=== PATIENT | female | born 1975 | race African-American/Black ===

== ENCOUNTER 2017-09-22 21:35 | Emergency (ER) | payer OTHER ==
[~2017-09-22] VITALS: Ht 160 cm; Wt 101.2 kg
--- OUTSIDE RECORDS SUMMARY | 2017-09-22 21:37 | XMS REPORT ---
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 Allergies, Adverse Reactions, Alerts This patient has no known allergies or adverse reactions. Medications This patient has no known medications. Encounters Start Date/Time End Date/Time Encounter Type Admission Type Attending [facility] Care Department Encounter ID 2017-10-26 00:00:00 2017-10-26 00:00:00 Outpatient [facility] [id number] 2017-09-12 15:39:06 2017-09-12 15:39:06 Outpatient [facility] [id number] 2017-09-12 13:19:03 2017-09-12 13:19:03 Outpatient [facility] [id number] 2017-09-12 09:22:52 2017-09-12 09:22:52 Outpatient [facility] [id number] 2017-08-01 00:00:00 2017-08-01 00:00:00 Outpatient [facility] [id number] 2017-07-20 07:57:59 2017-07-20 07:57:59 Outpatient [facility] [id number] 2017-07-18 00:00:00 2017-07-18 00:00:00 Outpatient [facility] [id number] 2017-06-27 08:44:25 2017-06-27 08:44:25 Outpatient [facility] [id number] 2017-06-27 00:00:00 2017-06-27 00:00:00 Outpatient [facility] [id number] 2017-06-22 08:21:48 2017-06-22 08:21:48 Outpatient [facility] [id number] 2017-05-24 13:43:41 2017-05-24 13:43:41 Outpatient [facility] [id number] 2017-05-24 12:24:44 2017-05-24 12:24:44 Outpatient [facility] [id number] 2017-05-23 12:15:28 2017-05-23 12:15:28 Outpatient [facility] [id number] 2017-05-23 11:27:53 2017-05-23 11:27:53 Outpatient [facility] [id number] 2017-05-23 00:00:00 2017-05-23 00:00:00 Outpatient [facility] [id number] 2017-05-01 00:00:00 2017-05-01 00:00:00 Outpatient [facility] [id number] 2017-05-01 00:00:00 2017-05-01 00:00:00 Outpatient [facility] [id number] 2017-04-27 07:29:25 2017-04-27 07:29:25 Outpatient [facility] [id number] 2017-04-25 11:14:03 2017-04-25 11:14:03 Outpatient [facility] [id number] 2017-03-16 00:00:00 2017-03-16 00:00:00 Outpatient [facility] [id number] 2017-03-09 00:00:00 2017-03-09 00:00:00 Outpatient [facility] [id number] 2017-03-01 00:00:00 2017-03-01 00:00:00 Outpatient [facility] [id number] 2017-02-23 11:05:12 2017-02-23 11:05:12 Outpatient [facility] [id number] 2017-02-23 10:14:23 2017-02-23 10:14:23 Outpatient [facility] [id number] 2017-02-23 08:41:58 2017-02-23 08:41:58 Outpatient [facility] [id number] 2017-01-31 08:33:33 2017-01-31 08:33:33 Outpatient [facility] [id number] 2017-01-31 08:30:06 2017-01-31 08:30:06 Outpatient [facility] [id number] 2017-01-30 15:46:45 2017-01-30 15:46:45 Outpatient [facility] [id number] 2017-01-12 15:35:30 2017-01-12 15:35:30 Outpatient [facility] [id number] 2017-01-12 00:00:00 2017-01-12 00:00:00 Outpatient [facility] [id number] 2017-01-10 00:00:00 2017-01-10 00:00:00 Outpatient [facility] [id number] 2016-12-30 00:00:00 2016-12-30 00:00:00 Outpatient [facility] [id number] 2016-12-06 00:00:00 2016-12-06 00:00:00 Outpatient [facility] [id number] 2016-12-02 10:48:11 2016-12-02 10:48:11 Outpatient [facility] [id number] 2016-12-02 09:11:43 2016-12-02 09:11:43 Outpatient [facility] [id number] 2016-12-02 08:27:22 2016-12-02 08:27:22 Outpatient [facility] [id number] 2016-12-02 00:00:00 2016-12-02 00:00:00 Outpatient [facility] [id number] 2016-12-02 00:00:00 2016-12-02 00:00:00 Outpatient [facility] [id number] 2016-12-02 00:00:00 2016-12-02 00:00:00 Outpatient [facility] [id number] 2016-11-15 08:28:24 2016-11-15 08:28:24 Outpatient [facility] [id number] 2014-12-11 08:31:53 2014-12-11 08:31:53 Outpatient [facility] [id number]
[2017-09-22] MEDS ORDERED: ALBUTEROL SULFAT2 MG PO (21:59)
[2017-09-22] MEDS ORDERED: AMLODIPINE BESY10 MG PO (21:59)
[2017-09-22] MEDS ORDERED: MORPHINE SULFATE 2 MG/ML SYR IV STA (22:27)
[2017-09-22] MEDS ORDERED: ONDANSETRON HCL INJ 2 MG/ML VIAL IV STA (22:34)
[2017-09-22] MEDS ORDERED: SODIUM CHLORIDE 0.9% 1000ML 1,000 ML IV SCH (23:30)
[2017-09-23 00:45] VITALS: BP 128/84
== END 2017-09-23 00:50 | disposition home or self-care (01) ==
LOC: FSED 21:35
DX: M54.5 Low back pain (principal); K58.9 Irritable bowel syndrome, unspecified; F17.210 Nicotine dependence, cigarettes, uncomplicated
CPT/HCPCS: 74176; 81003; 99283; J2270; J2405

== ENCOUNTER 2018-05-22 21:38 | Emergency (ER) | payer MEDICARE ==
[~2018-05-22] VITALS: Ht 160 cm; Wt 63.5 kg
[~2018-05-22 21:38] MED LIST: ALBUTEROL SULFAT2 MG PO; AMLODIPINE BESY10 MG PO
--- OUTSIDE RECORDS SUMMARY | 2018-05-22 21:42 | XMS REPORT | Continuity of Care Document ---
Author Author [facility] Address Unknown Phone Unavailable Problems Problem Status Onset Date Classification Date Reported Comments Source LWBS Active 07/20/2012 [facility] BOIL RIGHT ARMPIT, STOMACH PAIN Active 07/16/2012 [facility] ABDOMINAL/BACK PAIN Active 06/24/2012 [facility] Diabetes mellitus type 2 Active Problem 07/23/2012 [facility] Hypertension Active Problem 07/23/2012 [facility] Ulcer<sup>1</sup> Active Problem 07/23/2012 1gastric ulcer [facility] Medications Medication Details Route Status Patient Instructions Ordering Provider Order Date Source [place] 5/325 oral tablet 1-2 tab, PO, Q4-6H, PRN, 15 tab, Pain, Substitution Allowed, Maintenance PO Active [facility] 07/17/2012 [facility] clindamycin 300 mg oral capsule 300 mg, 1 cap, PO, QID, 28 cap, Substitution Allowed PO Active [facility] 07/17/2012 [facility] acetaminophen-hydrocodone 325 mg-5 mg oral tablet 1 tab, Route: PO, Dosing Weight 99.091, kg, ONCE, STAT, Start date: 07/16/12 18:33:00, Stop date: 07/16/12 18:33:00 PO No Longer Active [facility] 07/17/2012 [facility] Cipro 500 mg oral tablet 500 mg, 1 tab, PO, Q12H, 10 tab, Substitution Allowed, TAB PO Active 06/25/2012 [facility] Protonix 20 mg oral enteric coated tablet 40 mg, 2 tab, PO, Daily, 60 tab, Substitution Allowed, ECTAB PO Active 06/25/2012 [facility] Cipro 500 mg oral tablet 500 mg, 1 tab, PO, Q12H, 6 tab, Substitution Allowed, TAB PO No Longer Active 06/25/2012 [facility] metFORmin 500 mg oral tablet 500 mg, 1 tab, PO, BID, 30 tab, Substitution Allowed PO Active 06/25/2012 [facility] diclofenac sodium 75 mg oral enteric coated tablet 75 mg, 1 tab, PO, BID, 60 tab, Substitution Allowed, ECTAB PO Active 06/25/2012 [facility] Flexeril 10 mg oral tablet 10 mg, 1 tab, PO, Daily, PRN, 30 tab, for spasm, Substitution Allowed, TAB PO Active 06/25/2012 [facility] Advil 200 mg oral tablet 400 mg, 2 tab, PO, Q4H, PRN, 120 tab, Pain, Substitution Allowed, TAB PO Active 06/25/2012 [facility] Maalox 30 mL, Route: PO, Drug Form: SUSP, Dosing Weight 100, kg, ONCE, Start date: 06/24/12 18:46:00, Stop date: 06/24/12 18:46:00 PO No Longer Active [place] 06/25/2012 [facility] Xylocaine Viscous 2% mucous membrane solution 30 mL, Route: PO, Drug Form: SOLN, Dosing Weight 100, kg, ONCE, Start date: 06/24/12 18:46:00, Stop date: 06/24/12 18:46:00 PO No Longer Active [place] 06/25/2012 [facility] Protonix 40 mg, 1 tab, Route: PO, Drug form: ECTAB, ONCE, Dosing Weight 100, kg, Priority: STAT, Start date: 06/24/12 18:44:00, Stop date: 06/24/12 18:44:00 PO No Longer Active [place] 06/25/2012 [facility] morphine Sulfate 4 mg, 1 mL, Route: IVP, Drug form: INJ, ONCE, Dosing Weight 100, kg, Priority: STAT, Start date: 06/24/12 17:16:00, Stop date: 06/24/12 17:16:00 IVP No Longer Active [place] 06/24/2012 [facility] Zofran 4 mg, 2 mL, Route: IVP, Drug form: INJ, ONCE, Dosing Weight 100, kg, Priority: STAT, Start date: 06/24/12 17:16:00, Stop date: 06/24/12 17:16:00 IVP No Longer Active [place] 06/24/2012 [facility] NS (Bolus) IV 1,000 mL, 1000 ml/hr, Route: IV, Drug Form: INJ, Dosing Weight 100, kg, ONCE, STAT, Start date: 06/24/12 17:16:00, Duration: 1 doses or times, Stop date: 06/24/12 17:16:00 IV No Longer Active [place] 06/24/2012 [facility] Allergies, Adverse Reactions, Alerts Substance Category Reaction Severity Reaction type Status Date Reported Comments Source Immunizations Immunization Date Given Site Status Last Updated Comments Source Results Order Name Results Value Reference Range Date Interpretation Comments Source CHEMISTRY Lactic Acid Lvl 0.8 mMol/L 0.5 - 2.2 06/25/2012 Normal [facility] CHEMISTRY Lipase Lvl 112 unit/L 73 - 393 06/25/2012 Normal [facility] CHEMISTRY eGFR 94 mL/min/1.73m2 06/25/2012 NA 1Result Comment: The eGFR is calculated using the CKD-EPI formula. In most young, healthy individuals the eGFR will be >90 mL/min/1.73m2. The eGFR declines with age. An eGFR of 60-89 may be normal in some populations, particularly the elderly, for whom the CKD-EPI formula has not been extensively validated. Use of the eGFR is not recommended in the following populations: Individuals with unstable creatinine concentrations, including patients and those with serious co-morbid conditions. Patients with extremes in muscle mass or diet. The data above are obtained from the National Kidney Disease Education Program (NKDEP) which additionally recommends that when the eGFR is used in patients with extremes of body mass index for purposes of drug dosing, the eGFR should be multiplied by the estimated BMI. [facility] CHEMISTRY B/C Ratio 9 6 - 25 06/25/2012 Normal [facility] CHEMISTRY AST 8 unit/L 0 - 37 06/25/2012 Normal [facility] CHEMISTRY AGAP 9.2 meq/L 10.0 - 20.0 06/25/2012 LOW [facility] CHEMISTRY Globulin 4.2 g/dL 2.0 - 4.0 06/25/2012 HI [facility] CHEMISTRY A/G Ratio 0.9 0.7 - 1.6 06/25/2012 Normal [facility] CHEMISTRY Potassium Lvl 4.2 meq/L 3.5 - 5.1 06/25/2012 Normal [facility] CHEMISTRY Chloride Lvl 106 meq/L 95 - 109 06/25/2012 Normal [facility] CHEMISTRY CO2 26 meq/L 24 - 32 06/25/2012 Normal [facility] CHEMISTRY BUN 8 mg/dL 7 - 22 06/25/2012 Normal [facility] CHEMISTRY Glucose Lvl 93 mg/dL 70 - 99 06/25/2012 Normal 2Interpretive Data: Adult reference range values reflect the clinical guidelines of the [place] [employer]. [facility] CHEMISTRY Alk Phos 64 unit/L 39 - 136 06/25/2012 Normal [facility] CHEMISTRY Total Protein 7.8 g/dL 6.4 - 8.4 06/25/2012 Normal [facility] CHEMISTRY Creatinine Lvl 0.9 mg/dL 0.5 - 1.4 06/25/2012 Normal [facility] CHEMISTRY Sodium Lvl 137 meq/L 135 - 145 06/25/2012 Normal [facility] CHEMISTRY Calcium Lvl 8.5 mg/dL 8.5 - 10.5 06/25/2012 Normal [facility] CHEMISTRY Bili Total 0.3 mg/dL 0.2 - 1.3 06/25/2012 Normal [facility] CHEMISTRY Albumin Lvl 3.6 g/dL 3.5 - 5.0 06/25/2012 Normal [facility] CHEMISTRY ALT 14 unit/L 0 - 65 06/25/2012 Normal [facility] HEMATOLOGY Basophils # 0.2 K/CMM 0.0 - 0.2 06/25/2012 Normal [facility] HEMATOLOGY Eosinophils # 0.4 K/CMM 0.0 - 0.5 06/25/2012 Normal [facility] HEMATOLOGY Monocytes # 0.7 K/CMM 0.0 - 0.8 06/25/2012 Normal [facility] HEMATOLOGY Lymphocytes # 4.1 K/CMM 1.0 - 5.5 06/25/2012 Normal [facility] HEMATOLOGY Segs-Bands # 3.6 K/CMM 1.5 - 8.1 06/25/2012 Normal [facility] HEMATOLOGY Lymphocytes 45.5 % 20.0 - 40.0 06/25/2012 [facility] HEMATOLOGY Eosinophils 4.1 % 0.0 - 4.0 06/25/2012 [facility] HEMATOLOGY Monocytes 7.9 % 2.0 - 12.0 06/25/2012 Normal [facility] HEMATOLOGY Basophils 2.5 % 0.0 - 1.0 06/25/2012 [facility] HEMATOLOGY Segs 40.0 % 45.0 - 75.0 06/25/2012 LOW [facility] HEMATOLOGY WBC 9.0 K/CMM 3.7 - 10.4 06/25/2012 Normal [facility] HEMATOLOGY RBC 4.27 M/CMM 4.20 - 5.40 06/25/2012 Normal [facility] HEMATOLOGY MCHC 32.8 g/dL 32.0 - 36.0 06/25/2012 Normal [facility] HEMATOLOGY MCH 30.7 pg 27.0 - 31.0 06/25/2012 Normal [facility] HEMATOLOGY MCV 93.5 fL 81.0 - 99.0 06/25/2012 Normal [facility] HEMATOLOGY Hct 39.9 % 36.0 - 48.0 06/25/2012 Normal [facility] HEMATOLOGY Hgb 13.1 g/dL 12.0 - 16.0 06/25/2012 Normal [facility] HEMATOLOGY Platelet 245 K/CMM 133 - 450 06/25/2012 Normal [facility] HEMATOLOGY RDW 13.9 % 11.5 - 14.5 06/25/2012 Normal [facility] HEMATOLOGY MPV 9.1 fL 7.4 - 10.4 06/25/2012 Normal [facility] CHEMISTRY U Preg Negative (06/24/2012 17:47:00) Negative 06/24/2012 Normal [facility] URINALYSIS UA RBC None Seen (06/24/2012 17:47:00) 0 - 2 06/24/2012 Normal [facility] URINALYSIS UA Bacteria Few /HPF (06/24/2012 17:47:00) None Seen 06/24/2012 Normal [facility] URINALYSIS Micro? Performed (06/24/2012 17:47:00) 06/24/2012 Normal [facility] URINALYSIS UA Sq Epi Occasional /LPF (06/24/2012 17:47:00) Few 06/24/2012 Normal [facility] URINALYSIS UA WBC 11-20 /HPF *ABN* (06/24/2012 17:47:00) None Seen 06/24/2012 ABN [facility] URINALYSIS UA Leuk Est Moderate *ABN* (06/24/2012 17:47:00) Negative 06/24/2012 ABN [facility] URINALYSIS UA Blood Negative (06/24/2012 17:47:00) Negative 06/24/2012 Normal [facility] URINALYSIS UA Nitrite Negative (06/24/2012 17:47:00) Negative 06/24/2012 Normal [facility] URINALYSIS UA Urobilinogen 0.2 EU/dL 0.1 - 1.0 06/24/2012 Normal [facility] URINALYSIS UA Turbidity Slight Cloudy (06/24/2012 17:47:00) Clear 06/24/2012 Normal [facility] URINALYSIS UA Glucose Negative (06/24/2012 17:47:00) Negative 06/24/2012 Normal [facility] URINALYSIS UA Ketones Negative *NA* (06/24/2012 17:47:00) Negative 06/24/2012 NA [facility] URINALYSIS UA pH 6.0 5.0 - 8.0 06/24/2012 Normal [facility] URINALYSIS UA Protein Negative (06/24/2012 17:47:00) Negative 06/24/2012 Normal [facility] URINALYSIS UA Spec Grav 1.015 <=1.030 06/24/2012 Normal [facility] URINALYSIS UA Color Yellow *NA* (06/24/2012 17:47:00) Yellow 06/24/2012 NA [facility] URINALYSIS UA Bili Negative *NA* (06/24/2012 17:47:00) Negative 06/24/2012 NA [facility] Vital Signs Vital Sign Value Date Comments Source Weight 99.091 07/21/2012 [facility] Height 162.56 cm 07/21/2012 [facility] Weight 99.091 07/16/2012 [facility] Height 162.56 cm 07/16/2012 [facility] Height 165.10 cm 06/24/2012 [facility] Weight 100.000 06/24/2012 [facility] Encounters Location Location Details Encounter Type Encounter Number Reason For Visit Attending Provider ADM Date DC Date Status Source [facility] Emergency [id number] COLIN WEINER 06/24/2012 06/24/2012 Active [facility] Emergency [id number] CARRILLO ALEMAN 07/16/2012 07/16/2012 Active [facility] [id number] DOMI FAYE 07/20/2012 07/21/2012 Active [facility] Procedures Procedure Code Date Perfomer Comments Source
--- OUTSIDE RECORDS SUMMARY | 2018-05-22 21:42 | XMS REPORT | CCD ---
Author Author Auto Generated Organization [facility] Address Unknown Phone Unavailable Care Team Providers Care Companion Name Role Phone Press, Jacky Steve CP Allergies, Adverse Reactions, Alerts Substance Reaction Status NKDA Active Problem List Condition Effective Dates Status Diabetes mellitus type 2 Active Hypertension Active Ulcer1 Active 1gastric ulcer Medications Medication Instructions Start Date End Date Status [place] 5/325 oral 1-2 tab, PO, Q4-6H, PRN, 15 tab, 07/16/2012 07/21/2012 Ordered tablet Pain, Substitution Allowed, Maintenance clindamycin 300 mg 300 mg, 1 cap, PO, QID, 28 cap, 07/16/2012 07/23/2012 Ordered oral capsule Substitution Allowed acetaminophen-hydroc 1 tab, Route: PO, Dosing Weight 07/16/2012 07/16/2012 Completed odone 325 mg-5 mg 99.091, kg, ONCE, STAT, Start date: oral tablet 07/16/12 18:33:00, Stop date: 07/16/12 18:33:00 Vital Signs Most recent to oldest [Reference Range]: 1 Height 162.56 cm (07/16/2012 17:02:00) Weight 99.091 kg (07/16/2012 17:02:00)
--- OUTSIDE RECORDS SUMMARY | 2018-05-22 21:42 | XMS REPORT | CCD ---
Author Author Auto Generated Organization [facility] Address Unknown Phone Unavailable Care Team Providers Care [employer] Director Name Role Phone Jim Nievesin Marcial CP Allergies, Adverse Reactions, Alerts Substance Reaction Status NKDA Active Problem List Condition Effective Dates Status Diabetes mellitus type 2 Active Hypertension Active Ulcer1 Active 1gastric ulcer Medications Medication Instructions Start Date End Date Status Cipro 500 mg oral 500 mg, 1 tab, PO, Q12H, 10 tab, 06/24/2012 06/29/2012 Ordered tablet Substitution Allowed, TAB Protonix 20 mg oral 40 mg, 2 tab, PO, Daily, 60 tab, 06/24/2012 Ordered enteric coated Substitution Allowed, ECTAB tablet Cipro 500 mg oral 500 mg, 1 tab, PO, Q12H, 6 tab, 06/24/2012 06/24/2012 Discontinued tablet Substitution Allowed, TAB metFORmin 500 mg 500 mg, 1 tab, PO, BID, 30 tab, 06/24/2012 Ordered oral tablet Substitution Allowed diclofenac sodium 75 75 mg, 1 tab, PO, BID, 60 tab, 06/24/2012 Ordered mg oral enteric Substitution Allowed, ECTAB coated tablet Flexeril 10 mg oral 10 mg, 1 tab, PO, Daily, PRN, 30 06/24/2012 Ordered tablet tab, for spasm, Substitution Allowed, TAB Advil 200 mg oral 400 mg, 2 tab, PO, Q4H, PRN, 120 06/24/2012 Ordered tablet tab, Pain, Substitution Allowed, TAB morphine Sulfate 4 mg, 1 mL, Route: IVP, Drug form: 06/24/2012 06/24/2012 Completed INJ, ONCE, Dosing Weight 100, kg, Priority: STAT, Start date: 06/24/12 17:16:00, Stop date: 06/24/12 17:16:00 Zofran 4 mg, 2 mL, Route: IVP, Drug form: 06/24/2012 06/24/2012 Completed INJ, ONCE, Dosing Weight 100, kg, Priority: STAT, Start date: 06/24/12 17:16:00, Stop date: 06/24/12 17:16:00 NS (Bolus) IV 1,000 mL, 1000 ml/hr, Route: IV, 06/24/2012 06/24/2012 Completed Drug Form: INJ, Dosing Weight 100, kg, ONCE, STAT, Start date: 06/24/12 17:16:00, Duration: 1 doses or times, Stop date: 06/24/12 17:16:00 Maalox 30 mL, Route: PO, Drug Form: SUSP, 06/24/2012 06/24/2012 Completed Dosing Weight 100, kg, ONCE, Start date: 06/24/12 18:46:00, Stop date: 06/24/12 18:46:00 Xylocaine Viscous 2% 30 mL, Route: PO, Drug Form: SOLN, 06/24/2012 06/24/2012 Completed mucous membrane Dosing Weight 100, kg, ONCE, Start solution date: 06/24/12 18:46:00, Stop date: 06/24/12 18:46:00 Protonix 40 mg, 1 tab, Route: PO, Drug form: 06/24/2012 06/24/2012 Completed ECTAB, ONCE, Dosing Weight 100, kg, Priority: STAT, Start date: 06/24/12 18:44:00, Stop date: 06/24/12 18:44:00 Vital Signs Most recent to oldest [Reference Range]: 1 Height 165.10 cm (06/24/2012 17:06:00) Weight 100.000 kg (06/24/2012 17:06:00) Results URINALYSIS Most recent to oldest [Reference Range]: 1 UA Turbidity [Clear] Slight Cloudy (06/24/2012 17:47:00) UA Color [Yellow] Yellow *NA* (06/24/2012 17:47:00) UA pH [5.0-8.0] 6.0 (06/24/2012 17:47:00) UA Spec Grav [<=1.030] 1.015 (06/24/2012 17:47:00) UA Glucose [Negative] Negative (06/24/2012 17:47:00) UA Blood [Negative] Negative (06/24/2012 17:47:00) UA Ketones [Negative] Negative *NA* (06/24/2012 17:47:00) UA Protein [Negative] Negative (06/24/2012 17:47:00) UA Urobilinogen [0.1-1.0 EU/dL] 0.2 EU/dL (06/24/2012 17:47:00) UA Bili [Negative] Negative *NA* (06/24/2012 17:47:00) UA Leuk Est [Negative] Moderate *ABN* (06/24/2012 17:47:00) UA Nitrite [Negative] Negative (06/24/2012 17:47:00) UA WBC [None Seen /HPF] 11-20 /HPF *ABN* (06/24/2012 17:47:00) UA RBC [0-2] None Seen (06/24/2012 17:47:00) UA Bacteria [None Seen /HPF] Few /HPF (06/24/2012 17:47:00) UA Sq Epi [Few /LPF] Occasional /LPF (06/24/2012 17:47:00) Micro? Performed (06/24/2012 17:47:00) CHEMISTRY Most recent to oldest [Reference Range]: 1 Sodium Lvl [135-145 mEq/L] 137 mEq/L (06/24/2012 18:10:00) Potassium Lvl [3.5-5.1 mEq/L] 4.2 mEq/L (06/24/2012 18:10:00) Chloride Lvl [95-109 mEq/L] 106 mEq/L (06/24/2012 18:10:00) CO2 [24-32 mEq/L] 26 mEq/L (06/24/2012 18:10:00) AGAP [10.0-20.0 mEq/L] 9.2 mEq/L *LOW* (06/24/2012 18:10:00) Creatinine Lvl [0.5-1.4 mg/dL] 0.9 mg/dL (06/24/2012 18:10:00) eGFR 94 mL/min/1.73m2 1 *NA* (06/24/2012 18:10:00) BUN [7-22 mg/dL] 8 mg/dL (06/24/2012 18:10:00) B/C Ratio [6-25] 9 (06/24/2012 18:10:00) Glucose Lvl [70-99 mg/dL] 93 mg/dL 2 (06/24/2012 18:10:00) Total Protein [6.4-8.4 g/dL] 7.8 g/dL (06/24/2012 18:10:00) Albumin Lvl [3.5-5.0 g/dL] 3.6 g/dL (06/24/2012 18:10:00) Globulin [2.0-4.0 g/dL] 4.2 g/dL *HI* (06/24/2012 18:10:00) A/G Ratio [0.7-1.6] 0.9 (06/24/2012 18:10:00) Calcium Lvl [8.5-10.5 mg/dL] 8.5 mg/dL (06/24/2012 18:10:00) ALT [0-65 unit/L] 14 unit/L (06/24/2012 18:10:00) AST [0-37 unit/L] 8 unit/L (06/24/2012 18:10:00) Alk Phos [39-136 unit/L] 64 unit/L (06/24/2012 18:10:00) Bili Total [0.2-1.3 mg/dL] 0.3 mg/dL (06/24/2012 18:10:00) Lipase Lvl [73-393 unit/L] 112 unit/L (06/24/2012 18:10:00) Lactic Acid Lvl [0.5-2.2 mMol/L] 0.8 mMol/L (06/24/2012 18:10:00) U Preg [Negative] Negative (06/24/2012 17:47:00) 1Result Comment: The eGFR is calculated using [...] from the National Kidney Disease Education Program ( NKDEP) which additionally recommends that when the eGFR is used in patients with extremes of body mass index for purposes of drug dosing, the eGFR should be mul tiplied by the estimated BMI. 2Interpretive Data: Adult reference range values reflect the clinical guidelines of the [place] [employer]. HEMATOLOGY Most recent to oldest [Reference Range]: 1 WBC [3.7-10.4 K/CMM] 9.0 K/CMM (06/24/2012 18:10:00) RBC [4.20-5.40 M/CMM] 4.27 M/CMM (06/24/2012 18:10:00) Hgb [12.0-16.0 g/dL] 13.1 g/dL (06/24/2012:10:00) Hct [36.0-48.0 %] 39.9 % (06/24/2012 18:10:00) MCV [81.0-99.0 fL] 93.5 fL (06/24/2012 18:10:00) MCH [27.0-31.0 pg] 30.7 pg (06/24/2012 18:10:00) MCHC [32.0-36.0 g/dL] 32.8 g/dL (06/24/2012:10:00) RDW [11.5-14.5 %] 13.9 % (06/24/2012 18:10:00) Platelet [133-450 K/CMM] 245 K/CMM (06/24/2012 18:10:00) MPV [7.4-10.4 fL] 9.1 fL (06/24/2012:10:00) Segs [45.0-75.0 %] 40.0 % *LOW* (06/24/2012:10:00) Lymphocytes [20.0-40.0 %] 45.5 % *HI* (06/24/2012:10) Monocytes [2.0-12.0 %] 7.9 % (06/24/2012 18:10:00) Eosinophils [0.0-4.0 %] 4.1 % *HI* (06/24/2012 18:10:00) Basophils [0.0-1.0 %] 2.5 % *HI* (06/24/2012 18:10:00) Segs-Bands # [1.5-8.1 K/CMM] 3.6 K/CMM (06/24/2012 18:10:00) Lymphocytes # [1.0-5.5 K/CMM] 4.1 K/CMM (06/24/2012 18:10:00) Monocytes # [0.0-0.8 K/CMM] 0.7 K/CMM (06/24/2012 18:10:00) Eosinophils # [0.0-0.5 K/CMM] 0.4 K/CMM (06/24/2012 18:10:00) Basophils # [0.0-0.2 K/CMM] 0.2 K/CMM (06/24/2012 18:10:00)
--- OUTSIDE RECORDS SUMMARY | 2018-05-22 21:42 | XMS REPORT | CCD ---
Author Author Auto Generated Organization [facility] Address Unknown Phone Unavailable Care Team Providers Care Category Development Manager Name Role Phone Jevon Magana CP Allergies, Adverse Reactions, Alerts Substance Reaction Status NKDA Active Problem List Condition Effective Dates Status Diabetes mellitus type 2 Active Hypertension Active Ulcer1 Active 1gastric ulcer Vital Signs Most recent to oldest [Reference Range]: 1 Height 162.56 cm (07/20/2012 23:58:00) Weight 99.091 kg (07/20/2012 23:58:00)
[2018-05-22] MEDS ORDERED: MORPHINE SULFATE 5 MG/ML VIAL IV STA (22:00)
[2018-05-22] MEDS ORDERED: ONDANSETRON HCL INJ 2 MG/ML VIAL IV STA (22:00)
[2018-05-22] MEDS ORDERED: SODIUM CHLORIDE 0.9% 1000 ML BAG IV ONE (22:15)
--- NOTE | 2018-05-22 23:40 | Diagnostic Imaging Report ---
EXAM: CT Abdomen and Pelvis WITH contrast INDICATION: Rectal and vaginal bleeding with abdominal pain. Left lower quadrant pain for 3 days. ^[id number] ^[id number] COMPARISON: None. TECHNIQUE: Abdomen and pelvis were scanned utilizing a multidetector helical scanner from the lung base to the pubic symphysis after administration of IV contrast. Coronal and sagittal reformations were obtained. Routine protocol was performed. Scan was performed when during portal venous phase. IV CONTRAST: 100 mL of Isovue-370 ORAL CONTRAST: Water COMPLICATIONS: None RADIATION DOSE: Total DLP: 532.9 mGy*cm Estimated effective dose: (DLP x 0.015 x size factor) mSv CTDIvol has been reviewed. It is below the limits set by the Radiation Protocol Committee (RPC). Dose modulation, iterative reconstruction, and/or weight based adjustment of the mA/kV was utilized to reduce the radiation dose to as low as reasonably achievable. FINDINGS: LINES and TUBES: None. LOWER THORAX: Small hiatal hernia containing some of the gastric sleeve sutures. HEPATOBILIARY: Fat attenuation along the falciform ligament likely representing focal fatty infiltration. Ill-defined subtle approximately 2.4 cm hypoattenuating area in the right hepatic lobe (series 2 image 32). No biliary ductal dilation. GALLBLADDER: No radio-opaque stones or sludge. No wall thickening. SPLEEN: No splenomegaly. PANCREAS: No focal masses or ductal dilatation. ADRENALS: No adrenal nodules KIDNEYS/URETERS: Kidneys enhance symmetrically. No hydronephrosis. No cystic or solid mass lesions. No stones. GI TRACT: Gastric sleeve. No abnormal distention, wall thickening, or evidence of bowel obstruction. Moderate amount of stool in the colon. Appendix is normal. PELVIC ORGANS/BLADDER: Hysterectomy. Bladder is collapsed, limiting evaluation. LYMPH NODES: No lymphadenopathy. VESSELS: Unremarkable. PERITONEUM / RETROPERITONEUM: No free air or fluid. BONES: Unremarkable. SOFT TISSUES: Small fat-containing inguinal hernias. Small fat-containing left lower quadrant Spigelian hernias (series 2 image 51 and 60). IMPRESSION: 1. No acute abnormalities in the abdomen or pelvis. 2. Indeterminate lesion in the right hepatic lobe. Recommend further evaluation with nonemergent MRI liver mass protocol. 3. Small hiatal hernia containing a portion of the gastric sleeve sutures. 4. Of note, provided history describes prior cholecystectomy although the gallbladder is present. Signed by: DR. Reji Gonzalez MD on 05/22/2018 11:37 PM
== END 2018-05-23 00:27 | disposition home or self-care (01) ==
LOC: FSED 21:38
DX: R10.32 Left lower quadrant pain (principal); K43.9 Ventral hernia without obstruction or gangrene; I10 Essential (primary) hypertension; M79.7 Fibromyalgia
CPT/HCPCS: 74177; 80048; 80076; 80307; 81003; 85025; 99284; J7030

== ENCOUNTER 2018-06-11 21:44 | Emergency (ER) | payer MEDICARE ==
[~2018-06-11] VITALS: Ht 160 cm; Wt 56.7 kg
== END 2018-06-11 22:30 | disposition home or self-care (01) ==
LOC: FSED 21:44
DX: H00.11 Chalazion right upper eyelid (principal); F17.210 Nicotine dependence, cigarettes, uncomplicated
CPT/HCPCS: 99283

== ENCOUNTER 2018-06-25 22:15 | Emergency (ER) | payer MEDICARE ==
[~2018-06-25] VITALS: Ht 160 cm; Wt 56.7 kg
--- OUTSIDE RECORDS SUMMARY | 2018-06-25 22:19 | XMS REPORT | Continuity of Care Document ---
Author Author Roly [facility] Interface Address Unknown Phone Unavailable Problems Problem Status Onset Date Classification Date Reported Comments Source LWBS Active 07/20/2012 [facility] BOIL RIGHT ARMPIT, STOMACH PAIN Active 07/16/2012 [facility] ABDOMINAL/BACK PAIN Active 06/24/2012 [facility] Diabetes mellitus type 2 Active Problem 07/23/2012 [facility] Hypertension Active Problem 07/23/2012 [facility] Ulcer<sup>1</sup> Active Problem 07/23/2012 1gastric ulcer [facility] Medications Medication Details Route Status Patient Instructions Ordering Provider Order Date Source Walker 5/325 oral tablet 1-2 tab, PO, Q4-6H, PRN, 15 tab, Pain, Substitution Allowed, Maintenance PO Active [facility] 07/17/2012 [facility] clindamycin 300 mg oral capsule 300 mg, 1 cap, PO, QID, 28 cap, Substitution Allowed PO Active [facility] 07/17/2012 [facility] acetaminophen-hydrocodone 325 mg-5 mg oral tablet 1 tab, Route: PO, Dosing Weight 99.091, kg, ONCE, STAT, Start date: 07/16/12 18:33:00, Stop date: 07/16/12 18:33:00 PO No Longer Active [facility] 07/17/2012 [facility] Cipro 500 mg oral tablet 500 mg, 1 tab, PO, Q12H, 10 tab, Substitution Allowed, TAB PO Active 06/25/2012 [facility] Protonix 20 mg oral enteric coated tablet 40 mg, 2 tab, PO, Daily, 60 tab, Substitution Allowed, ECTAB PO Active 06/25/2012 [facility] Cipro 500 mg oral tablet 500 mg, 1 tab, PO, Q12H, 6 tab, Substitution Allowed, TAB PO No Longer Active 06/25/2012 [facility] metFORmin 500 mg oral tablet 500 mg, 1 tab, PO, BID, 30 tab, Substitution Allowed PO Active 06/25/2012 [facility] diclofenac sodium 75 mg oral enteric coated tablet 75 mg, 1 tab, PO, BID, 60 tab, Substitution Allowed, ECTAB PO Active 06/25/2012 [facility] Flexeril 10 mg oral tablet 10 mg, 1 tab, PO, Daily, PRN, 30 tab, for spasm, Substitution Allowed, TAB PO Active 06/25/2012 [facility] Advil 200 mg oral tablet 400 mg, 2 tab, PO, Q4H, PRN, 120 tab, Pain, Substitution Allowed, TAB PO Active 06/25/2012 [facility] Maalox 30 mL, Route: PO, Drug Form: SUSP, Dosing Weight 100, kg, ONCE, Start date: 06/24/12 18:46:00, Stop date: 06/24/12 18:46:00 PO No Longer Active [place] 06/25/2012 [facility] Xylocaine Viscous 2% mucous membrane solution 30 mL, Route: PO, Drug Form: SOLN, Dosing Weight 100, kg, ONCE, Start date: 06/24/12 18:46:00, Stop date: 06/24/12 18:46:00 PO No Longer Active [place] 06/25/2012 [facility] Protonix 40 mg, 1 tab, Route: PO, Drug form: ECTAB, ONCE, Dosing Weight 100, kg, Priority: STAT, Start date: 06/24/12 18:44:00, Stop date: 06/24/12 18:44:00 PO No Longer Active [place] 06/25/2012 [facility] morphine Sulfate 4 mg, 1 mL, Route: IVP, Drug form: INJ, ONCE, Dosing Weight 100, kg, Priority: STAT, Start date: 06/24/12 17:16:00, Stop date: 06/24/12 17:16:00 IVP No Longer Active [place] 06/24/2012 [facility] Zofran 4 mg, 2 mL, Route: IVP, Drug form: INJ, ONCE, Dosing Weight 100, kg, Priority: STAT, Start date: 06/24/12 17:16:00, Stop date: 06/24/12 17:16:00 IVP No Longer Active [place] 06/24/2012 [facility] NS (Bolus) IV 1,000 mL, 1000 ml/hr, Route: IV, Drug Form: INJ, Dosing Weight 100, kg, ONCE, STAT, Start date: 06/24/12 17:16:00, Duration: 1 doses or times, Stop date: 06/24/12 17:16:00 IV No Longer Active [place] 06/24/2012 [facility] Albuterol Sulfate 2 Mg Tablet Twice A Day Active [facility] Amlodipine Besylate 10 Mg Tablet Twice A Day Active [facility] Albuterol Sulfate 2 Mg Tablet Twice A Day Active [facility] Amlodipine Besylate 10 Mg Tablet Twice A Day Active [facility] Allergies, Adverse Reactions, Alerts Substance Category Reaction Severity Reaction type Status Date Reported Comments Source Tramadol RASH Intermediate Allergy to Substance Active 05/22/2018 [facility] Immunizations Immunization Date Given Site Status Last Updated Comments Source Results Order Name Results Value Reference Range Date Interpretation Comments Source CHEMISTRY Lactic Acid Lvl 0.8 mMol/L 0.5 - 2.2 06/25/2012 Normal [facility] CHEMISTRY Lipase Lvl 112 unit/L 73 - 393 06/25/2012 Normal [facility] CHEMISTRY eGFR 94 mL/min/1.73m2 06/25/2012 NA 1Result [...] should be multiplied by the estimated BMI. [facility] CHEMISTRY B/C Ratio 9 6 - 25 06/25/2012 Normal [facility] CHEMISTRY AST 8 unit/L 0 - 37 06/25/2012 Normal [facility] CHEMISTRY AGAP 9.2 meq/L 10.0 - 20.0 06/25/2012 LOW [facility] CHEMISTRY Globulin 4.2 g/dL 2.0 - 4.0 06/25/2012 HI [facility] CHEMISTRY A/G Ratio 0.9 0.7 - 1.6 06/25/2012 Normal [facility] CHEMISTRY Potassium Lvl 4.2 meq/L 3.5 - 5.1 06/25/2012 Normal [facility] CHEMISTRY Chloride Lvl 106 meq/L 95 - 109 06/25/2012 Normal [facility] CHEMISTRY CO2 26 meq/L 24 - 32 06/25/2012 Normal [facility] CHEMISTRY BUN 8 mg/dL 7 - 22 06/25/2012 Normal [facility] CHEMISTRY Glucose Lvl 93 mg/dL 70 - 99 06/25/2012 Normal 2Interpretive Data: Adult reference range values reflect the clinical guidelines of the [place] [employer]. [facility] CHEMISTRY Alk Phos 64 unit/L 39 - 136 06/25/2012 Normal [facility] CHEMISTRY Total Protein 7.8 g/dL 6.4 - 8.4 06/25/2012 Normal [facility] CHEMISTRY Creatinine Lvl 0.9 mg/dL 0.5 - 1.4 06/25/2012 Normal [facility] CHEMISTRY Sodium Lvl 137 meq/L 135 - 145 06/25/2012 Normal [facility] CHEMISTRY Calcium Lvl 8.5 mg/dL 8.5 - 10.5 06/25/2012 Normal [facility] CHEMISTRY Bili Total 0.3 mg/dL 0.2 - 1.3 06/25/2012 Normal [facility] CHEMISTRY Albumin Lvl 3.6 g/dL 3.5 - 5.0 06/25/2012 Normal [facility] CHEMISTRY ALT 14 unit/L 0 - 65 06/25/2012 Normal [facility] HEMATOLOGY Basophils # 0.2 K/CMM 0.0 - 0.2 06/25/2012 Normal [facility] HEMATOLOGY Eosinophils # 0.4 K/CMM 0.0 - 0.5 06/25/2012 Normal [facility] HEMATOLOGY Monocytes # 0.7 K/CMM 0.0 - 0.8 06/25/2012 Normal [facility] HEMATOLOGY Lymphocytes # 4.1 K/CMM 1.0 - 5.5 06/25/2012 Normal [facility] HEMATOLOGY Segs-Bands # 3.6 K/CMM 1.5 - 8.1 06/25/2012 Normal [facility] HEMATOLOGY Lymphocytes 45.5 % 20.0 - 40.0 06/25/2012 [facility] HEMATOLOGY Eosinophils 4.1 % 0.0 - 4.0 06/25/2012 [facility] HEMATOLOGY Monocytes 7.9 % 2.0 - 12.0 06/25/2012 Normal [facility] HEMATOLOGY Basophils 2.5 % 0.0 - 1.0 06/25/2012 [facility] HEMATOLOGY Segs 40.0 % 45.0 - 75.0 06/25/2012 LOW [facility] HEMATOLOGY WBC 9.0 K/CMM 3.7 - 10.4 06/25/2012 Normal [facility] HEMATOLOGY RBC 4.27 M/CMM 4.20 - 5.40 06/25/2012 Normal [facility] HEMATOLOGY MCHC 32.8 g/dL 32.0 - 36.0 06/25/2012 Normal [facility] HEMATOLOGY MCH 30.7 pg 27.0 - 31.0 06/25/2012 Normal [facility] HEMATOLOGY MCV 93.5 fL 81.0 - 99.0 06/25/2012 Normal [facility] HEMATOLOGY Hct 39.9 % 36.0 - 48.0 06/25/2012 Normal [facility] HEMATOLOGY Hgb 13.1 g/dL 12.0 - 16.0 06/25/2012 Normal [facility] HEMATOLOGY Platelet 245 K/CMM 133 - 450 06/25/2012 Normal [facility] HEMATOLOGY RDW 13.9 % 11.5 - 14.5 06/25/2012 Normal [facility] HEMATOLOGY MPV 9.1 fL 7.4 - 10.4 06/25/2012 Normal [facility] CHEMISTRY U Preg Negative (06/24/2012 17:47:00) Negative 06/24/2012 Normal [facility] URINALYSIS UA RBC None Seen (06/24/2012 17:47:00) 0 - 2 06/24/2012 Normal [facility] URINALYSIS UA Bacteria Few /HPF (06/24/2012 17:47:00) None Seen 06/24/2012 Normal [facility] URINALYSIS Micro? Performed (06/24/2012 17:47:00) 06/24/2012 Normal [facility] URINALYSIS UA Sq Epi Occasional /LPF (06/24/2012 17:47:00) Few 06/24/2012 Normal [facility] URINALYSIS UA WBC 11-20 /HPF *ABN* (06/24/2012 17:47:00) None Seen 06/24/2012 ABN [facility] URINALYSIS UA Leuk Est Moderate *ABN* (06/24/2012 17:47:00) Negative 06/24/2012 ABN [facility] URINALYSIS UA Blood Negative (06/24/2012 17:47:00) Negative 06/24/2012 Normal [facility] URINALYSIS UA Nitrite Negative (06/24/2012 17:47:00) Negative 06/24/2012 Normal [facility] URINALYSIS UA Urobilinogen 0.2 EU/dL 0.1 - 1.0 06/24/2012 Normal [facility] URINALYSIS UA Turbidity Slight Cloudy (06/24/2012 17:47:00) Clear 06/24/2012 Normal [facility] URINALYSIS UA Glucose Negative (06/24/2012 17:47:00) Negative 06/24/2012 Normal [facility] URINALYSIS UA Ketones Negative *NA* (06/24/2012 17:47:00) Negative 06/24/2012 NA [facility] URINALYSIS UA pH 6.0 5.0 - 8.0 06/24/2012 Normal [facility] URINALYSIS UA Protein Negative (06/24/2012 17:47:00) Negative 06/24/2012 Normal [facility] URINALYSIS UA Spec Grav 1.015 <=1.030 06/24/2012 Normal [facility] URINALYSIS UA Color Yellow *NA* (06/24/2012 17:47:00) Yellow 06/24/2012 NA [facility] URINALYSIS UA Bili Negative *NA* (06/24/2012 17:47:00) Negative 06/24/2012 NA [facility] Vital Signs Vital Sign Value Date Comments Source Weight 99.091 07/21/2012 [facility] Height 162.56 cm 07/21/2012 [facility] Weight 99.091 07/16/2012 [facility] Height 162.56 cm 07/16/2012 [facility] Height 165.10 cm 06/24/2012 [facility] Weight 100.000 06/24/2012 [facility] Encounters Location Location Details Encounter Type Encounter Number Reason For Visit Attending Provider ADM Date DC Date Status Source [facility] Emergency [id number] COLIN WEINER 06/24/2012 06/24/[address] [facility] Emergency [id number] CARRILLO ASH 07/16/2012 07/16/[address] [facility] Emergency [id number] DOMI FAYE 07/20/2012 07/21/2012 Active [facility] Departed Emergency Room [id number] ABIODUN KHOURY MD 09/22/2017 09/23/2017 [facility] Departed Emergency Room [id number] GLORIA OKEEFE MD 05/22/2018 05/23/2018 [facility] Departed Emergency Room [id number] IRINEO NUNEZ MD 06/11/2018 06/11/2018 [facility] Procedures Procedure Code Date Perfomer Comments Source
[2018-06-25] MEDS ORDERED: SODIUM CHLORIDE 0.9% 1000ML 1,000 ML IV STA (23:26)
[2018-06-25] MEDS ORDERED: ONDANSETRON HCL INJ 2 MG/ML VIAL IV STA (23:26)
[2018-06-25] MEDS ORDERED: MORPHINE SULFATE INJ 4 MG/ML INJ IV STA (23:26)
[2018-06-25] MEDS ORDERED: CITRATE OF MAGNESIA 300ML BOTTLE PO ONE (23:30)
[2018-06-25] MEDS ORDERED: LIDOCAINE JELLY 2% 10ML URO-JET TOP ONE (23:30)
[2018-06-26 00:16] LABS: BASOPHILS # (AUTO) 0.1 (0.0-0.1); BASOPHILS % 1.5 % (0.0-1.0); EOSINOPHILS # (AUTO) 0.2 (0.0-0.4); EOSINOPHILS % 4.4 % (0.0-6.0); HEMATOCRIT 35.8 % (34.2-44.1); HEMOGLOBIN 12.1 g/dL (12.0-16.0); LYMPHOCYTES # (AUTO) 2.1 (1.0-3.2); LYMPHOCYTES % 45.6 % (18.0-39.1); MEAN CORPUSCULAR HEMOGLOBIN 31.6 pg (28-32); MEAN CORPUSCULAR HGB CONC 33.8 g/dL (31-35); MEAN CORPUSCULAR VOLUME 93.5 fL (81-99); MONOCYTES # (AUTO) 0.4 (0.2-0.8); MONOCYTES % 8.8 % (4.4-11.3); NEUTROPHILS # (AUTO) 1.8 (2.1-6.9); NEUTROPHILS % 39.5 % (38.7-80.0); PLATELET COUNT 375 x10e3/uL (140-360); RED BLOOD COUNT 3.83 x10e6/uL (3.6-5.1); RED CELL DISTRIBUTION WIDTH 16.5 % (11.7-14.4)
[2018-06-26 00:32] LABS: INR 0.89; PROTHROMBIN TIME 12.9 seconds (11.9-14.5)
[2018-06-26 00:33] LABS: PARTIAL THROMBOPLASTIN TIME 31.9 seconds (23.8-35.5)
[2018-06-26 00:44] LABS: CLARITY,URINE CLOUDY (CLEAR); COLOR,URINE YELLOW (YELLOW); LEUKOCYTE ESTERASE ,URINE NEGATIVE (NEGATIVE); NITRITE,URINE NEGATIVE (NEGATIVE); PROTEIN,URINE DIPSTICK TRACE (NEGATIVE)
[2018-06-26 00:45] LABS: BILIRUBIN,URINE 2+ (NEGATIVE); KETONES,URINE TRACE (NEGATIVE); URINE UROBILINOGEN 1 mg/dL (0.2 - 1)
[2018-06-26 00:58] LABS: BACTERIA,URINE MANY /HPF; EPITHELIAL CELLS,URINE MANY /LPF; MUCUS,URINE MANY (RARE); RBC,URINE 0-5 /HPF (0-5); WBC,URINE (MAN) 0-5 /HPF (0-5)
--- NOTE | 2018-06-26 01:14 | Diagnostic Imaging Report ---
EXAM: ABDOMEN-1VIEW (KUB) DATE: 06/25/2018 11:29 PM INDICATION: Abdominal pain. COMPARISON: CT 05/22/2018. FINDINGS: LINES/TUBES: None BOWEL PATTERN: No evidence for obstruction. Gastric sleeve sutures with sutures extending above the GE junction. Moderate amount of stool in the colon and rectum. SOFT TISSUES: No abnormal calcifications. No mass effect. LUNG BASES: Not included BONES: No acute findings. IMPRESSION: Nonobstructive bowel gas pattern. Signed by: DR. Reji Gonzalez MD on 06/26/2018 1:11 AM
[2018-06-26 01:16] LABS: AMPHETAMINES SCREEN,URINE NEGATIVE (NEGATIVE); PHENCYCLIDINE SCREEN,URINE NEGATIVE (NEGATIVE)
[2018-06-26 01:17] LABS: BENZODIAZEPINES SCREEN,URINE NEGATIVE (NEGATIVE)
[2018-06-26 01:34] LABS: ALANINE AMINOTRANSFERASE 16 IU/L (0-55); ALBUMIN 3.9 g/dL (3.5-5.0); ALKALINE PHOSPHATASE 47 IU/L (40-150); AMYLASE 71 U/L (25-125); ANION GAP 19.7 mmol/L (8-16); BLOOD UREA NITROGEN 9 mg/dL (7-26); BUN/CREATININE RATIO 12 (6-25); CALCIUM 9.8 mg/dL (8.4-10.2); CARBON DIOXIDE 22 mmol/L (22-29); CHLORIDE 102 mmol/L (98-107); CREATININE, SERUM 0.75 mg/dL (0.57-1.11); EST GLOMERULAR FILTRATION RATE > 60 ML/MIN (60-); GLUCOSE 73 mg/dL (74-118); LIPASE 11 U/L (8-78); POTASSIUM 4.7 mmol/L (3.5-5.1); SODIUM 139 mmol/L (136-145)
== END 2018-06-26 01:30 | disposition left against medical advice (07) ==
LOC: ER 22:15
DX: K62.89 Other specified diseases of anus and rectum (principal)
CPT/HCPCS: 36415; 74018; 80053; 80307; 81001; 81025; 82150; 83690; 85025; 85610; 85730; 99282

== ENCOUNTER 2018-06-28 09:48 | Inpatient (IN) | payer MEDICARE ==
[~2018-06-28] VITALS: Ht 160 cm; Wt 65.5 kg
--- NOTE | 2018-06-28 10:04 | NUR ---
Pt called in the lobby. Pt noted to be walking around outside talking on phone.
[2018-06-28 11:25] LABS: EOSINOPHILS # (AUTO) 0.1 (0.0-0.4); EOSINOPHILS % 1.7 % (0.0-6.0); HEMATOCRIT 39.1 % (34.2-44.1); HEMOGLOBIN 12.7 g/dL (12.0-16.0); LYMPHOCYTES # (AUTO) 1.4 (1.0-3.2); LYMPHOCYTES % 33.9 % (18.0-39.1); MEAN CORPUSCULAR HEMOGLOBIN 30.8 pg (28-32); MEAN CORPUSCULAR HGB CONC 32.5 g/dL (31-35); MEAN CORPUSCULAR VOLUME 94.9 fL (81-99); MONOCYTES # (AUTO) 0.3 (0.2-0.8); MONOCYTES % 7.1 % (4.4-11.3); NEUTROPHILS # (AUTO) 2.3 (2.1-6.9); NEUTROPHILS % 56.1 % (38.7-80.0); PLATELET COUNT 352 x10e3/uL (140-360); RED BLOOD COUNT 4.12 x10e6/uL (3.6-5.1); RED CELL DISTRIBUTION WIDTH 16.2 % (11.7-14.4)
[2018-06-28] MEDS ORDERED: DIATRIZOATE MEGL/DIATRIZOA SOD 30 ML BTL PO ONE (11:33)
[2018-06-28 11:38] LABS: INR 1.01; PROTHROMBIN TIME 14.2 seconds (11.9-14.5)
[2018-06-28 11:39] LABS: PARTIAL THROMBOPLASTIN TIME 28.6 seconds (23.8-35.5)
[2018-06-28 11:45] LABS: ALANINE AMINOTRANSFERASE 17 IU/L (0-55); ALBUMIN 4.1 g/dL (3.5-5.0); ALKALINE PHOSPHATASE 52 IU/L (40-150); ANION GAP 22.3 mmol/L (8-16); BLOOD UREA NITROGEN 10 mg/dL (7-26); BUN/CREATININE RATIO 12 (6-25); CALCIUM 10.1 mg/dL (8.4-10.2); CARBON DIOXIDE 21 mmol/L (22-29); CHLORIDE 98 mmol/L (98-107); CREATININE, SERUM 0.84 mg/dL (0.57-1.11); EST GLOMERULAR FILTRATION RATE > 60 ML/MIN (60-); MAGNESIUM 2.2 MG/DL (1.3-2.1); POTASSIUM 3.3 mmol/L (3.5-5.1); SODIUM 138 mmol/L (136-145)
[2018-06-28 11:51] LABS: GLUCOSE 37 mg/dL (74-118)
--- NOTE | 2018-06-28 11:51 | NUR ---
ANDREW FROM LAB CALLED TO REPORT BLOOD GLUCOSE 37 MG/DL. INFORMED DR. ADAMS OF THIS.
[2018-06-28] MEDS ORDERED: DEXTROSE 50% SYRINGE 50 ML IV STA (11:52)
[2018-06-28] MEDS ORDERED: DEXTROSE 50% SYRINGE 50 ML IV ONE ×2 (11:55→14:39)
[2018-06-28] MEDS ORDERED: ONDANSETRON HCL INJ 2 MG/ML VIAL IV ONE (12:00)
[2018-06-28] MEDS ORDERED: ACETAMINOPHEN 1000 MG/100 ML IV ONE (12:00)
[2018-06-28] MEDS ORDERED: CARISOPRODOL350 MG PO (12:35)
[2018-06-28] MEDS ORDERED: TYLENOL # 31 EA PO (12:35)
[2018-06-28] MEDS ORDERED: KRISTALOSE20 GM PO (12:35)
[2018-06-28] MEDS ORDERED: LATUDA40 MG PO (12:35)
[2018-06-28] MEDS ORDERED: GABAPENTIN800 MG PO (12:35)
[2018-06-28] MEDS ORDERED: LIOTHYRONINE SO5 MCG PO (12:35)
[2018-06-28] MEDS ORDERED: TIZANIDINE HCL4 MG PO (12:35)
[2018-06-28] MEDS ORDERED: ONDANSETRON HCL4 MG PO (12:35)
[2018-06-28] MEDS ORDERED: CARAFATE1 GM/10 ML PO (12:35)
[2018-06-28] MEDS ORDERED: COLACE100 M1 PO (12:35)
[2018-06-28] MEDS ORDERED: MORPHINE SULFATE 2 MG/ML SYR IV NR (14:15)
[2018-06-28] MEDS ORDERED: MORPHINE SULFATE 2 MG/ML SYR IV PRN (14:15)
[2018-06-28] MEDS ORDERED: MORPHINE SULFATE INJ 4 MG/ML INJ ONE (14:16)
[2018-06-28] MEDS ORDERED: IOPAMIDOL 370 MG/ML 200 ML INFUS..BTL INJ ONE ×2 (14:20→19:37)
[2018-06-28] MEDS ORDERED: SODIUM CHLORIDE 0.9% 50ML 50 ML ONE ×2 (14:20→19:37)
--- NOTE | 2018-06-28 14:29 | Diagnostic Imaging Report ---
EXAMINATION: CT of the abdomen and pelvis with contrast. TECHNIQUE: Spiral CT images of the abdomen and pelvis were performed from the lung bases to the lesser trochanters after the intravenous administration of 100 cc of Isovue-370 and the oral administration of Gastrografin. Coronal and sagittal reformatted images were obtained. COMPARISON: CT abdomen and pelvis with contrast 05/22/2018 CLINICAL HISTORY:Lower abdominal pain, nausea, vomiting, constipation DISCUSSION: ABDOMEN/PELVIS: LOWER THORAX:Unremarkable. HEPATOBILIARY: Subcentimeter hypoattenuating lesion in segment 4A, too small to further characterize but likely to represent small cyst. 1.6 cm round lesion adjacent to the falciform ligament has average internal attenuation 0-5 Hounsfield units. Ill-defined [id number]-[id number] subcapsular lesion in segment 6 measures 2.5 cm, unchanged compared to prior exam. Radiodense material in the dependent portion of the gallbladder likely represents sludge. No wall thickening or pericholecystic inflammation. SPLEEN: No splenomegaly. PANCREAS: No focal masses or ductal dilatation. ADRENALS: No adrenal nodules. KIDNEYS/URETERS: No hydronephrosis, stones, or solid mass lesions. PELVIC ORGANS/BLADDER: Urinary bladder is unremarkable. Uterus is not identified and has presumably been removed. No adnexal mass. PERITONEUM/RETROPERITONEUM: No ascites. No pneumoperitoneum. LYMPH NODES: No pelvic sidewall, retroperitoneal, or mesenteric lymphadenopathy. VESSELS: Abdominal aorta, major branch vessels, and iliac arterial systems are patent. Hepatic arterial anatomy appears conventional. Portal vein, splenic vein, and central superior mesenteric vein are patent. GI TRACT: Large amount of fecal material within the rectum. The large bowel otherwise shows no evidence of distention or wall thickening though the majority of the descending colon is collapsed and poorly evaluated. The appendix is normal. Status post gastric sleeve operation with hiatal hernia notable for presence of the cranial portion of the suture line above the diaphragm. No small bowel dilatation to suggest obstruction. BONES AND SOFT TISSUE: Subcutaneous stranding along the left rectus abdominis muscle may reflect postsurgical change, unchanged compared prior. Otherwise no focal soft tissue abnormalities. No osseous destructive lesions. Degenerative disc changes and facet arthropathy of the lower lumbar spine. IMPRESSION: No acute intra-abdominal or pelvic CT abnormalities. Large amount of fecal material within the rectum in keeping with the provided clinical history of constipation. Probable gallbladder sludge without wall thickening or pericholecystic inflammation. Hiatal hernia containing a portion of gastric sleeve suture, unchanged. Unchanged indeterminate hypoattenuating lesion in the right hepatic lobe. As before, further evaluation with nonemergent MRI of the abdomen with and without contrast (liver mass protocol) is suggested. Low-attenuation lesion along the falciform ligament measures fluid attenuation on the current examination (previously fat attenuation). This may represent focal fatty infiltration or a cystic lesion. Above recommended MRI will be helpful in further characterization of this area as well. Signed by: Dr. Yovany Collado M.D. on 06/28/2018 2:25 PM
[2018-06-28] MEDS ORDERED: MORPHINE SULFATE INJ 4 MG/ML INJ IV ONE (14:45)
[2018-06-28] MEDS ORDERED: DEXTROSE 5% 1,000 ML IV ONE (14:45)
[2018-06-28] MEDS ORDERED: MORPHINE SULFATE INJ 4 MG/ML INJ IV PRN (14:45)
[2018-06-28] MEDS ORDERED: DEXTROSE 5%/0.9% SOD CHL 1,000 ML IV ONE (15:30)
[2018-06-28 15:36] LABS: BILIRUBIN,URINE 2+ (NEGATIVE); CLARITY,URINE CLEAR (CLEAR); COLOR,URINE YELLOW (YELLOW); KETONES,URINE 2+ (NEGATIVE); LEUKOCYTE ESTERASE ,URINE NEGATIVE (NEGATIVE); NITRITE,URINE NEGATIVE (NEGATIVE); PROTEIN,URINE DIPSTICK NEGATIVE (NEGATIVE); URINE UROBILINOGEN 0.2 mg/dL (0.2 - 1)
[2018-06-28 15:51] LABS: EPITHELIAL CELLS,URINE FEW /LPF; RBC,URINE 0-5 /HPF (0-5)
[2018-06-28] MEDS ORDERED: DEXTROSE 50% SYRINGE 50 ML IV PRN (17:45)
[2018-06-28] MEDS ORDERED: CITRATE OF MAGNESIA 300ML BOTTLE PO ONE (18:00)
[2018-06-28] MEDS ORDERED: DEXTROSE 10% 1,000 ML IV ONE (18:00)
[2018-06-28] MEDS ORDERED: LACTULOSE SYRUP 20 GM/30 ML UDC PO ONE (18:00)
--- NOTE | 2018-06-28 18:15 | NUR ---
GLUCOSE LEVEL REPORTED TO ER MD, WAS DIRECTED TO GIVE PATIENT FOOD AND REASSESS GLUCOSE. IV FLUIDS CHANGED TO D5/NS WITH 20 KCL AT 100 ML/HR ORDERED.
[2018-06-28] MEDS: ONDANSETRON HCL INJ 2 MG/ML VIAL IV PRN (18:37)
[2018-06-28] MEDS: D5NS/KCL 20MEQ 1,000 ML IV SCH (18:53)
--- NOTE | 2018-06-28 19:10 | NUR ---
DR ZHU AT BEDSIDE STATING THAT HE WILL ORDER THE PATIENT GO-LYTLY AND MAKE SEVERAL ADJUSTMENTS TO THE MEDICATION PLAN, SRINIVAS DOUGHERTY INFORMED OF THIS.
--- NOTE | 2018-06-28 19:43 | History and Physical ---
CHIEF COMPLAINT 1. Abdominal pain. 2. Nausea and vomiting. 3. Bleeding per rectum. 4. Hypoglycemia. HISTORY OF PRESENT ILLNESS: This is a 43-year-old female with past medical history of hypertension, chronic low back pain, chronic fatigue syndrome, fibromyalgia, neuropathy, who was in her usual state of health until the patient came to the emergency room with some bleeding per rectum, abdominal pain. Has some nausea, vomiting. Has some back pain. Has constipation. No hematemesis. The patient also has a lot of chronic back pain issue. No chest pain. No shortness of breath. No diarrhea, but has some constipation. No leg pain, no leg swelling. No seizures. No focal weakness. PAST MEDICAL HISTORY 1. Hypertension. 2. Backache. 3. Fibromyalgia. PAST SURGICAL HISTORY 1. History of hysterectomy. 2. Gastric sleeve surgery. 3. Incarcerated hernia surgery. FAMILY HISTORY: Father diagnosed with hypertension and heart disease. Mother with diabetes and hypertension. SOCIAL HISTORY: The patient smokes cigarette and no alcohol use. No illicit drug use. ALLERGIES: ALLERGIC TO TRAMADOL. MEDICATIONS: List attached. REVIEW OF SYSTEMS GENERAL: Generalized fatigue and weakness. HEENT: No diplopia. No blurring of vision. CARDIOPULMONARY: No chest pain. No shortness of breath. No cough. ALIMENTARY: As per HPI. GENITOURINARY: No dysuria or hematuria. MUSCULOSKELETAL: Has some joint pain and back pain. CENTRAL NERVOUS SYSTEM: No focal weakness or seizure. PHYSICAL EXAMINATION GENERAL: A 43-year-old female who is drowsy because of pain medicine. VITAL SIGNS: Temperature 97.3, pulse 95, respiratory rate 22, blood pressure 115/86. HEENT: Head is atraumatic and normocephalic. Pupils bilaterally equally reactive to light. Extraocular muscles intact. Mouth is dry. Tongue is dry. NECK: Supple. No JVD. No carotid bruit. SKIN: Dry. LUNGS: Clear to auscultation and percussion bilaterally. No added sound. HEART: S1 and S2. Regular rate and rhythm. No S3, S4 or murmur. ABDOMEN: Epigastric tenderness. Mild generalized tenderness. No guarding. No rigidity. EXTREMITIES: No clubbing, no cyanosis. No pedal edema. Peripheral pulses +1. CALL OR CONTACT CENTRE OPERATOR: Grossly nonfocal. LABS: White count 4.07, hemoglobin 12.7, hematocrit 39.1, platelet 352,000. Chemistry: Sodium 138, potassium 3.3, BUN is 10, creatinine 0.84, sugar 37. negative, hCG negative. LFT normal. Urine white count none. Stool occult blood positive. CT of abdomen shows no acute pathology, large amount of fecal material in rectum, gallbladder sludge, hiatal hernia, liver lesion. ASSESSMENT 1. Bleeding per rectum, rule out upper versus lower gastrointestinal bleed. 2. Constipation. 3. Chronic low back pain. 4. Chronic pain syndrome. 5. Fibromyalgia. 6. Chronic fatigue syndrome. 7. Hypertension. 8. Previous gastric surgery. 9. Hypoglycemia, rule out endocrine disorder. PLAN: Admit the patient to ICU. Blood sugar checkup q.2 h. D5 water with 20 of KCl at 100 mL per hour. Labs tomorrow morning. Endocrine consult Dr. Bird. GI consult, Dr. Roca. Protonix 40 IV q.12. Labs in the morning. Case discussed with the patient and ER doctor as well as ER nursing staff. Condition--prognosis is guarded. Keep monitoring blood sugar. Job#: [id number]
--- NOTE | 2018-06-28 22:36 | NUR ---
SPOKE TO MADALYN ESPINO NP ABOUT GIVING MORPHINE AND ZOFRAN DUE TO PATIENTS HEART RATE BEING IN THE HIGH 40'S. PATIENTS BLOOD PRESSURES ARE STABLE AND HAS BEEN SINCE ADMISSION HERE. PER WEAPONS ENGINEER [place] TO GIVE MORPHINE, WEAPONS ENGINEER WILL ADJUST ZOFRAN TO SOMETHING DIFFERENT
[2018-06-28] MEDS: MORPHINE SULFATE INJ 4 MG/ML INJ IV PRN (22:40)
[2018-06-28] MEDS ORDERED: PROMETHAZINE 12.5MG/ NACL 0.9% 12.5 MG/50 ML BAG IV ONE (22:45)
[2018-06-28] MEDS ORDERED: MINERAL OIL 132 ML BTL PR ONE ×2 (23:00→23:15)
--- NOTE | 2018-06-28 23:05 | NUR ---
PATIENT IRRATE THAT THIS NURSE DID NOT PUSH HER MORPHINE IV IN HER IV LOCK, PATIENT REQUESTED ME TO PUSH HER MORPHINE " FAST", THIS NURSE DENIED THAT REQUEST. PATIENT LATER COMPLAINED TO TECH ABOUT THIS, COMPRESSOR STATIONS SUPERINTENDENT AWARE, CHARGE NURSE AWARE
[2018-06-28] MEDS ORDERED: PEG (High)/E-LYTE SOLN 4,000 ML BTL PO ONE (23:15)
[2018-06-29] VITALS (24 sets, daily range): BP systolic 12–142; BP diastolic 53–111
[2018-06-29] MEDS ORDERED: SUCRALFATE 1 GM/10 ML SUSP PO SCH
--- NOTE | 2018-06-29 00:45 | Consultation ---
DATE OF CONSULTATION: June 28, 2018 GI CONSULT NOTE REFERRING PHYSICIAN: Dr. Aliza Jacinto REASON FOR CONSULTATION 1. Blood-tinged stool. 2. Fecal impaction. HISTORY OF PRESENT ILLNESS: A 43-year-old, Afro-E[place]ian female who is a patient of my associate, Dr. Roca. She has a history of obesity, status post gastric sleeve surgery earlier this year. She also has a history of hypertension, chronic low back pain, chronic fatigue syndrome, fibromyalgia, peripheral neuropathy. She came to the emergency room with lower abdominal discomfort for more than seven to eight days. She went to [facility] a couple of days ago. She was seen in the emergency room, has had some blood work and x-ray. She was discharged home. She is now coming to the [facility] with same complaint of lower abdominal discomfort associated with nausea. CT scan done in the emergency room showed fecal impaction in the rectum. She has had a colonoscopy within couple of years. As per the patient, there was no polyp removed. Colonoscopy was done within this area. She is not sure which hospital it was performed. REVIEW OF SYSTEMS: Twelve-point system reviewed. Symptomatology is limited to GI system. PAST MEDICAL HISTORY: Hypertension, backache, fibromyalgia, chronic low back pain. PAST SURGICAL HISTORY: Gastric sleeve surgery, hysterectomy, incarcerated hernia repair. FAMILY HISTORY: Negative for any GI or TRUCKER HAND malignancies. SOCIAL HISTORY: The patient is a chronic smoker. Seldom drinks alcohol. Never used any illicit drugs. ALLERGIES: TRAMADOL. HOME MEDICATIONS: Acetaminophen with codeine, albuterol inhaler, amlodipine, carisoprodol, Docusate 100 mg twice daily, gabapentin, lactulose, liothyronine, lurasidone, Zofran, sucralfate, tizanidine. INPATIENT MEDICATION: List reviewed. ALLERGIES: TRAMADOL. PHYSICAL EXAMINATION VITAL SIGNS: Temperature 98.8, pulse 47, respirations 18, blood pressure 140/98, oxygen saturation 100% on room air. GENERAL: Not in any acute distress. Oral mucosa is moist. Anicteric sclerae. NECK: No neck or axillary adenopathy. CVS: S1, S2 regular. LUNGS: Bilaterally grossly clear. ABDOMEN: Soft, lower quadrant tenderness on deep palpation without rebound, rigidity or guarding. Positive bowel sounds. Digital rectal examination showed impacted large amount of soft stool. No palpable mass. No external hemorrhoid hemorrhoids. Small internal hemorrhoids. EXTREMITIES: Warm. No leg edema. LABS: WBC 4.07, hemoglobin 12.7, hematocrit 39.1, MCV 94.9, platelet count 352,000. Sodium 138, potassium 3.3, chloride 98, bicarbonate 21, BUN 10 and creatinine 0.884. Liver enzymes normal. PT 14.2, INR 1.01, PTT of 28.6. Her urinalysis is negative. Stool occult blood is positive. CT of the abdomen and pelvis with contrast showed: 1. No acute intraabdominal or pelvic abnormalities. 2. A large amount of fecal material within the rectum in keeping with provided clinical history of constipation. Probable gallbladder sludge without wall thickening or pericholecystic inflammation. 3. Hiatal hernia containing a portion of gastric sleeve suture, unchanged. 4. Unchanged indeterminate hypoattenuating lesion in the right hepatic lobe. As before, further evaluation with nonemergent MRI of the abdomen with and without contrast, liver mass protocol, is suggested. 5. Low attenuation lesion along the falciform ligament measures fluid attenuation on current examination (previously fat attenuation). This may represent focal fatty infiltration or cystic lesion. Above recommended MRI will be helpful in further catheterization of this area as well. IMPRESSION: Patient's abdominal symptoms are due to constipation and fecal impaction. PLAN: Digital disimpaction was performed by me in the emergency room. Bowel regimen. Will give her GoLYTELY to flush out the retained stool. MRI of liver protocol to be performed for indeterminate liver lesion seen on CT exam. Discontinue outpatient medication which can cause constipation. I am taking the liberty to stop sucralfate which can cause severe constipation. I thank, Dr. Jacinto, for allowing me to participate in the care of this patient. Job#: [id number] [facility]
[2018-06-29] MEDS: ONDANSETRON HCL INJ 2 MG/ML VIAL IV PRN ×3 (01:37→17:29)
--- NOTE | 2018-06-29 02:27 | NUR ---
Patient drank 2 sips of GOlytely and then refused anymore. She said it made her feel wake to sick. Patient was given zofran before hand. I explained that she needs the Golytely for a possible EGD tomorrow and she still refused it still.
[2018-06-29] MEDS: D5NS/KCL 20MEQ 1,000 ML IV SCH ×2 (04:59→18:30)
--- NOTE | 2018-06-29 06:28 | NUR ---
Consult called to (directly) at this time.
[2018-06-29 07:30] LABS: BASOPHILS % 0.7 % (0.0-1.0); EOSINOPHILS # (AUTO) 0.2 (0.0-0.4); EOSINOPHILS % 4.4 % (0.0-6.0); HEMOGLOBIN 10.3 g/dL (12.0-16.0); LYMPHOCYTES # (AUTO) 1.8 (1.0-3.2); LYMPHOCYTES % 40.4 % (18.0-39.1); MEAN CORPUSCULAR HEMOGLOBIN 31.7 pg (28-32); MEAN CORPUSCULAR HGB CONC 33.2 g/dL (31-35); MEAN CORPUSCULAR VOLUME 95.4 fL (81-99); MONOCYTES # (AUTO) 0.5 (0.2-0.8); MONOCYTES % 10.7 % (4.4-11.3); NEUTROPHILS % 43.6 % (38.7-80.0); PLATELET COUNT 297 x10e3/uL (140-360); RED BLOOD COUNT 3.25 x10e6/uL (3.6-5.1)
[2018-06-29] MEDS: MORPHINE SULFATE INJ 4 MG/ML INJ IV PRN ×4 (07:47→21:10)
[2018-06-29 07:51] LABS: ALANINE AMINOTRANSFERASE 13 IU/L (0-55); ALBUMIN 2.9 g/dL (3.5-5.0); ALKALINE PHOSPHATASE 37 IU/L (40-150); ANION GAP 10.5 mmol/L (8-16); BLOOD UREA NITROGEN 5 mg/dL (7-26); BUN/CREATININE RATIO 7 (6-25); CALCIUM 8.7 mg/dL (8.4-10.2); CARBON DIOXIDE 28 mmol/L (22-29); CHLORIDE 104 mmol/L (98-107); CREATININE, SERUM 0.72 mg/dL (0.57-1.11); EST GLOMERULAR FILTRATION RATE > 60 ML/MIN (60-); GLUCOSE 86 mg/dL (74-118); POTASSIUM 3.5 mmol/L (3.5-5.1); SODIUM 139 mmol/L (136-145)
[2018-06-29] MEDS: DOCUSATE SODIUM 100 MG CAP PO SCH ×2 (08:08→17:08)
[2018-06-29] MEDS: PANTOPRAZOLE 40 MG 10ML VIAL IV SCH ×2 (08:08→17:08)
[2018-06-29] MEDS ORDERED: LIOTHYRONINE SODIUM 5 MCG TAB PO SCH (09:00)
[2018-06-29] MEDS ORDERED: AMLODIPINE BESYLATE 10 MG TAB PO SCH (09:00)
[2018-06-29] MEDS: ALBUTEROL SULFATE 2 MG TAB PO SCH ×2 (09:00→17:00)
[2018-06-29] MEDS: LACTULOSE SYRUP 20 GM/30 ML UDC PO SCH ×2 (09:00→17:09)
[2018-06-29] MEDS ORDERED: LACTULOSE 20 GM PO SCH (09:00)
[2018-06-29] MEDS: SOD PHOSPHATE/SOD BIPHOSPHATE ENEMA 132 ML BTL PR ONE ×2 (09:00→22:34)
--- NOTE | 2018-06-29 10:19 | Consultation ---
DATE OF CONSULTATION: PULMONARY CONSULTATION REASON FOR CONSULT: ICU management. CHIEF COMPLAINT: Abdominal pain, nausea and vomiting. HPI: Ms. Cee is a 43-year-old female with a history of hypertension, back pain, chronic fatigue syndrome, fibromyalgia, neuropathy, hypertension, cirrhosis of liver, COPD, presented with abdominal pain and rectal pain. The patient was found to be constipated. Dr. House evaluated the patient in the emergency room for fecal impaction. He performed digital disimpaction. She is denying any complaints of chest pain, nausea or vomiting. She is still having chest pain. She is having nausea and abdominal pain. REVIEW OF SYSTEMS GENERAL: Denies any fever or chills. HEENT: Head: Denies any head trauma. ENT: Denies any earache. CV: Denies any chest pain. RESPIRATORY: Denies any shortness of breath. GI: Denies any nausea other than constipation. The rest of the review of systems are negative except as in HPI PAST MEDICAL HISTORY: Hypertension, chronic fatigue syndrome, fibromyalgia, COPD, cirrhosis of liver, chronic pain medication used. PAST SURGICAL HISTORY: Gastric sleeve surgery, hysterectomy and incarcerated hernia surgery. FAMILY HISTORY: Father of hypertension. SOCIAL HISTORY: She smoked for the last 30 years 1 pack per day. She also smokes marijuana. Denies any alcohol use. Used to be a very heavy drinker. Does not drink anymore. PHYSICAL EXAMINATION VITAL SIGNS: Temperature 97.5, pulse of 60, blood pressure 106/67, respiratory rate of 18, O2 sat of 100%. HEENT: Head is atraumatic and normocephalic. NECK: Supple. CHEST: Clear to auscultation bilaterally. No wheezing. No crackles. HEART: S1 and S2 audible. ABDOMEN: Soft. EXTREMITIES: No clubbing, cyanosis or edema. NEUROLOGIC: Awake and alert. LABS: CT of the abdomen with large amount of fecal material in the rectum. Clinical history of constipation. Gallbladder sludge. White count of 4000, hemoglobin 10.3, and platelets 297,000. Chemistry is within normal limits. ASSESSMENT AND PLAN: Ms. Cee is a 43-year-old female who presented with nausea, fecal impaction and possibility of lower gastrointestinal bleed. CURRENT PROBLEMS 1. Possible lower GI bleed. 2. Fecal impaction. 3. Hypothyroidism. 4. Chronic fatigue syndrome. 5. Fibromyalgia. 6. History of smoking and reported history of COPD. PLAN 1. Continue the patient on IV hydration. 2. GI consult. 3. Will start the patient on nebulizer treatment as the patient has possible COPD. Thank you for this consult. Job#: [id number] JOE
[2018-06-29] MEDS ORDERED: GADOBENATE DIMEGLUMINE 1 ML IV ONE (10:22)
[2018-06-29] MEDS ORDERED: LORAZEPAM 1 MG TAB PO ONE (11:15)
[2018-06-29] MEDS ORDERED: LORAZEPAM 1 MG TAB ONE (11:19)
--- NOTE | 2018-06-29 12:16 | NUR ---
MRI abdomen completed, pt anxious during exam. called DR. House and ordered ativan po 1mg given. good effect. exam completed. vss.
[2018-06-29] MEDS: LEVALBUTEROL HCL SOLN NEBU 0.63 MG/3 ML NEB INH SCH ×2 (13:35→18:55)
--- NOTE | 2018-06-29 13:55 | Diagnostic Imaging Report ---
EXAMINATION: MRI Abdomen with and without contrast. TECHNIQUE: Axial T1 nonfat sat in and out of phase, axial T2 fat sat, coronal T2 nonfat sat, axial DWI and ADC MR images of the abdomen were obtained before and after the administration of 10 cc of gadolinium. Axial T1 fat sat GRE dynamic images in precontrast, arterial, venous and delayed phases were obtained. CLINICAL HISTORY:Abnormal finding on CT, hypoglycemia, lower GI bleeding COMPARISON: CT abdomen and pelvis 06/28/2018 and 05/22/2018 FINDINGS: LOWER THORAX: Unremarkable. LIVER: Normal hepatic size and contour.. No hepatic signal abnormality. * Ill-defined 1.7 x 1.3 cm T1 and T2 hyperintense rounded focal lesion at the falciform ligament (series 11, image 42), which show signal dropout on out of phase images and fat-suppressed images (series 11, image 41 and series 10, image 21), likely representing a combination of focal fatty infiltration and invagination of adjacent peritoneal fat. * Relatively well-circumscribed 1.4 x 1.8 cm peripherally located wedge-shaped T2 minimally hyperintense, T1 iso to slightly hypointense focal lesion in hepatic segment V (series 13, image 69) which does not show significant signal dropout on out of phase or fat-suppressed images. This is predominantly seen on the arterial phase and subtraction images (series 100, image 26), and is less conspicuous on portal venous and delayed phases, where it becomes mostly isointense. No mass effect. Normal vessels are noted coursing through this area. No restricted diffusion. * No other focal lesions. BILIARY: No ductal dilatation or filling defect. The gallbladder has a normal appearance. PANCREAS: No mass or ductal dilatation. SPLEEN: No splenomegaly. ADRENALS: No nodules. KIDNEYS: No hydronephrosis or solid enhancing mass in the imaged portion of the kidneys. PERITONEUM / RETROPERITONEUM: No upper abdominal free fluid. GI TRACT: Visualized bowel shows no dilation or obstruction. LYMPH NODES: No upper abdominal lymphadenopathy. VESSELS: The celiac trunk, superior and inferior mesenteric and bilateral renal arteries are patent. The portal, superior mesenteric and splenic veins are patent. No collateral circulation. BONES AND SOFT TISSUES: No abnormal bone marrow signal. No soft tissue abnormalities. IMPRESSION: 1. Ill-defined 1.7 cm rounded focal lesion of the falciform ligament shows evidence of microscopic and macroscopic fat, likely represents a combination of focal fatty infiltration and invagination of adjacent peritoneal fat. Lipoma or pseudo-lipoma of the Jacoby's capsule are less likely considerations. 2. A triangular-shaped T1 slightly hypointense lesion in the peripheral aspect of hepatic segment V shows no significant signal dropout on out of phase images or fat-suppressed images to consider fat. There are normal vessels running through this area without evidence of mass effect and no restricted diffusion to suggest a mass. There is slight delay in enhancement compared to the rest of the hepatic parenchyma, on arterial phase, however, equalizes in the rest of the dynamic study, without evidence of washout. Although this lesion remains indeterminate, this is likely of benign nature. Signed by: Dr. Jesús Hylton M.D. on 06/29/2018 1:52 PM
--- NOTE | 2018-06-29 14:12 | Consultation ---
DATE OF CONSULTATION: June 29, 2018 ENDOCRINE CONSULTATION Thank you very much for referring this patient. This is a 43-year-old black female who is referred to me for evaluation of hypoglycemia. Patient has had history of obesity. She underwent stomach stapling about 6 months back and has been having problem with extreme tiredness and came to the hospital with history of rectal bleed. On further evaluation at the time of admission, her blood sugar was found to be 37. Patient does not have history of diabetes in the past. There is no history of any other major endocrine problems in the past except she tells me she has hypothyroidism for which she was recently started on Cytomel. No history of any seizures. PHYSICAL EXAMINATION: GENERAL: The patient is alert, awake, a little bit apprehensive. NECK: Her thyroid is palpable one and a half times normal size. Clinically she looks near euthyroid. CHEST: Bilateral vesicular breathing. She has bilateral bronchospasm. The patient is a chronic smoker. CARDIAC: Both 1st and 2nd heart sounds. There is no 3rd or 4th heart sound. Ejection sound is grade 2/6. CLINICAL IMPRESSION: 1. Rectal bleeding. 2. Hypoglycemia. Rule out probably related to stomach stapling or maybe the bypass in the past. 3. History of hypothyroidism. 4. Chronic obstructive pulmonary disease. 5. Chronic smoker. PLAN: The plan at this time is to check her C-peptide levels. Will also do a hemoglobin A1c and thyroid function test and monitor her blood sugar every 4-6 hours. Thanks again for referring this patient. I will be following this patient with you. Job#: [id number]
[2018-06-29 14:19] LABS: FREE T4 (FREE THYROXINE) 0.95 ng/dL (0.9-1.8); THYROID STIMULATING HORMONE 1.943 uIU/mL (0.350-4.940)
--- NOTE | 2018-06-29 16:43 | NUR ---
Athlete Marketing Agent to bedside to discuss plan of care with patient/family. CM/SW role and care transitions discussed. Anticipated discharge plan discussed along with duration of care. CM/SW discussed patients right to make decisions in care. CM/SW work hours given. Patient lives: IN [place], [place] [address] HOME WITH Admit/Transfer: ED POA/Emergency contact: : RUBY ERIKA: [phone] Current/Previous Home Health: NONE PCP/Follow-up Care: DR. Reggie EASLEY Current/Previous DME: NONE AT THIS TIME Other Services: NONE Employment Status: UNEMPLOYED Areas of Concerns: NONE AT THIS TIME Referral Needs: NONE AT THIS TIME Education Needs: LOW BLOOD SUGAR SIGNS AND SYMPTOMS IMM/RILEY given and signed (if applicable): N/A Goal for discharge: PATIENT WOULD LIKE TO DISCHARGE HOME INDEPENDENTLY WITH NO NEEDS CM left business card at the bedside with contact information. Name and number was also written on the patients whiteboard. Patient verbalized understanding of discussion. CM will follow-up with ongoing discharge and transition of care needs.
--- NOTE | 2018-06-29 17:15 | NUR ---
patient c/o nausea - unable to give po viri at this time - medicated with IV zofran per prn orders
--- NOTE | 2018-06-29 20:37 | NUR ---
DR ZHU MAKING ROUNDS, NEW ORDERS RECEIVED
[2018-06-29] MEDS ORDERED: PEG (High)/E-LYTE SOLN 4,000 ML BTL PO ONE (20:45)
--- NOTE | 2018-06-29 20:52 | NUR ---
LOUD VOICES HEARD COMING FROM PATIENT ROOM, VISITORS AT BEDSIDE HAVING VERBAL ALTERCATION. PATIENT HR INCREASED TO 177. VISITORS ADVISED TO EITHER LOWER THEIR VOICES AND REFRAIN FROM UPSETTING PATIENT OR THEY WOULD HAVE TO LEAVE. VISITORS LEFT.
--- NOTE | 2018-06-29 21:09 | NUR ---
PATIENT CRYING, REQUESTS MEDICATION FOR HER NERVES, CALL PLACED FOR DR MICHELLE, AWAITING RETURN CALL
--- NOTE | 2018-06-29 21:44 | NUR ---
dr villanueva returned call, not his patient, call placed for Dr Rocío Kumari, awaiting return call
--- NOTE | 2018-06-29 21:50 | NUR ---
DR EASLEY RETURNED CALL, NEW ORDERS NOTED
[2018-06-29] MEDS ORDERED: LORAZEPAM 0.5 MG TAB PO ONE (22:00)
--- NOTE | 2018-06-29 22:00 | NUR ---
PATIENT REFUSES FLEETS ENEMA AT THIS TIME, WISHES TO LET HER NERVES "SETTLE SOME"
[2018-06-30] VITALS (22 sets, daily range): BP systolic 91–150; BP diastolic 51–90
--- NOTE | 2018-06-30 00:28 | Progress Note ---
DATE: June 29, 2018 SUBJECTIVE: Patient has had a good bowel movement with fleet enema yesterday. She drank some GoLYTELY. She has not had any bowel movement today. She reports improvement in abdominal discomfort. REVIEW OF SYSTEMS GENERAL: No fever or chills. RESPIRATORY: No cough or expectoration. CVS: No chest pain or palpitation. MEDICATIONS: Reviewed as per SEP. She has been given lactulose and GoLYTELY has been discontinued. PHYSICAL EXAMINATION VITAL SIGNS: Temperature 98.4, pulse 53, respirations 16, blood pressure 108/64, and oxygen saturation 100% on room air. GENERAL: Not in any acute distress. HEENT: Oral mucosa is moist. Anicteric sclerae. ABDOMEN: Soft. Mild lower quadrant tenderness without rebound, rigidity, or guarding. Positive bowel sounds. LABS: Hemoglobin dropped down from 12.7 to 10.3. IMAGING: MRI of the abdomen with contrast showed: 1. Ill-defined 1.7-cm round focal lesion around the falciform ligament. This is suggestive of lipoma or pseudolipoma. 2. Nonspecific hepatic lesion in segment 5. IMPRESSION 1. Severe constipation with fecal impaction; fecal impaction has resolved. 2. Nonspecific benign liver lesions. PLAN: Discontinue lactulose as patient does not like lactulose. Restart GoLYTELY, to drink slowly to flush out the retained stool. Minimize the use of opioids. Monitor for bowel movement. Dr. Roca will be available who is on-call and covering me on weekend. Job#: [id number]
[2018-06-30] MEDS: D5NS/KCL 20MEQ 1,000 ML IV SCH ×4 (00:46→21:18)
[2018-06-30] MEDS: LEVALBUTEROL HCL SOLN NEBU 0.63 MG/3 ML NEB INH SCH ×4 (02:00→19:35)
[2018-06-30 04:42] LABS: ANION GAP 12.5 mmol/L (8-16); BLOOD UREA NITROGEN < 5 mg/dL (7-26); CALCIUM 8.8 mg/dL (8.4-10.2); CARBON DIOXIDE 25 mmol/L (22-29); CHLORIDE 108 mmol/L (98-107); CREATININE, SERUM 0.64 mg/dL (0.57-1.11); EST GLOMERULAR FILTRATION RATE > 60 ML/MIN (60-); GLUCOSE 70 mg/dL (74-118); POTASSIUM 3.5 mmol/L (3.5-5.1); SODIUM 142 mmol/L (136-145)
[2018-06-30 05:16] LABS: BUN/CREATININE RATIO 8 (6-25)
[2018-06-30] MEDS: MORPHINE SULFATE INJ 4 MG/ML INJ IV PRN ×5 (05:22→21:17)
--- NOTE | 2018-06-30 05:24 | NUR ---
PATIENT AGAIN REFUSES FLEETS AT THIS TIME STATES SHE WANTS TO WAKE UP SOME FIRST
[2018-06-30] MEDS: LACTULOSE SYRUP 20 GM/30 ML UDC PO SCH ×2 (08:41→17:00)
[2018-06-30] MEDS: ONDANSETRON HCL INJ 2 MG/ML VIAL IV PRN ×3 (08:41→21:15)
[2018-06-30] MEDS: PANTOPRAZOLE 40 MG 10ML VIAL IV SCH ×2 (08:42→17:00)
[2018-06-30] MEDS: DOCUSATE SODIUM 100 MG CAP PO SCH ×2 (08:42→17:00)
[2018-06-30] MEDS: ALBUTEROL SULFATE 2 MG TAB PO SCH ×2 (09:00→17:00)
--- NOTE | 2018-06-30 14:13 | NUR ---
fleet enema given this morning (9am) with no results. pt refused enema last night per patient. encouraging her to continue drinking golytely. she is slow to drink it. vomiting after two bites of lunch today. zofran given. no BM today.
--- NOTE | 2018-06-30 17:24 | NUR ---
patient asking for pain medication every 3-4hours stating rectal pain from constipation. patient laying in bed watching television, conversing with myself. no distress observed at this time. patient states pain 8/10 on adult pain scale. pain medicated with morphine. instructed patient narcotics such as morphine will cause significant constipation increasing her pain. Discussed this side effect with each administration of morphine. patient verbalized understanding and agrees but wants to be medicated for pain.
--- NOTE | 2018-06-30 20:41 | NUR ---
REPORT GIVEN TO KALEIGH MILES, TRANSFERRED TO ROOM 115 PER W/C
--- NOTE | 2018-06-30 20:42 | NUR ---
RECEIVED PT TO UNIT ROOM 215 VIA WHEELCHAIR ACCOMPANIED BY ICU NURSE RUBY.PT AMBULATED TO BED FROM W/C WITHOUT ANY DIFFICULTY.PT IS AAO X 3.NO S/S OF DISTRESS NOTED.RESPIRATIONS EVEN/NON LABORED.PT HAS AN IV TO RIGHT HAND 24G INTACT AND PATENT.INSTRUCTED PT TO CALL FOR ASSISTANCE NEEDED.PT VERBALIZED UNDERSTANDING.BED IN LOWEST/LOCKED POSITION.CALL LIGHT WITHIN EASY REACH. Addendum: 07/01/18 at 2146 by Tania Sandoval RN ROOM 115
[2018-07-01] VITALS (7 sets, daily range): BP systolic 104–128; BP diastolic 54–74
[2018-07-01] MEDS: LEVALBUTEROL HCL SOLN NEBU 0.63 MG/3 ML NEB INH SCH ×4 (00:35→18:10)
[2018-07-01] MEDS: ONDANSETRON HCL INJ 2 MG/ML VIAL IV PRN ×6 (01:15→22:27)
[2018-07-01] MEDS: MORPHINE SULFATE INJ 4 MG/ML INJ IV PRN ×6 (01:17→22:29)
[2018-07-01] MEDS: D5NS/KCL 20MEQ 1,000 ML IV SCH ×2 (06:45→22:35)
--- NOTE | 2018-07-01 06:55 | NUR ---
Handoff report and walking rounds with outgoing fast food shift lead nurse. Pt AOx3, able to verbalize needs. NAD observed or reported. 24G to Wrist with IV fluids infusing at 100mL/hr.
[2018-07-01] MEDS: ALBUTEROL SULFATE 2 MG TAB PO SCH (09:00)
[2018-07-01] MEDS: LACTULOSE SYRUP 20 GM/30 ML UDC PO SCH ×2 (09:20→17:00)
[2018-07-01] MEDS: DOCUSATE SODIUM 100 MG CAP PO SCH ×2 (09:20→17:50)
[2018-07-01] MEDS: PANTOPRAZOLE 40 MG 10ML VIAL IV SCH ×2 (09:20→17:50)
[2018-07-01] MEDS ORDERED: CITRATE OF MAGNESIA 300ML BOTTLE PO ONE (10:45)
[2018-07-01] MEDS ORDERED: PEG (High)/E-LYTE SOLN 4,000 ML BTL PO ONE (10:50)
[2018-07-01] MEDS ORDERED: BISACODYL 5 MG TAB EC PO ONE (10:50)
--- NOTE | 2018-07-01 12:50 | Diagnostic Imaging Report ---
EXAM: Abdomen 1 Views INDICATION: ^CONSTIPATION ^[id number] ^1200 COMPARISON: CT abdomen and pelvis 06/28/2018 FINDINGS: Large amount of of stool and oral contrast in the colon. No dilated loops of small bowel. No renal calculi. No abnormal soft tissue masses. No degenerative changes in the lumbar spine and pelvis. IMPRESSION: 1. Radiographic findings consistent with constipation. 2. No bowel dilatation or obstruction. Signed by: Dr. Kathy Baldwin M.D. on 07/01/2018 12:46 PM
--- NOTE | 2018-07-01 15:00 | NUR ---
Pt not tolerating bowel prep d/t severe nausea/vomitting. Call placed to GI consult.
[2018-07-01] MEDS: PROMETHAZINE 25MG/ NS 50ML (IV) IV PRN (18:08)
--- NOTE | 2018-07-01 18:29 | NUR ---
Pt medicated for pain. Pt refusing GoLytely.
--- NOTE | 2018-07-01 18:59 | NUR ---
REPORT RECEIVED FROM OFFGOING NURSE.RECEIVED PT RESTING IN BED WITH NO S/S OF DISTRESS.RESPIRATIONS EVEN/NON LABORED.PT TO HAVE EGD/COLONOSCOPY TOMORROW.PT REFUSED GOLYTELY.PT HAD DULCOLAX AND MAG CITRATE.NO BM AT THIS TIME.INSTRUCTED PT TO CALL FOR ASSISTANCE NEEDED BY USING CALL LIGHT.PT VERBALIZED UNDERSTANDING.BED IN LOW/LOCKED POSITION.CALL LIGHT WITHIN EASY REACH.WILL CONTINUE TO MONITOR.
--- NOTE | 2018-07-01 18:59 | NUR ---
Handoff report given to oncoming slot shift supervisor nurse.
[2018-07-01] MEDS ORDERED: SOD PHOSPHATE/SOD BIPHOSPHATE ENEMA 132 ML BTL PR ONE ×2 (22:15→23:15)
--- NOTE | 2018-07-01 22:15 | NUR ---
[facility] AND SPOKE WITH DR TORREZ NOTIFIED THAT PT DID NOT HAVE A BM YET,AND THAT PT HAD REFUSED GOLYTELY THAT WAS ORDERED THIS AM.N/O'S RECEIVED.
[2018-07-02] VITALS (7 sets, daily range): BP systolic 103–126; BP diastolic 53–68
--- NOTE | 2018-07-02 00:18 | NUR ---
PT HAD LARGE SEMI SOLID BOWEL MOVEMENT.WILL CONTINUE TO MONITOR.
[2018-07-02] MEDS: LEVALBUTEROL HCL SOLN NEBU 0.63 MG/3 ML NEB INH SCH ×4 (00:20→19:33)
--- NOTE | 2018-07-02 00:32 | NUR ---
PT'S IV TO RIGHT HAND NOTED LEAKING,NEW 24G IV STARTED TO LEFT FA.
[2018-07-02] MEDS: ONDANSETRON HCL INJ 2 MG/ML VIAL IV PRN ×4 (02:27→20:41)
--- NOTE | 2018-07-02 02:27 | NUR ---
PT HAD ANOTHER LIQUID BM,NOT CLEAR AT THIS TIME.
[2018-07-02] MEDS: MORPHINE SULFATE INJ 4 MG/ML INJ IV PRN ×5 (02:29→20:41)
[2018-07-02] MEDS: D5NS/KCL 20MEQ 1,000 ML IV SCH ×3 (02:33→20:41)
[2018-07-02 05:54] LABS: EOSINOPHILS # (AUTO) 0.2 (0.0-0.4); EOSINOPHILS % 5.9 % (0.0-6.0); HEMOGLOBIN 9.8 g/dL (12.0-16.0); LYMPHOCYTES # (AUTO) 1.7 (1.0-3.2); LYMPHOCYTES % 56.7 % (18.0-39.1); MEAN CORPUSCULAR HGB CONC 33.8 g/dL (31-35); MEAN CORPUSCULAR VOLUME 94.8 fL (81-99); MONOCYTES # (AUTO) 0.4 (0.2-0.8); MONOCYTES % 12.5 % (4.4-11.3); NEUTROPHILS # (AUTO) 0.7 (2.1-6.9); NEUTROPHILS % 23.6 % (38.7-80.0); PLATELET COUNT 242 x10e3/uL (140-360); RED BLOOD COUNT 3.06 x10e6/uL (3.6-5.1); RED CELL DISTRIBUTION WIDTH 16.2 % (11.7-14.4)
--- NOTE | 2018-07-02 06:00 | NUR ---
PT'S LAST BM LIQUID WITH SOME SOLID PARTICLES.WILL CONTINUE TO MONITOR.
[2018-07-02 06:06] LABS: ALANINE AMINOTRANSFERASE 14 IU/L (0-55); ALBUMIN 2.6 g/dL (3.5-5.0); ALKALINE PHOSPHATASE 36 IU/L (40-150); ANION GAP 9.1 mmol/L (8-16); CALCIUM 8.8 mg/dL (8.4-10.2); CARBON DIOXIDE 27 mmol/L (22-29); CHLORIDE 111 mmol/L (98-107); EST GLOMERULAR FILTRATION RATE > 60 ML/MIN (60-); GLUCOSE 84 mg/dL (74-118); POTASSIUM 3.1 mmol/L (3.5-5.1); SODIUM 144 mmol/L (136-145)
[2018-07-02 06:10] LABS: BLOOD UREA NITROGEN < 5 mg/dL (7-26); BUN/CREATININE RATIO 7 (6-25)
[2018-07-02 07:03] LABS: BAND NEUTROPHILS % (MANUAL) 1 %; EOSINOPHILS % (MANUAL) 6 % (0-7); LYMPHOCYTES % (MANUAL) 18 % (19-48); MONOCYTES % (MANUAL) 12 % (3.4-9.0); NEUTROPHILS % (MANUAL) 62 % (40-74)
[2018-07-02 07:04] LABS: ANISOCYTOSIS SLIGHT; HYPOCHROMASIA SLIGHT; PLATELET ESTIMATE ADEQUATE; PLATELET MORPHOLOGY COMMENT NORMAL; RBC MORPHOLOGY COMMENT NORMAL
--- NOTE | 2018-07-02 07:15 | NUR ---
valentina august for clarification of gastro barium enema order .awaiting for call back
--- NOTE | 2018-07-02 07:34 | NUR ---
REPORT GIVEN TO ONCOMING NURSE,WALKING ROUNDS MADE.PT RESTING IN BED WITH NO S/S OF DISTRESS.
[2018-07-02] MEDS ORDERED: POTASSIUM CHLORIDE 20MEQ/100ML 200 ML IV ONE (08:15)
[2018-07-02] MEDS ORDERED: SODIUM CHLORIDE 0.9% 250ML 250 ML ONE (08:49)
[2018-07-02] MEDS: DOCUSATE SODIUM 100 MG CAP PO SCH ×2 (09:00→17:00)
[2018-07-02] MEDS: PANTOPRAZOLE 40 MG 10ML VIAL IV SCH ×2 (09:28→17:05)
[2018-07-02] MEDS: LACTULOSE SYRUP 20 GM/30 ML UDC PO SCH ×2 (09:28→17:00)
[2018-07-02] MEDS ORDERED: DIATRIZOATE MEGL/DIATRIZOA SOD 120 ML BTL PO ONE (13:17)
--- NOTE | 2018-07-02 13:20 | NUR ---
PT OFF UNIT FOR RADIOLOGY
--- NOTE | 2018-07-02 14:16 | NUR ---
PT BACK FROM RADIOLOGY AT THIS TIME
--- NOTE | 2018-07-02 15:16 | NUR ---
REPORT GIVEN TO HARI IN MED SURG 2. PT IS GOING TO ROOM 204
--- NOTE | 2018-07-02 15:29 | Diagnostic Imaging Report ---
PROCEDURE:X-RAY BARIUM ENEMA COMPARISON:[facility], CT, CT ABDOMEN/PELVIS W, 06/28/2018, 13:54. INDICATIONS:CONSTIPATION TECHNIQUE:A single contrast Gastrografin enema was performed in the usual manner. A total of 6 fluoroscopic images were taken and stored to the record. Muskrat Trapper film shows suture material in the left upper quadrant of the abdomen. Pelvic calcifications appear compatible with phleboliths. FINDINGS: COLON:No evidence of obstruction. No constricting lesions are seen. Scattered filling defects compatible with fecal material is present. Postevacuation upright image shows no free air. Moderate amount of contrast remains within the colon. Fluoroscopy time: 0.8 minutes Total dose: 45.25 mGy CONCLUSION:No obstructing or constricting lesions. Steve Gibson D.O. Dictated by: Steve Gibson D.O. on 07/02/2018 at 15:39 Electronically approved by: Steve Gibson D.O. on 07/02/2018 at 15:39
--- NOTE | 2018-07-02 15:30 | NUR ---
PT MOVED TO ROOM 204 AT THIS TIME VIA WHEEL CHAIR
--- NOTE | 2018-07-02 15:37 | NUR ---
Received patient from [facility] alert and responsive, remains NPO and patient aware, oriented to room and call light within reach, will monitor
--- NOTE | 2018-07-02 16:34 | NUR ---
Call to Dr. Garvin's service to report results of X-ray Barium Enema and waiting for call back
--- NOTE | 2018-07-02 16:55 | NUR ---
Nutrition Intervention Note RD Recommendation(s) for Physician: -Rec advancing to GI soft diet as medically appropriate -Rec Ensure Enlive BID to promote protein-calorie intake -Rec MVi with iron supplements -Encourage PO and hydration Plan of Care: RD following, monitoring for tolerance and adequacy Nutrition reason for involvement: Nutrition Risk Trigger MST RD Assessment 07/02 Chart reviewed. 43yo F, who is admitted for bleeding per rectum and abdominal pain. Visited pt in the room. Pt reports not being able to hold down any foods and drinks for months. Gastric sleeve was done on November 2017. Pt has had decreased PO intake and 205lbs weight loss since surgery. Pt reported nausea and meds were given. LBM 07/02, blood noted per pt. Barium enema today showed no obstructing or constricting lesions. Will continue to monitor and follow. Principal Problems/Diagnoses: 1.Possible lower GI bleed. 2.Hypokalemia 3. Fecal impaction, resolved. PMH: HTN, fibromyalgia, gastric sleeve on November 2017 GI: LBM - 07/02 after enema was given Skin: intact Labs: (07/02) K 3.1 L, BUN <5 L Meds: Zofran, KCl, lactulose, protonix Ht: 63in Wt: 125lb 06/28 BMI: 22.1kg/m2 IBW: 115lb Malnutrition Evaluation (07/02/18) Pt has had gastric surgery on Nov, 2017 with the intent to lose weight. Her weight before surgery was 330lbs and pt has lost 205lbs with decreased PO intake for 7 months. I dont think pt meet criteria for malnutrition at this time as her weight loss and decreased PO intake are consistent with the result of gastric sleeve. Energy intake: <50% of estimated energy requirements for >1 month Weight loss: >10% in 6 months (Chronic) due to gastric sleeve Fat loss: Moderate orbital region with dark [place] and somewhat hollow, loss of fat over triceps, protrusion of clavicle Muscle loss: Moderate protrusion of clavicle, depression of temporal region Supporting Evidence: Fluid accumulation: unable to evaluate Functional Status: no changes Current diet order: clear liquid Diet Adequacy: Not meeting calorie needs, Not meeting protein needs clear liquid diet Diet Education Needs Assessment: Diet education not indicated, patient is on clear liquid diet. Nutrition Care Level: moderate Nutrition Diagnosis: Inadequate oral intake related to gastric sleeve as evidenced by decreased PO intake and weight loss for the last 6 months. Goal: Patient will meet 75-100% of estimated needs by follow up Progress: N/A Interventions: Texture-modified diet, Commercial beverage, Multivitamin/mineral supplement therapy Monitoring/Evaluation: Total energy intake, Total protein intake, Modified diet, Liquid supplement, Weight change Signed: Xin Mayes MS, RD, LD
[2018-07-02] MEDS: PROMETHAZINE 25MG/ NS 50ML (IV) IV PRN (17:05)
--- NOTE | 2018-07-02 17:18 | NUR ---
Call back from Dr. Roca and orders to start patient on clear liquid diet, VSS, medicated for abdl pains and c/o nausea and medicated as ordered
--- NOTE | 2018-07-02 18:16 | NUR ---
Patient started on clear liquid and some nausea with meal, will monitor as already medicated for nausea but no vomiting
--- NOTE | 2018-07-02 19:15 | NUR ---
PATIENT RECEIVED. PATIENT RESTING IN BED, AAX3. RESP EVEN AND UNLABORED. NO ACUTE DISTRESS NOTED AT THIS TIME. CALL LIGHT WITHIN REACH. INSTRUCT TO CALL FOR ASSISTANCE. BED LOW/LOCKED. CONTINUE TO MONITOR CLOSELY
[2018-07-02] MEDS: ALBUTEROL SULFATE 2 MG TAB PO SCH (19:33)
[2018-07-03] VITALS (7 sets, daily range): BP systolic 92–138; BP diastolic 53–70
[2018-07-03] MEDS: LEVALBUTEROL HCL SOLN NEBU 0.63 MG/3 ML NEB INH SCH ×4 (01:05→19:45)
[2018-07-03] MEDS: MORPHINE SULFATE INJ 4 MG/ML INJ IV PRN ×5 (01:35→22:40)
[2018-07-03] MEDS: ONDANSETRON HCL INJ 2 MG/ML VIAL IV PRN ×2 (01:35→05:24)
[2018-07-03 04:46] LABS: BASOPHILS % 1.1 % (0.0-1.0); EOSINOPHILS # (AUTO) 0.3 (0.0-0.4); EOSINOPHILS % 7.3 % (0.0-6.0); HEMATOCRIT 29.8 % (34.2-44.1); HEMOGLOBIN 9.6 g/dL (12.0-16.0); LYMPHOCYTES # (AUTO) 2.2 (1.0-3.2); LYMPHOCYTES % 61.2 % (18.0-39.1); MEAN CORPUSCULAR HEMOGLOBIN 31.4 pg (28-32); MEAN CORPUSCULAR HGB CONC 32.2 g/dL (31-35); MEAN CORPUSCULAR VOLUME 97.4 fL (81-99); MONOCYTES # (AUTO) 0.5 (0.2-0.8); MONOCYTES % 12.6 % (4.4-11.3); NEUTROPHILS # (AUTO) 0.6 (2.1-6.9); NEUTROPHILS % 17.8 % (38.7-80.0); PLATELET COUNT 226 x10e3/uL (140-360); RED BLOOD COUNT 3.06 x10e6/uL (3.6-5.1); RED CELL DISTRIBUTION WIDTH 16.6 % (11.7-14.4)
[2018-07-03 05:05] LABS: ANION GAP 10.5 mmol/L (8-16); CALCIUM 8.5 mg/dL (8.4-10.2); CARBON DIOXIDE 22 mmol/L (22-29); CHLORIDE 111 mmol/L (98-107); EST GLOMERULAR FILTRATION RATE > 60 ML/MIN (60-); GLUCOSE 75 mg/dL (74-118); POTASSIUM 3.5 mmol/L (3.5-5.1); SODIUM 140 mmol/L (136-145)
[2018-07-03 05:25] LABS: BLOOD UREA NITROGEN < 2 mg/dL (7-26); BUN/CREATININE RATIO 3 (6-25)
--- NOTE | 2018-07-03 08:59 | NUR ---
Patient alert and responsive, no resp distress, VSS, pains well managed and no resp distress, still has some nausea but no vomiting with clear liquid diet, no BM yet but patient states feels like she wants to, IV fluids running and will monitor
[2018-07-03] MEDS: DOCUSATE SODIUM 100 MG CAP PO SCH ×2 (09:33→17:58)
[2018-07-03] MEDS: LACTULOSE SYRUP 20 GM/30 ML UDC PO SCH ×2 (09:33→17:58)
[2018-07-03] MEDS: PANTOPRAZOLE 40 MG 10ML VIAL IV SCH ×2 (09:33→17:58)
[2018-07-03] MEDS: D5NS/KCL 20MEQ 1,000 ML IV SCH ×2 (10:18→23:21)
[2018-07-03] MEDS: ALBUTEROL SULFATE 2 MG TAB PO SCH (13:47)
--- NOTE | 2018-07-03 15:44 | NUR ---
Call to Dr. Roca's office for updates and orders for patient's diet and waiting for call back.
--- NOTE | 2018-07-03 16:14 | NUR ---
Spoke with Dr. Roca and orders in place to start on GI soft diet, patient had a medium BM soft formed and will monitor
[2018-07-03] MEDS: PROMETHAZINE 25MG/ NS 50ML (IV) IV PRN ×2 (18:02→23:20)
--- NOTE | 2018-07-03 18:02 | NUR ---
Patient had dinner, GI soft diet and c/o nausea, medicated for that and then c/o abdl pains and medicated for that as ordered, will monitor
--- NOTE | 2018-07-03 20:30 | NUR ---
LEFT HAND IV INFILTRATED. D/C IV. START NEW IV TO RIGHT FOREARM 22G. PATIENT TOLERATED WELL. IV FLUID INFUSING
--- NOTE | 2018-07-03 22:30 | NUR ---
OBTAINED CONSENT FORM FOR EGD. EDUCATED PATIENT TO BE NPO AFTER MIDNIGHT. PATIENT VERBAL UNDERSTANDING
[2018-07-04] VITALS (9 sets, daily range): BP systolic 100–172; BP diastolic 56–80
[2018-07-04] MEDS: LEVALBUTEROL HCL SOLN NEBU 0.63 MG/3 ML NEB INH SCH ×4 (02:00→19:00)
[2018-07-04] MEDS: MORPHINE SULFATE INJ 4 MG/ML INJ IV PRN ×2 (04:31→08:45)
[2018-07-04] MEDS: PROMETHAZINE 25MG/ NS 50ML (IV) IV PRN ×2 (05:20→12:10)
[2018-07-04 05:25] LABS: ALANINE AMINOTRANSFERASE 12 IU/L (0-55); ALBUMIN 2.5 g/dL (3.5-5.0); ALBUMIN/GLOBULIN RATIO 1.1 (0.8-2.0); ALKALINE PHOSPHATASE 36 IU/L (40-150); ANION GAP 11.3 mmol/L (8-16); CALCIUM 8.5 mg/dL (8.4-10.2); CARBON DIOXIDE 22 mmol/L (22-29); CHLORIDE 111 mmol/L (98-107); CREATININE, SERUM 0.73 mg/dL (0.57-1.11); EST GLOMERULAR FILTRATION RATE > 60 ML/MIN (60-); GLUCOSE 81 mg/dL (74-118); POTASSIUM 3.3 mmol/L (3.5-5.1); SODIUM 141 mmol/L (136-145)
[2018-07-04 05:28] LABS: BLOOD UREA NITROGEN < 2 mg/dL (7-26); BUN/CREATININE RATIO 3 (6-25)
--- NOTE | 2018-07-04 07:52 | NUR ---
RECEIVED PATIENT IN BED. INTRAVENOUS FLUID ON GOING AT LEFT FOREARM. PATIENT IS ON NOTHING PER [facility] FOR PROCEDURE.
[2018-07-04] MEDS: D5NS/KCL 20MEQ 1,000 ML IV SCH ×2 (08:48→15:17)
[2018-07-04] MEDS: LACTULOSE SYRUP 20 GM/30 ML UDC PO SCH ×2 (09:00→16:37)
[2018-07-04] MEDS: DOCUSATE SODIUM 100 MG CAP PO SCH ×2 (09:00→16:37)
[2018-07-04] MEDS: ALBUTEROL SULFATE 2 MG TAB PO SCH ×3 (09:00→16:38)
[2018-07-04] MEDS: PANTOPRAZOLE 40 MG 10ML VIAL IV SCH (09:23)
--- NOTE | 2018-07-04 10:45 | NUR ---
PT WENT FOR PROCEDURE IN SAFE CONDITION
--- NOTE | 2018-07-04 11:35 | NUR ---
REPORT RECEIVED FROM RECOVERY NURSE YADIRA. PT IS ALERT, VITAL SIGNS WITHIN NORMAL.
[2018-07-04] MEDS ORDERED: ONDANSETRON HCL INJ 2 MG/ML VIAL ONE (11:39)
--- NOTE | 2018-07-04 11:40 | NUR ---
RECEIVED PT FROM RECOVERY ROOM. ALERT AND ORIENTED. PT IS NAUSEATED PRN MEDICATION GIVEN.
[2018-07-04] MEDS ORDERED: POTASSIUM CHLORIDE 10MEQ EA PO NR (13:15)
[2018-07-04] MEDS ORDERED: ACETAMINOPHEN/CODEINE 300MG - 30MG TAB PO PRN (13:15)
[2018-07-04] MEDS ORDERED: HYDROCODONE/APAP 5MG-325MG TAB PO PRN (13:30)
--- NOTE | 2018-07-04 13:30 | NUR ---
DR Rocío EASLEY CHANGED ALL IV MEDS AND STARTED WITH PO MEDS HE SAID PT CAN GO HOME ON TOMORROW
--- NOTE | 2018-07-04 17:16 | NUR ---
IMM letter delivered and explained to pt. She verbalized understanding. Signed copy placed in chart. Copy given to pt.
[2018-07-04] MEDS: ONDANSETRON HCL INJ 2 MG/ML VIAL IV PRN ×2 (17:31→21:30)
[2018-07-04] MEDS ORDERED: LIDOCAINE HCL 2% LOCAL INJ 5 ML SDV VIAL INJ ONE (17:41)
[2018-07-04] MEDS ORDERED: PROPOFOL IV EMULSION 10 MG/ML 20 ML VIAL ONE (17:41)
--- NOTE | 2018-07-04 18:44 | NUR ---
PATIENT IS ALERT SITTING ON THE BED. REPORT GIVEN TO ONGOING NURSE.
[2018-07-05] MEDS: LEVALBUTEROL HCL SOLN NEBU 0.63 MG/3 ML NEB INH SCH ×2 (00:21→07:00)
[2018-07-05 00:28] VITALS: BP 164/113
[2018-07-05] MEDS: ONDANSETRON HCL INJ 2 MG/ML VIAL IV PRN ×2 (01:20→06:00)
[2018-07-05 05:29] VITALS: BP 146/73
[2018-07-05] MEDS: D5NS/KCL 20MEQ 1,000 ML IV SCH (06:12)
--- NOTE | 2018-07-05 07:10 | NUR ---
RCD PT AT BED PT IS ALERT AND ORIENTED PT RESTING ON BED NO SIGNS OF ANY DISTRESS NOTED IV PATENT BED LOW AND LOCKED CALL LIGHT IN REACH
[2018-07-05 07:25] LABS: BASOPHILS % 0.8 % (0.0-1.0); EOSINOPHILS % 0.4 % (0.0-6.0); HEMATOCRIT 35.8 % (34.2-44.1); HEMOGLOBIN 11.8 g/dL (12.0-16.0); LYMPHOCYTES # (AUTO) 0.6 (1.0-3.2); LYMPHOCYTES % 25.1 % (18.0-39.1); MEAN CORPUSCULAR HEMOGLOBIN 31.1 pg (28-32); MEAN CORPUSCULAR VOLUME 94.2 fL (81-99); MONOCYTES # (AUTO) 0.1 (0.2-0.8); MONOCYTES % 4.4 % (4.4-11.3); NEUTROPHILS # (AUTO) 1.7 (2.1-6.9); NEUTROPHILS % 69.3 % (38.7-80.0); PLATELET COUNT 241 x10e3/uL (140-360)
[2018-07-05 07:43] LABS: ANION GAP 16.7 mmol/L (8-16); CALCIUM 9.4 mg/dL (8.4-10.2); CARBON DIOXIDE 19 mmol/L (22-29); CHLORIDE 103 mmol/L (98-107); CREATININE, SERUM 0.73 mg/dL (0.57-1.11); EST GLOMERULAR FILTRATION RATE > 60 ML/MIN (60-); GLUCOSE 143 mg/dL (74-118); POTASSIUM 3.7 mmol/L (3.5-5.1); SODIUM 135 mmol/L (136-145)
[2018-07-05 07:45] VITALS: BP 146/73
[2018-07-05 07:46] LABS: BLOOD UREA NITROGEN < 5 mg/dL (7-26); BUN/CREATININE RATIO 7 (6-25)
[2018-07-05 08:05] VITALS: BP 158/82
[2018-07-05] MEDS ORDERED: ZOFRAN4 MG PO (08:32)
[2018-07-05] MEDS ORDERED: PANTOPRAZOLE SO40 MG PO (08:32)
[2018-07-05] MEDS: LACTULOSE SYRUP 20 GM/30 ML UDC PO SCH (08:34)
[2018-07-05] MEDS: DOCUSATE SODIUM 100 MG CAP PO SCH (08:34)
--- NOTE | 2018-07-05 10:20 | NUR ---
PT WENT HOME IN SAFE CONDITION WITH HER DAUGHTER
== END 2018-07-05 10:20 | disposition home or self-care (01) | DRG 392 ==
LOC: ER 09:48 → ERHOLD 14:13 → OBSVTOIN 14:13 → ICU 23:45 → MED/SURG 06-30 20:40 → MED/SURG2 07-02 15:27
PROVIDERS: ADMIT Internal Medicine; ATTEND Internal Medicine
DX: K59.00 Constipation, unspecified (principal); K92.1 Melena; E89.89 Other postprocedural endocrine and metabolic complications and disorders; E16.2 Hypoglycemia, unspecified; I10 Essential (primary) hypertension; M79.7 Fibromyalgia; G89.4 Chronic pain syndrome; G62.9 Polyneuropathy, unspecified; K74.60 Unspecified cirrhosis of liver; F17.210 Nicotine dependence, cigarettes, uncomplicated; J44.9 Chronic obstructive pulmonary disease, unspecified; Z98.84 Bariatric surgery status; E03.9 Hypothyroidism, unspecified; R53.82 Chronic fatigue, unspecified; F12.10 Cannabis abuse, uncomplicated
CPT/HCPCS: 36415; 43239; 74018; 74177; 74183; 74270; 80048; 80053; 81001; 82024; 82270; 82533; 82948; 83036; 83525; 83605; 83735; 84439; 84443; 84481; 84681; 84702; 85025; 85610; 85730; 86850; 86900; 87040; 88305; 88312; 93005; 94640; 96361; 99284; J2001; J2270; J2405; J2550; J3480; J7042; J7050; J7070; J7799; Q9963; Q9967

== ENCOUNTER 2018-08-27 11:18 | Emergency (ER) | payer MEDICARE ==
[~2018-08-27] VITALS: Ht 160 cm; Wt 53.1 kg
[~2018-08-27 11:18] MED LIST changes: +CARAFATE1 GM/10 ML PO; +CARISOPRODOL350 MG PO; +COLACE100 M1 PO; +GABAPENTIN800 MG PO; +KRISTALOSE20 GM PO; +LATUDA40 MG PO; +LIOTHYRONINE SO5 MCG PO; +ONDANSETRON HCL4 MG PO; +PANTOPRAZOLE SO40 MG PO; +TIZANIDINE HCL4 MG PO; +TYLENOL # 31 EA PO; +ZOFRAN4 MG PO
--- OUTSIDE RECORDS SUMMARY | 2018-08-27 11:21 | XMS REPORT | Continuity of Care Document ---
Author Author [facility] Interface Address Unknown Phone Unavailable Problems Problem Status Onset Date Classification Date Reported Comments Source LWBS Active 07/20/2012 [facility] BOIL RIGHT ARMPIT, STOMACH PAIN Active 07/16/2012 [facility] ABDOMINAL/BACK PAIN Active 06/24/2012 [facility] Diabetes mellitus type 2 Active Problem 07/23/2012 [facility] Hypertension Active Problem 07/23/2012 [facility] Ulcer<sup>1</sup> Active Problem 07/23/2012 1gastric ulcer [facility] Hypoglycemia Active Problem 07/05/2018 [facility] LGI bleed Active Problem 07/05/2018 [facility] Medications Medication Details Route Status Patient Instructions Ordering Provider Order Date Source [place] 5/325 oral tablet 1-2 tab, PO, Q4-6H, PRN, 15 tab, Pain, Substitution Allowed, Maintenance PO Active [facility] 07/17/2012 [facility] clindamycin 300 mg oral capsule 300 mg, 1 cap, PO, QID, 28 cap, Substitution Allowed PO Active [facility] 07/17/2012 [facility] acetaminophen-hydrocodone 325 mg-5 mg oral tablet 1 tab, Route: PO, Dosing Weight 99.091, kg, ONCE, STAT, Start date: 07/16/12 18:33:00, Stop date: 07/16/12 18:33:00 PO No Longer Active [facility] 07/17/2012 [facility] Cipro 500 mg oral tablet 500 mg, 1 tab, PO, Q12H, 10 tab, Substitution Allowed, TAB PO Active 06/25/2012 [facility] Protonix 20 mg oral enteric coated tablet 40 mg, 2 tab, PO, Daily, 60 tab, Substitution Allowed, ECTAB PO Active 06/25/2012 [facility] Cipro 500 mg oral tablet 500 mg, 1 tab, PO, Q12H, 6 tab, Substitution Allowed, TAB PO No Longer Active 06/25/2012 [facility] metFORmin 500 mg oral tablet 500 mg, 1 tab, PO, BID, 30 tab, Substitution Allowed PO Active 06/25/2012 [facility] diclofenac sodium 75 mg oral enteric coated tablet 75 mg, 1 tab, PO, BID, 60 tab, Substitution Allowed, ECTAB PO Active 06/25/2012 [facility] Flexeril 10 mg oral tablet 10 mg, 1 tab, PO, Daily, PRN, 30 tab, for spasm, Substitution Allowed, TAB PO Active 06/25/2012 [facility] Advil 200 mg oral tablet 400 mg, 2 tab, PO, Q4H, PRN, 120 tab, Pain, Substitution Allowed, TAB PO Active 06/25/2012 [facility] Maalox 30 mL, Route: PO, Drug Form: SUSP, Dosing Weight 100, kg, ONCE, Start date: 06/24/12 18:46:00, Stop date: 06/24/12 18:46:00 PO No Longer Active [facility] 06/25/2012 [facility] Xylocaine Viscous 2% mucous membrane solution 30 mL, Route: PO, Drug Form: SOLN, Dosing Weight 100, kg, ONCE, Start date: 06/24/12 18:46:00, Stop date: 06/24/12 18:46:00 PO No Longer Active [facility] 06/25/2012 [facility] Protonix 40 mg, 1 tab, Route: PO, Drug form: ECTAB, ONCE, Dosing Weight 100, kg, Priority: STAT, Start date: 06/24/12 18:44:00, Stop date: 06/24/12 18:44:00 PO No Longer Active [facility] 06/25/2012 [facility] morphine Sulfate 4 mg, 1 mL, Route: IVP, Drug form: INJ, ONCE, Dosing Weight 100, kg, Priority: STAT, Start date: 06/24/12 17:16:00, Stop date: 06/24/12 17:16:00 IVP No Longer Active [facility] 06/24/2012 [facility] Zofran 4 mg, 2 mL, Route: IVP, Drug form: INJ, ONCE, Dosing Weight 100, kg, Priority: STAT, Start date: 06/24/12 17:16:00, Stop date: 06/24/12 17:16:00 IVP No Longer Active [facility] 06/24/2012 [facility] NS (Bolus) IV 1,000 mL, 1000 ml/hr, Route: IV, Drug Form: INJ, Dosing Weight 100, kg, ONCE, STAT, Start date: 06/24/12 17:16:00, Duration: 1 doses or times, Stop date: 06/24/12 17:16:00 IV No Longer Active [facility] 06/24/2012 [facility] Albuterol Sulfate 2 Mg Tablet Twice A Day Active [facility] Amlodipine Besylate 10 Mg Tablet Twice A Day Active [facility] Albuterol Sulfate 2 Mg Tablet Twice A Day Active [facility] Amlodipine Besylate 10 Mg Tablet Twice A Day Active [facility] Acetaminophen/Codeine Phosphate (Tylenol # 3*) 1 Ea Tab Every 6 Hours as needed for Pain Active [facility] Carisoprodol 350 Mg Tablet Three Times A Day Active [facility] Docusate Sodium (Colace) 100 Mg Capsule Twice A Day Active [facility] Gabapentin 800 Mg Tablet Three Times A Day Active [facility] Lactulose (Kristalose) 20 Gm Packet Twice A Day Active [facility] Liothyronine Sodium 5 Mcg Tablet Daily Active [facility] Lurasidone Hcl (Latuda) 40 Mg Tablet Daily Active [facility] Ondansetron Hcl 4 Mg Tablet Every 4 Hours as needed for Nausea And Vomiting Active [facility] Ondansetron Hcl (Zofran*) 4 Mg Tablet Every 8 Hours Active [facility] Pantoprazole Sodium (Protonix) 40 Mg Tablet.dr Twice A Day Active [facility] Sucralfate (Carafate) 1 Gm/10 Ml Oral.susp Every 6 Hours Active [facility] Tizanidine Hcl 4 Mg Tablet Bedtime Active [facility] Allergies, Adverse Reactions, Alerts Substance Category Reaction Severity Reaction type Status Date Reported Comments Source Tramadol RASH Intermediate Allergy to Substance Active 06/28/2018 [facility] Immunizations Immunization Date Given Site Status Last Updated Comments Source Results Order Name Results Value Reference Range Date Interpretation Comments Source Blood leukocytes automated count (number/volume) 2.51 4.8 - 10.8 07/05/2018 [facility] Blood erythrocytes automated count (number/volume) 3.80 3.6 - 5.1 07/05/2018 [facility] Blood hemoglobin measurement (moles/volume) 11.8 12.0 - 16.0 07/05/2018 [facility] Automated blood hematocrit (volume fraction) 35.8 34.2 - 44.1 07/05/2018 [facility] Automated erythrocyte mean corpuscular volume 94.2 81 - 99 07/05/2018 [facility] Automated erythrocyte mean corpuscular hemoglobin (mass per erythrocyte) 31.1 28 - 32 07/05/2018 [facility] Automated erythrocyte mean corpuscular hemoglobin concentration measurement (mass/volume) 33.0 31 - 35 07/05/2018 [facility] RDW BldCo-Rto 16.0 11.7 - 14.4 07/05/2018 [facility] Automated blood platelet count (count/volume) 241 140 - 360 07/05/2018 [facility] Automated blood segmented neutrophil count as percentage of total leukocytes 69.3 38.7 - 80.0 07/05/2018 [facility] Automated blood lymphocyte count as percentage ot total leukocytes 25.1 18.0 - 39.1 07/05/2018 [facility] Automated blood monocyte count as percentage of total leukocytes 4.4 4.4 - 11.3 07/05/2018 [facility] Automated blood eosinophil count as percentage of total leukocytes 0.4 0.0 - 6.0 07/05/2018 [facility] Automated blood basophil count as percentage of total leukocytes 0.8 0.0 - 1.0 07/05/2018 [facility] IM GRANULOCYTES % 0.0 0.0 - 1.0 07/05/2018 [facility] Automated blood neutrophil count 1.7 2.1 - 6.9 07/05/2018 [facility] Blood lymphocytes count (number/volume) 0.6 1.0 - 3.2 07/05/2018 [facility] Blood monocytes automated count (number/volume) 0.1 0.2 - 0.8 07/05/2018 [facility] Automated blood eosinophil count 0.0 0.0 - 0.4 07/05/2018 [facility] Automated blood basophil count (count/volume) 0.0 0.0 - 0.1 07/05/2018 [facility] Absolute Immature Granulocyte (auto 0 0 - 0.1 07/05/2018 [facility] Serum or plasma sodium measurement (moles/volume) 135 136 - 145 07/05/2018 [facility] Serum or plasma potassium measurement (moles/volume) 3.7 3.5 - 5.1 07/05/2018 [facility] Serum or plasma chloride measurement (moles/volume) 103 98 - 107 07/05/2018 [facility] Serum or plasma carbon dioxide, total measurement (moles/volume) 19 22 - 29 07/05/2018 [facility] Serum or plasma anion gap 16.7 8 - 16 07/05/2018 [facility] Serum or plasma urea nitrogen measurement (mass/volume) < 5 7 - 26 07/05/2018 [facility] Serum or plasma creatinine measurement (mass/volume) 0.73 0.57 - 1.11 07/05/2018 [facility] Serum or plasma urea nitrogen/creatinine mass ratio 7 6 - 25 07/05/2018 [facility] Estimated glomerular filtration rate (GFR) determination > 60 60 07/05/2018 [facility] Glucose measurement 143 74 - 118 07/05/2018 [facility] Serum or plasma calcium measurement (mass/volume) 9.4 8.4 - 10.2 07/05/2018 [facility] Capillary blood glucose measurement by glucometer (mass/volume) 140 70 - 120 07/05/2018 [facility] Serum or plasma total bilirubin measurement (mass/volume) 0.4 0.2 - 1.2 07/04/2018 [facility] Aspartate Amino Transf (AST/SGOT) 12 5 - 34 07/04/2018 [facility] Serum or plasma alanine aminotransferase measurement (enzymatic activity/volume) 12 0 - 55 07/04/2018 [facility] Serum or plasma protein measurement (mass/volume) 4.7 6.5 - 8.1 07/04/2018 [facility] Serum or plasma albumin measurement (mass/volume) 2.5 3.5 - 5.0 07/04/2018 [facility] Plasma globulin measurement (mass/volume) 2.2 2.3 - 3.5 07/04/2018 [facility] Serum or plasma albumin/globulin mass ratio 1.1 0.8 - 2.0 07/04/2018 [facility] Serum or plasma alkaline phosphatase measurement (enzymatic activity/volume) 36 40 - 150 07/04/2018 [facility] Differential Total Cells Counted 100 07/02/2018 [facility] Manual blood neutrophils/100 leukocytes 62 40 - 74 07/02/2018 [facility] Manual blood band neutrophils form/100 leukocytes 1 07/02/2018 [facility] Manual blood lymphocytes/100 leukocytes 18 19 - 48 07/02/2018 [facility] Manual blood monocytes/100 leukocytes 12 3.4 - 9.0 07/02/2018 [facility] Manual blood eosinophil count as percentage of total leukocytes 6 0 - 7 07/02/2018 [facility] Manual basophil percentage 1 0 - 1.5 07/02/2018 [facility] Blood platelets count by estimate (number/volume) ADEQUATE 07/02/2018 [facility] Platelet morphology NORMAL 07/02/2018 [facility] Blood hypochromia detection by light microscopy SLIGHT 07/02/2018 [facility] Blood anisocytosis detection by light microscopy SLIGHT 07/02/2018 [facility] RBC morphology NORMAL 07/02/2018 [facility] Serum or plasma C peptide measurement (mass/volume) 1.1 1.1 - 4.4 06/30/2018 [facility] Serum or plasma thyroxine (T4) free measurement (mass/volume) 0.95 0.9 - 1.8 06/29/2018 [facility] Serum or plasma thyrotropin measurement by detection limit <=0.005 miu/l (units/volume) 1.943 0.350 - 4.940 06/29/2018 [facility] Plasma corticotropin measurement (mass/volume) 9.0 7.2 - 63.3 06/29/2018 [facility] Serum or plasma triiodothyronine (T3) free measurement (mass/volume) 2.0 2.0 - 4.4 06/29/2018 [facility] Serum or plasma cortisol measurement (mass/volume) 7.5 06/29/2018 [facility] Serum or plasma insulin measurement (units/volume) 4.9 2.6 - 24.9 06/28/2018 [facility] Urine color determination YELLOW YELLOW 06/28/2018 [facility] Urine clarity CLEAR CLEAR 06/28/2018 [facility] Specific gravity of Urine by Test strip 1.015 1.010 - 1.025 06/28/2018 [facility] Urine pH measurement by automated test strip 6 5 - 7 06/28/2018 [facility] Urine leukocyte esterase detection by dipstick NEGATIVE NEGATIVE 06/28/2018 [facility] Urine nitrite detection NEGATIVE NEGATIVE 06/28/2018 [facility] Urine protein measurement by test strip (mass/volume) NEGATIVE NEGATIVE 06/28/2018 [facility] Urine glucose detection 2+ NEGATIVE 06/28/2018 [facility] Urine ketones detection by automated test strip 2+ NEGATIVE 06/28/2018 [facility] Urine urobilinogen measurement by test strip (mass/volume) 0.2 0.2 - 1 06/28/2018 [facility] Urine total bilirubin measurement (mass/volume) 2+ NEGATIVE 06/28/2018 [facility] Urine erythrocytes detection NEGATIVE NEGATIVE 06/28/2018 [facility] Automated urine sediment leukocyte count by microscopy (number/high power field) NONE 0 - 5 06/28/2018 [facility] Erythrocytes detection in urine sediment by light microscopy 0-5 0 - 5 06/28/2018 [facility] Bacteria detection in urine sediment by light microscopy NONE NONE 06/28/2018 [facility] Epithelial cells detection in urine sediment by light microscopy FEW NONE 06/28/2018 [facility] Lactic Acid Level 9.0 4.5 - 19.8 06/28/2018 [facility] Blood culture NO GROWTH AFTER 5 DAYS, FINAL REPORT 06/28/2018 [facility] Hemoglobin A1c Percent 4.1 4.0 - 7.0 06/28/2018 [facility] Serum or plasma choriogonadotropin ( test) detection NEGATIVE NEGATIVE 06/28/2018 [facility] Prothrombin time (PT) in platelet poor plasma by coagulation assay 14.2 11.9 - 14.5 06/28/2018 [facility] INR in Platelet poor plasma by Coagulation assay 1.01 06/28/2018 [facility] Activated partial thromboplastin time (aPTT) in platelet poor plasma bycoagulation assay 28.6 23.8 - 35.5 06/28/2018 [facility] Serum or plasma magnesium measurement (mass/volume) 2.2 1.3 - 2.1 06/28/2018 [facility] Stool gastrointestinal hemoglobin detection POSITIVE NEGATIVE 06/28/2018 [facility] Urine opiates screening test POSITIVE NEGATIVE 06/26/2018 [facility] Barbiturates screen, urine NEGATIVE NEGATIVE 06/26/2018 [facility] Urine phencyclidine detection by screening method NEGATIVE NEGATIVE 06/26/2018 [facility] Urine amphetamines detection by screen method > 1000 ng/mL NEGATIVE NEGATIVE 06/26/2018 [facility] Urine Methamphetamines Screen NEGATIVE NEGATIVE 06/26/2018 [facility] Urine benzodiazepines detection by screening method NEGATIVE NEGATIVE 06/26/2018 [facility] Urine cocaine measurement (mass/volume) NEGATIVE NEGATIVE 06/26/2018 [facility] Urine cannabinoids detection by screening method POSITIVE NEGATIVE 06/26/2018 [facility] Urine methadone screen NEGATIVE NEGATIVE 06/26/2018 [facility] Mucus detection in urine sediment by light microscopy MANY RARE 06/25/2018 [facility] Urine human chorionic gonadotropin (hCG) detection NEGATIVE NEGATIVE 06/25/2018 [facility] Serum or plasma amylase measurement (enzymatic activity/volume) 71 25 - 125 06/25/2018 [facility] Serum or plasma lipase measurement (enzymatic activity/volume) 11 8 - 78 06/25/2018 [facility] CHEMISTRY Lactic Acid Lvl 0.8 mMol/L 0.5 - 2.2 06/25/2012 Normal [facility] CHEMISTRY Lipase Lvl 112 unit/L 73 - 393 06/25/2012 Normal [facility] CHEMISTRY eGFR 94 mL/min/1.73m2 06/25/2012 NA [...] should be multiplied by the estimated BMI. [facility] CHEMISTRY B/C Ratio 9 6 - 25 06/25/2012 Normal [facility] CHEMISTRY AST 8 unit/L 0 - 37 06/25/2012 Normal [facility] CHEMISTRY AGAP 9.2 meq/L 10.0 - 20.0 06/25/2012 LOW [facility] CHEMISTRY Globulin 4.2 g/dL 2.0 - 4.0 06/25/2012 HI [facility] CHEMISTRY A/G Ratio 0.9 0.7 - 1.6 06/25/2012 Normal [facility] CHEMISTRY Potassium Lvl 4.2 meq/L 3.5 - 5.1 06/25/2012 Normal [facility] CHEMISTRY Chloride Lvl 106 meq/L 95 - 109 06/25/2012 Normal [facility] CHEMISTRY CO2 26 meq/L 24 - 32 06/25/2012 Normal [facility] CHEMISTRY BUN 8 mg/dL 7 - 22 06/25/2012 Normal [facility] CHEMISTRY Glucose Lvl 93 mg/dL 70 - 99 06/25/2012 Normal 2Interpretive Data: Adult reference range values reflect the clinical guidelines of the [place] [employer]. [facility] CHEMISTRY Alk Phos 64 unit/L 39 - 136 06/25/2012 Normal [facility] CHEMISTRY Total Protein 7.8 g/dL 6.4 - 8.4 06/25/2012 Normal [facility] CHEMISTRY Creatinine Lvl 0.9 mg/dL 0.5 - 1.4 06/25/2012 Normal [facility] CHEMISTRY Sodium Lvl 137 meq/L 135 - 145 06/25/2012 Normal [facility] CHEMISTRY Calcium Lvl 8.5 mg/dL 8.5 - 10.5 06/25/2012 Normal [facility] CHEMISTRY Bili Total 0.3 mg/dL 0.2 - 1.3 06/25/2012 Normal [facility] CHEMISTRY Albumin Lvl 3.6 g/dL 3.5 - 5.0 06/25/2012 Normal [facility] CHEMISTRY ALT 14 unit/L 0 - 65 06/25/2012 Normal [facility] HEMATOLOGY Basophils # 0.2 K/CMM 0.0 - 0.2 06/25/2012 Normal [facility] HEMATOLOGY Eosinophils # 0.4 K/CMM 0.0 - 0.5 06/25/2012 Normal [facility] HEMATOLOGY Monocytes # 0.7 K/CMM 0.0 - 0.8 06/25/2012 Normal [facility] HEMATOLOGY Lymphocytes # 4.1 K/CMM 1.0 - 5.5 06/25/2012 Normal [facility] HEMATOLOGY Segs-Bands # 3.6 K/CMM 1.5 - 8.1 06/25/2012 Normal [facility] HEMATOLOGY Lymphocytes 45.5 % 20.0 - 40.0 06/25/2012 HI [facility] HEMATOLOGY Eosinophils 4.1 % 0.0 - 4.0 06/25/2012 [facility] HEMATOLOGY Monocytes 7.9 % 2.0 - 12.0 06/25/2012 Normal [facility] HEMATOLOGY Basophils 2.5 % 0.0 - 1.0 06/25/2012 [facility] HEMATOLOGY Segs 40.0 % 45.0 - 75.0 06/25/2012 LOW [facility] HEMATOLOGY WBC 9.0 K/CMM 3.7 - 10.4 06/25/2012 Normal [facility] HEMATOLOGY RBC 4.27 M/CMM 4.20 - 5.40 06/25/2012 Normal [facility] HEMATOLOGY MCHC 32.8 g/dL 32.0 - 36.0 06/25/2012 Normal [facility] HEMATOLOGY MCH 30.7 pg 27.0 - 31.0 06/25/2012 Normal [facility] HEMATOLOGY MCV 93.5 fL 81.0 - 99.0 06/25/2012 Normal [facility] HEMATOLOGY Hct 39.9 % 36.0 - 48.0 06/25/2012 Normal [facility] HEMATOLOGY Hgb 13.1 g/dL 12.0 - 16.0 06/25/2012 Normal [facility] HEMATOLOGY Platelet 245 K/CMM 133 - 450 06/25/2012 [facility] HEMATOLOGY RDW 13.9 % 11.5 - 14.5 06/25/2012 Normal [facility] HEMATOLOGY MPV 9.1 fL 7.4 - 10.4 06/25/2012 Normal [facility] CHEMISTRY U Preg Negative (06/24/2012 17:47:00) Negative 06/24/2012 [facility] URINALYSIS UA RBC None Seen (06/24/2012 17:47:00) 0 - 2 06/24/2012 Normal [facility] URINALYSIS UA Bacteria Few /HPF (06/24/2012 17:47:00) None Seen 06/24/2012 Normal [facility] URINALYSIS Micro? Performed (06/24/2012 17:47:00) 06/24/2012 Normal [facility] URINALYSIS UA Sq Epi Occasional /LPF (06/24/2012 17:47:00) Few 06/24/2012 Normal [facility] URINALYSIS UA WBC 11-20 /HPF *ABN* (06/24/2012 17:47:00) None Seen 06/24/2012 ABN [facility] URINALYSIS UA Leuk Est Moderate *ABN* (06/24/2012 17:47:00) Negative 06/24/2012 ABN [facility] URINALYSIS UA Blood Negative (06/24/2012 17:47:00) Negative 06/24/2012 Normal [facility] URINALYSIS UA Nitrite Negative (06/24/2012 17:47:00) Negative 06/24/2012 Normal [facility] URINALYSIS UA Urobilinogen 0.2 EU/dL 0.1 - 1.0 06/24/2012 Normal [facility] URINALYSIS UA Turbidity Slight Cloudy (06/24/2012 17:47:00) Clear 06/24/2012 Normal [facility] URINALYSIS UA Glucose Negative (06/24/2012 17:47:00) Negative 06/24/2012 Normal [facility] URINALYSIS UA Ketones Negative *NA* (06/24/2012 17:47:00) Negative 06/24/2012 NA [facility] URINALYSIS UA pH 6.0 5.0 - 8.0 06/24/2012 Normal [facility] URINALYSIS UA Protein Negative (06/24/2012 17:47:00) Negative 06/24/2012 Normal [facility] URINALYSIS UA Spec Grav 1.015 <=1.030 06/24/2012 Normal [facility] URINALYSIS UA Color Yellow *NA* (06/24/2012 17:47:00) Yellow 06/24/2012 NA [facility] URINALYSIS UA Bili Negative *NA* (06/24/2012 17:47:00) Negative 06/24/2012 NA [facility] Vital Signs Vital Sign Value Date Comments Source Weight 99.091 07/21/2012 [facility] Height 162.56 cm 07/21/2012 [facility] Weight 99.091 07/16/2012 [facility] Height 162.56 cm 07/16/2012 [facility] Height 165.10 cm 06/24/2012 [facility] Weight 100.000 06/24/2012 [facility] Encounters Location Location Details Encounter Type Encounter Number Reason For Visit Attending Provider ADM Date DC Date Status Source [facility] Emergency [id number] COLIN REGINE 06/24/2012 06/24/2012 Active [facility] Emergency [id number] CARRILLO PRESS 07/16/2012 07/16/2012 Active [facility] Emergency [id number] DOMI FAYE 07/20/2012 07/21/2012 Active [facility] Departed Emergency Room [id number] ABIODUN KHOURY MD 09/22/2017 09/23/2017 [facility] Departed Emergency Room [id number] GLORIA OKEEFE MD 05/22/2018 05/23/2018 [facility] Departed Emergency Room [id number] IRINEO NUNEZ MD 06/11/2018 06/11/2018 [facility] Departed Emergency Room [id number] SIS CASTAÑEDA MD 06/25/2018 06/26/2018 [facility] Discharged Inpatient [id number] PB EASLEY MD 06/28/2018 07/05/2018 [facility] Procedures Procedure Code Date Perfomer Comments Source EGD with biopsy [id number] 07/04/2018 DARMADI [facility] Magnetic resonance imaging of abdomen without then with contrast [id number] 06/29/2018 JORGE [facility] Computed tomography of abdomen and pelvis with contrast [id number] 06/28/2018 ESPINO [facility]
--- OUTSIDE RECORDS SUMMARY | 2018-08-27 11:22 | XMS REPORT ---
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 Allergies, Adverse Reactions, Alerts Allergy Name Allergy Type Status Severity Reaction(s) Onset Date Inactive Date Treating Clinician Comments tramadol DA Active [place] 2018-06-26 00:00:00 ketorolac DA Active [place] 2018-06-26 00:00:00 onion DA Active [place] 2018-06-26 00:00:00 tramadol DA Active [place] 2017-10-02 00:00:00 ketorolac DA Active [place] 2017-10-02 00:00:00 onion DA Active [place] 2017-10-02 00:00:00 Medications This patient has no known medications. Encounters Start Date/Time End Date/Time Encounter Type Admission Type Attending Clinicians Care Facility Care Department Encounter ID 2018-02-22 00:00:00 2018-02-22 00:00:00 Outpatient [facility] [id number] 2018-02-08 11:20:28 2018-02-08 11:20:28 Outpatient [facility] [id number] 2018-02-08 10:21:28 2018-02-08 10:21:28 Outpatient [facility] [id number] 2018-02-08 08:19:25 2018-02-08 08:19:25 Outpatient [facility] [id number] 2017-11-09 00:00:00 2017-11-09 00:00:00 Outpatient [facility] [id number] 2017-10-26 11:06:35 2017-10-26 11:06:35 Outpatient [facility] [id number] 2017-10-26 00:00:00 2017-10-26 00:00:00 Outpatient [facility] [id number] 2017-09-12 15:39:06 2017-09-12 15:39:06 Outpatient [facility] [id number] 2017-09-12 13:19:03 2017-09-12 13:19:03 Outpatient [facility] [id number] 2017-09-12 09:22:52 2017-09-12 09:22:52 Outpatient [facility] [id number] 2017-08-01 00:00:00 2017-08-01 00:00:00 Outpatient [facility] [id number] 2017-07-20 07:57:59 2017-07-20 07:57:59 Outpatient [facility] [id number] 2017-07-18 00:00:00 2017-07-18 00:00:00 Outpatient [facility] [id number] 2017-06-27 08:44:25 2017-06-27 08:44:25 Outpatient [facility] [id number] 2017-06-27 00:00:00 2017-06-27 00:00:00 Outpatient [facility] [id number] 2017-06-22 08:21:48 2017-06-22 08:21:48 Outpatient [facility] [id number] 2017-05-24 13:43:41 2017-05-24 13:43:41 Outpatient [facility] [id number] 2017-05-24 12:24:44 2017-05-24 12:24:44 Outpatient [facility] [id number] 2017-05-23 12:15:28 2017-05-23 12:15:28 Outpatient [facility] [id number] 2017-05-23 11:27:53 2017-05-23 11:27:53 Outpatient [facility] [id number] 2017-05-23 00:00:00 2017-05-23 00:00:00 Outpatient [facility] [id number] 2017-05-01 00:00:00 2017-05-01 00:00:00 Outpatient [facility] [id number] 2017-05-01 00:00:00 2017-05-01 00:00:00 Outpatient [facility] [id number] 2017-04-27 07:29:25 2017-04-27 07:29:25 Outpatient [facility] [id number] 2017-04-25 11:14:03 2017-04-25 11:14:03 Outpatient [facility] [id number] 2017-03-16 00:00:00 2017-03-16 00:00:00 Outpatient [facility] [id number] 2017-03-09 00:00:00 2017-03-09 00:00:00 Outpatient [facility] [id number] 2017-03-01 00:00:00 2017-03-01 00:00:00 Outpatient [facility] [id number] 2017-02-23 11:05:12 2017-02-23 11:05:12 Outpatient [facility] [id number] 2017-02-23 10:14:23 2017-02-23 10:14:23 Outpatient [facility] [id number] 2017-02-23 08:41:58 2017-02-23 08:41:58 Outpatient [facility] [id number] 2017-01-31 08:33:33 2017-01-31 08:33:33 Outpatient [facility] [id number] 2017-01-31 08:30:06 2017-01-31 08:30:06 Outpatient [facility] [id number] 2017-01-30 15:46:45 2017-01-30 15:46:45 Outpatient [facility] [id number] 2017-01-12 15:35:30 2017-01-12 15:35:30 Outpatient [facility] [id number] 2017-01-12 00:00:00 2017-01-12 00:00:00 Outpatient [facility] [id number] 2017-01-10 00:00:00 2017-01-10 00:00:00 Outpatient [facility] [id number] 2016-12-30 00:00:00 2016-12-30 00:00:00 Outpatient [facility] [id number] 2016-12-06 00:00:00 2016-12-06 00:00:00 Outpatient [facility] [id number] 2016-12-02 10:48:11 2016-12-02 10:48:11 Outpatient [facility] [id number] 2016-12-02 09:11:43 2016-12-02 09:11:43 Outpatient [facility] [id number] 2016-12-02 08:27:22 2016-12-02 08:27:22 Outpatient [facility] [id number] 2016-12-02 00:00:00 2016-12-02 00:00:00 Outpatient [facility] [id number] 2016-12-02 00:00:00 2016-12-02 00:00:00 Outpatient [facility] [id number] 2016-12-02 00:00:00 2016-12-02 00:00:00 Outpatient [facility] [id number] 2016-11-15 08:28:24 2016-11-15 08:28:24 Outpatient [facility] [id number] 2014-12-11 08:31:53 2014-12-11 08:31:53 Outpatient [facility] [id number] Results Test Description Test Time Test Comments Text Results Atomic Results Result Comments BARIUM ENEMA 2018-07-02 15:39:00 [place] [address] Patient Name: BRANDYN LEGER MR #: [id number] : 1975 Age/Sex: 43/F Req #: [id number] Adm Physician: PB EASLEY MD Ordered by: FERNANDO TORREZ MD Report #: [id number] Location: [place] [address] Room/Bed: [facility] Procedure: [id number] DX/BARIUM ENEMA Exam Date: 07/02/18 Exam Time: 1330 REPORT STATUS: Signed PROCEDURE: X-RAY BARIUM ENEMA COMPARISON: [facility], CT, CT ABDOMEN/PELVIS W, 06/28/2018, 13:54. INDICATIONS: CONSTIPATION TECHNIQUE: A single contrast Gastrografin enema was performed in the usual manner. A total of 6 fluoroscopic images were taken and stored to the record. [employer] film shows suture material in the left upper quadrant of the abdomen. Pelvic calcifications appear compatible with phleboliths. FINDINGS: COLON: No evidence of obstruction. No constricting lesions are seen. Scattered filling defects compatible with fecal material is present. Postevacuation upright image shows no free air. Moderate amount of contrast remains within the colon. Fluoroscopy time: 0.8 minutes Total dose: 45.25 mGy CONCLUSION: No obstructing or constricting lesions. Steve Hartman D.O. Dictated by: Steve Hartman D.O. on 07/02/2018 at 15:39 Electronically approved by: Steve Hartman D.O. on 07/02/2018 at 15:39 Dictated By: STEVE HARTMAN DO 1539 Transcribed By: MARIANO on 07/02/18 1539 COPY TO: FERNANDO TORREZ MD ABDOMEN-1VIEW (KUB) 2018-07-01 12:45:00 [place] [address] Patient Name: BRANDYN LEGER MR #: [id number] : 1975 Age/Sex: 43/F Req #: [id number] Adm Physician: PB EASLEY MD Ordered by: NEVAEH ALONSO MD Report #: [id number] Location: MED/SURG Room/Bed: [facility] Procedure: [id number] DX/ABDOMEN-1VIEW (KUB) Exam Date: 07/01/18 Exam Time: 1200 REPORT STATUS: Signed EXAM: Abdomen 1 Views INDICATION: CONSTIPA TION [id number] 1200 COMPARISON: CT abdomen and pelvis 06/28/2018 FINDINGS: Large amount of of stool and oral contrast in the colon. No dilated loops of small bowel. No renal calculi. No abnormal soft tissue masses. No degenerative changes in the lumbar spine and pelvis. IMPRESSION: 1. Radiographic findings consistent with constipation. 2. No bowel dilatation or obstruction. Signed by: Dr. Kathy Baldwin M.D. on 07/01/2018 12:46 PM Dictated By: KATHY BALDWIN MD 1246 Transcribed By: KRISTIN on 07/01/18 1246 COPY TO: NEVAEH ALONSO MD MRI ABDOMEN WOW 2018-06-29 13:24:00 [place] [address] Patient Name: BRANDYN LEGER MR #: [id number] : 1975 Age/Sex: 43/F Req #: [id number] Adm Physician: PB EASLEY MD Ordered by: ALY PATEL MD Report #: [id number] Location: ICU Room/Bed: ICU [facility] Procedure: [id number] MRI/MRI ABDOMEN WOW Exam Date: 06/29/18 Exam Time: 1155 REPORT STATUS: Signed EXAMINATION: MRI Abdomen with and without contrast. TECHNIQUE: Axial T1 nonfat sat in and out of phase, axial T2 fat sat, coronal T2 nonfat sat, axial DWI and ADC MR images of the abdomen were obtained before and after the administration of 10 cc of gadolinium. Axial T1 fat sat GRE dynamic images in precontrast, arterial, venous and delayed phases were obtained. CLINICAL HISTORY:Abnormal finding on CT, hypoglycemia, lower GI bleeding COMPARISON: CT abdomen and pelvis 06/28/2018 and 05/22/2018 FINDINGS: LOWER THORAX: Unremarkable. LIVER: Normal hepatic size and contour.. No hepatic signal abnormality. * Ill-defined 1.7 x 1.3 cm T1 and T2 hyperintense rounded focal lesion at the falciform ligament (series 11, image 42), which show signal dropout on out of phase images and fat-suppressed images (series 11, image 41 and series 10, image 21), likely representing a combination of focal fatty infiltration and invagination of adjacent peritoneal fat. * Relatively well-circumscribed 1.4 x 1.8 cm peripherally located wedge-shaped T2 minimally hyperintense, T1 iso to slightly hypointense focal lesion in hepatic segment V (series 13, image 69) which does not show significant signal dropout on out of phase or fat-suppressed images. This is predominantly seen on the arterial phase and subtraction images (series 100, image 26), and is less conspicuous on portal venous and delayed phases, where it becomes mostly isointense. No mass effect. Normal vessels are noted coursing through this area. No restricted diffusion. * No other focal lesions. BILIARY: No ductal dilatation or filling defect. The gallbladder has a normal appearance. PANCREAS: No mass or ductal dilatation. SPLEEN: No splenomegaly. ADRENALS: No nodules. KIDNEYS: No hydronephrosis or solid enhancing mass in the imaged portion of the kidneys. PERITONEUM / RETROPERITONEUM: No upper abdominal free fluid. GI TRACT: Visualized bowel shows no dilation or obstruction. LYMPH NODES: No upper abdominal lymphadenopathy. VESSELS: The celiac trunk, superior and inferior mesenteric and bilateral renal arteries are patent. The portal, superior mesenteric and splenic veins are patent. No collateral circulation. BONES AND SOFT TISSUES: No abnormal bone marrow signal. No soft tissue abnormalities. IMPRESSION: 1. Ill-defined 1.7 cm rounded focal lesion of the falciform ligament shows evidence of microscopic and macroscopic fat, likely represents a combination of focal fatty infiltration and invagination of adjacent peritoneal fat. Lipoma or pseudo-lipoma of the Jacoby's capsule are less likely considerations. 2. A triangular-shaped T1 slightly hypointense lesion in the peripheral aspect of hepatic segment V shows no significant signal dropout on out of phase images or fat-suppressed images to consider fat. There are normal vessels running through this area without evidence of mass effect and no restricted diffusion to suggest a mass. There is slight delay in enhancement compared to the rest of the hepatic parenchyma, on arterial phase, however, equalizes in the rest of the dynamic study, without evidence of washout. Although this lesion remains indeterminate, this is likely of benign nature. Signed by: Dr. Jesús Gutierrez M.D. on 06/29/2018 1:52 PM Dictated By: JESÚS GUTIERREZ MD 1352 Transcribed By: KRISTIN on 06/29/18 1352 COPY TO: ALY PATEL MD CT ABDOMEN/PELVIS W 2018-06-28 14:12:00 [place] [address] Patient Name: BRANDYN LEGER MR #: [id number] : 1975 Age/Sex: 43/F Req #: [id number] Adm Physician: Ordered by: YANG ESPINO NP Report #: [id number] Location: ER Room/Bed: Procedure: [id number] CT/CT ABDOMEN/PELVIS W Exam Date: 06/28/18 Exam Time: 1350 REPORT STATUS: Signed EXAMINATION: CT of the abdomen and pelvis with contr ast. TECHNIQUE: Spiral CT images of the abdomen and pelvis were performed from the lung bases to the lesser trochanters after the intravenous administration of 100 cc of Isovue-370 and the oral administration of Gastrografin. Coronal and sagittal reformatted images were obtained. COMPARISON: CT abdomen and pelvis with contrast 05/22/2018 CLINICAL HISTORY:Lower abdominal pain, nausea, vomiting, constipation DISCUSSION: ABDOMEN/PELVIS: LOWER THORAX:Unremarkable. HEPATOBILIARY: Subcentimeter hypoattenuating lesion in segment 4A, too small to further characterize but likely to represent small cyst. 1.6 cm round lesion adjacent to the falciform ligament has average internal attenuation 0-5 Hounsfield units. Ill-defined taydyrvblz-appay-uqyjjo subcapsular lesion in segment 6 measures 2.5 cm, unchanged compared to prior exam. Radiodense material in the dependent portion of the gallbladder likely represents sludge. No wall thickening or pericholecystic inflammation. SPLEEN: No splenomegaly. PANCREAS: No focal masses or ductal dilatation. ADRENALS: No adrenal nodules. KIDNEYS/URETERS: No hydronephrosis, stones, or solid mass lesions. PELVIC ORGANS/BLADDER: Urinary bladder is unremarkable. Uterus is not identified and has presumably been removed. No adnexal mass. PERITONEUM/RETROPERITONEUM: No ascites. No pneumoperitoneum. LYMPH NODES: No pelvic sidewall, retroperitoneal, or mesenteric lymphadenopathy. VESSELS: Abdominal aorta, major branch vessels, and iliac arterial systems are patent. Hepatic arterial anatomy appears conventional. Portal vein, splenic vein, and central superior mesenteric vein are patent. GI TRACT: Large amount of fecal material within the rectum. The large bowel otherwise shows no evidence of distention or wall thickening though the majority of the descending colon is collapsed and poorly evaluated. The appendix is normal. Status post gastric sleeve operation with hiatal hernia notable for presence of the cranial portion of the suture line above the diaphragm. No small bowel dilatation to suggest obstruction. BONES AND SOFT TISSUE: Subcutaneous stranding along the left rectus abdominis muscle may reflect postsurgical change, unchanged compared prior. Otherwise no focal soft tissue abnormalities. No osseous destructive lesions. Degenerative disc changes and facet arthropathy of the lower lumbar spine. IMPRESSION: No acute intra-abdominal or pelvic CT abnormalities. Large amount of fecal material within the rectum in keeping with the provided clinical history of constipation. Probable gallbladder sludge without wall thickening or pericholecystic inflammation. Hiatal hernia containing a portion of gastric sleeve suture, unchanged. Unchanged indeterminate hypoattenuating lesion in the right hepatic lobe. As before, further evaluation with nonemergent MRI of the abdomen with and without contrast (liver mass protocol) is suggested. Low-attenuation lesion along the falciform ligament measures fluid attenuation on the current examination (previously fat attenuation). This may represent focal fatty infiltration or a cystic lesion. Above recommended MRI will be helpful in further characterization of this area as well. Signed by: Dr. Hesham Collado M.D. on 06/28/2018 2:25 PM Dictated By: HESHAM COLLADO MD 4551 Transcribed By: KRISTIN on 06/28/18 3798 COPY TO: YANG ESPINO NP ABDOMEN-1VIEW (KUB) 2018-06-26 01:07:00 [place] [address] Patient Name: BRANDNY LEGER MR #: [id number] : 1975 Age/Sex: 43/F Req #: [id number] Adm Physician: Ordered by: MICHELLE AZUL NP Report #: [id number] Location: ER Room/Bed: Procedure: [id number] DX/ABDOMEN-1VIEW (KUB) Exam Date: 06/26/18 Exam Time: 0035 REPORT STATUS: Signed EXAM: ABDOMEN-1VIEW (KUB) DATE: 06/25/2018 11:29 PM INDICATION: Abdominal pain. COMPARISON: CT 05/22/2018. FINDINGS: LINES/TUBES: None BOWEL PATTERN: No evidence for obstruction. Gastric sleeve sutures with sutures extending above the GE junction. Moderate amount of stool in the colon and rectum. SOFT TISSUES: No abnormal calcifications. No mass effect. LUNG BASES: Not included BONES: No acute findings. IMPRESSION: Nonobstructive bowel gas pattern. Signed by: DR. Reji Kelly MD on 06/26/2018 1:11 AM Dictated By: REJI KELLY MD 0 Transcribed By: KRISTIN on 06/26/18110 COPY TO: MICHELLE AZUL NP CT ABD/PEL WITH CONTRAST-HOPD 2018-05-22 23:07:00 [place] [address] Patient Name: BRANDYN LEGER MR #: [id number] : 1975 Age/Sex: 43/F Req #: [id number] [facility] Physician: Ordered by: GLORIA OKEEFE MD Report #: [id number] Location: [facility] Room/Bed: Procedure: [id number] HOPD/CT ABD/PEL WITH CONTRAST-HOPD Exam Date: 05/22/18 Exam Time: 2249 REPORT STATUS: Signed EXAM: CT Abdomen and Pelvis WITH contrast INDICATION: Rectal and vaginal bleeding with abdominal pain. Left lower quadrant pain for 3 days. [id number] COMPARISON: None. TECHNIQUE: Abdomen and pelvis were scanned utilizing a multidetector helical scanner from the lung base to the pubic symphysis after administration of IV contrast. Coronal and sagittal reformations were obtained. Routine protocol was performed. Scan was performed when during portal venous phase. IV CONTRAST: 100 mL of Isovue-370 ORAL CONTRAST: Water COMPLICATIONS: None RADIATION DOSE: Total DLP: 532.9 mGy*cm Estimated effective dose: (DLP x 0.015 x size factor) mSv CTDIvol has been reviewed. It is below the limits set by the Radiation Protocol Committee (RPC). Dose modulation, iterative reconstruction, and/or weight based adjustment of the mA/kV was utilized to reduce the radiation dose to as low as reasonably achievable. FINDINGS: LINES and TUBES: None. LOWER T HORAX: Small hiatal hernia containing some of the gastric sleeve sutures. HEPATOBILIARY: Fat attenuation along the falciform ligament likely representing focal fatty infiltration. Ill-defined subtle approximately 2.4 cm hypoattenuating area in the right hepatic lobe (series 2 image 32). No biliary ductal dilation. GALLBLADDER: No radio-opaque stones or sludge. No wall thickening. SPLEEN: No splenomegaly. PANCREAS: No focal masses or ductal dilatation. ADRENALS: No adrenal nodules KIDNEYS/URETERS: Kidneys enhance symmetrically. No hydronephrosis. No cystic or solid mass lesions. No stones. GI TRACT: Gastric sleeve. No abnormal distention, wall thickening, or evidence of bowel obstruction. Moderate amount of stool in the colon. Appendix is normal. PELVIC ORGANS/BLADDER: Hysterectomy. Bladder is collapsed, limiting evaluation. LYMPH NODES: No lymphadenopathy. VESSELS: Unremarkable. PERITONEUM / RETROPERITONEUM: No free air or fluid. BONES: Unremarkable. SOFT TISSUES: Small fat-containing inguinal hernias. Small fat-containing left lower quadrant Spigelian hernias (series 2 image 51 and 60). IMPRESSION: 1. No acute abnormalities in the abdomen or pelvis. 2. Indeterminate lesion in the right hepatic lobe. Recommend further evaluation with nonemergent MRI liver mass protocol. 3. Small hiatal hernia containing a portion of the gastric sleeve sutures. 4. Of note, provided history describes prior cholecystectomy although the gallbladder is present. Signed by: DR. Reji Kelly MD on 05/22/2018 11:37 PM Dictated By: REJI KELLY MD 36 Transcribed By: KRISTIN on 05/22/182336 COPY TO: GLORIA OKEEFE MD
[2018-08-27] MEDS ORDERED: HYDROCODONE/APAP 7.5MG-325MG 1 EA TAB PO PRN (11:45)
[2018-08-27] MEDS ORDERED: KETOROLAC TROMETHAMINE 60 MG/2 ML VIAL IM ONE (11:45)
[2018-08-27] MEDS ORDERED: HYDROCODONE/APAP 5MG-325MG TAB PO ONE (12:00)
--- NOTE | 2018-08-27 12:23 | Diagnostic Imaging Report ---
Exam: Right hip radiographs, 2 views. History: Right hip pain status post trauma. Comparison: None. Findings: AP and frogleg view of the right hip. No evidence of acute fracture, malalignment, or soft tissue abnormality. No significant degenerative changes. Impression: No acute radiographic abnormality. Signed by: Dr. Clem Pruitt MD on 08/27/2018 12:19 PM
--- NOTE | 2018-08-27 12:25 | Diagnostic Imaging Report ---
Exam: Right knee radiographs-3 views. Indication: Right knee abrasion status post trauma. Comparison: None. Findings: No evidence of acute fracture, malalignment, or soft tissue abnormality. No joint effusion. Minimal degenerative changes in the lateral compartment. Well-corticated bony fragment adjacent to the tibial tuberosity could reflect sequela of prior trauma. Impression: No acute radiographic abnormality. Signed by: Dr. Clem Pruitt MD on 08/27/2018 12:21 PM
--- NOTE | 2018-08-27 12:35 | Diagnostic Imaging Report ---
Exam: Right first toe radiographs-3 views Clinical History: Status post trauma. Comparison: None. Findings: No evidence of acute fracture or malalignment. There is soft tissue edema in the great toe. Slight skin irregularity along the medial great toe soft tissues with hyperdensity. Mild degenerative changes are partially visualized within the intertarsal joints. Impression: Soft tissue edema in the great toe without evidence of acute osseous abnormality. Slight skin irregularity along the medial great toe soft tissues with hyperdensity could reflect laceration and hematoma and can be correlated with exam. Signed by: Dr. Clem Pruitt MD on 08/27/2018 12:31 PM
== END 2018-08-27 12:55 | disposition home or self-care (01) ==
LOC: FSED 11:18
DX: S70.01XA Contusion of right hip, initial encounter (principal); S80.211A Abrasion, right knee, initial encounter; S90.411A Abrasion, right great toe, initial encounter; W18.30XA Fall on same level, unspecified, initial encounter; Y93.01 Activity, walking, marching and hiking; Y92.512 Supermarket, store or market as the place of occurrence of the external cause
CPT/HCPCS: 73502; 73560; 73660; 99283; J1885

== ENCOUNTER 2018-11-10 10:05 | Observation (INO) | payer MEDICARE ==
[~2018-11-10] VITALS: Ht 160 cm; Wt 55.1 kg
--- OUTSIDE RECORDS SUMMARY | 2018-11-10 10:09 | XMS REPORT | Continuity of Care Document ---
Author Author [facility] Interface Address Unknown Phone Unavailable Problems Problem Status Onset Date Classification Date Reported Comments Source LWBS Active 07/20/2012 [facility] BOIL RIGHT ARMPIT, STOMACH PAIN Active 07/16/2012 [facility] ABDOMINAL/BACK PAIN Active 06/24/2012 [facility] Diabetes mellitus type 2 Active Problem 07/23/2012 [facility] Hypertension Active Problem 07/23/2012 [facility] Ulcer<sup>1</sup> Active Problem 07/23/2012 1gastric ulcer [facility] Hypoglycemia Active Problem 08/27/2018 [facility] LGI bleed Active Problem 08/27/2018 [facility] Medications Medication Details Route Status Patient Instructions Ordering Provider Order Date Source [place] 5/325 oral tablet 1-2 tab, PO, Q4-6H, PRN, 15 tab, Pain, Substitution Allowed, Maintenance PO Active [facility] 07/17/2012 [facility] clindamycin 300 mg oral capsule 300 mg, 1 cap, PO, QID, 28 cap, Substitution Allowed PO Active [facility] 07/17/2012 [facility] acetaminophen-hydrocodone 325 mg-5 mg oral tablet 1 tab, Route: PO, Dosing Weight 99.091, kg, ONCE, STAT, Start date: 07/16/12 18:33:00, Stop date: 07/16/12 18:33:00 PO No Longer Active [facility] 07/17/2012 [facility] Cipro 500 mg oral tablet 500 mg, 1 tab, PO, Q12H, 10 tab, Substitution Allowed, TAB PO Active 06/25/2012 [facility] Protonix 20 mg oral enteric coated tablet 40 mg, 2 tab, PO, Daily, 60 tab, Substitution Allowed, ECTAB PO Active 06/25/2012 [facility] Cipro 500 mg oral tablet 500 mg, 1 tab, PO, Q12H, 6 tab, Substitution Allowed, TAB PO No Longer Active 06/25/2012 [facility] metFORmin 500 mg oral tablet 500 mg, 1 tab, PO, BID, 30 tab, Substitution Allowed PO Active 06/25/2012 [facility] diclofenac sodium 75 mg oral enteric coated tablet 75 mg, 1 tab, PO, BID, 60 tab, Substitution Allowed, ECTAB PO Active 06/25/2012 [facility] Flexeril 10 mg oral tablet 10 mg, 1 tab, PO, Daily, PRN, 30 tab, for spasm, Substitution Allowed, TAB PO Active 06/25/2012 [facility] Advil 200 mg oral tablet 400 mg, 2 tab, PO, Q4H, PRN, 120 tab, Pain, Substitution Allowed, TAB PO Active 06/25/2012 [facility] Maalox 30 mL, Route: PO, Drug Form: SUSP, Dosing Weight 100, kg, ONCE, Start date: 06/24/12 18:46:00, Stop date: 06/24/12 18:46:00 PO No Longer Active [facility] 06/25/2012 [facility] Xylocaine Viscous 2% mucous membrane solution 30 mL, Route: PO, Drug Form: SOLN, Dosing Weight 100, kg, ONCE, Start date: 06/24/12 18:46:00, Stop date: 06/24/12 18:46:00 PO No Longer Active [facility] 06/25/2012 [facility] Protonix 40 mg, 1 tab, Route: PO, Drug form: ECTAB, ONCE, Dosing Weight 100, kg, Priority: STAT, Start date: 06/24/12 18:44:00, Stop date: 06/24/12 18:44:00 PO No Longer Active [facility] 06/25/2012 [facility] morphine Sulfate 4 mg, 1 mL, Route: IVP, Drug form: INJ, ONCE, Dosing Weight 100, kg, Priority: STAT, Start date: 06/24/12 17:16:00, Stop date: 06/24/12 17:16:00 IVP No Longer Active [facility] 06/24/2012 [facility] Zofran 4 mg, 2 mL, Route: IVP, Drug form: INJ, ONCE, Dosing Weight 100, kg, Priority: STAT, Start date: 06/24/12 17:16:00, Stop date: 06/24/12 17:16:00 IVP No Longer Active [facility] 06/24/2012 [facility] NS (Bolus) IV 1,000 mL, 1000 ml/hr, Route: IV, Drug Form: INJ, Dosing Weight 100, kg, ONCE, STAT, Start date: 06/24/12 17:16:00, Duration: 1 doses or times, Stop date: 06/24/12 17:16:00 IV No Longer Active [facility] 06/24/2012 [facility] Albuterol Sulfate 2 Mg Tablet Twice A Day Active [facility] Amlodipine Besylate 10 Mg Tablet Twice A Day Active [facility] Albuterol Sulfate 2 Mg Tablet Twice A Day Active [facility] Amlodipine Besylate 10 Mg Tablet Twice A Day Active [facility] Acetaminophen/Codeine Phosphate (Tylenol # 3*) 1 Ea Tab Every 6 Hours as needed for Pain Active [facility] Carisoprodol 350 Mg Tablet Three Times A Day Active [facility] Docusate Sodium (Colace) 100 Mg Capsule Twice A Day Active [facility] Gabapentin 800 Mg Tablet Three Times A Day Active [facility] Lactulose (Kristalose) 20 Gm Packet Twice A Day Active [facility] Liothyronine Sodium 5 Mcg Tablet Daily Active [facility] Lurasidone Hcl (Latuda) 40 Mg Tablet Daily Active [facility] Ondansetron Hcl 4 Mg Tablet Every 4 Hours as needed for Nausea And Vomiting Active [facility] Ondansetron Hcl (Zofran*) 4 Mg Tablet Every 8 Hours Active [facility] Pantoprazole Sodium (Protonix) 40 Mg Tablet.dr Twice A Day Active [facility] Sucralfate (Carafate) 1 Gm/10 Ml Oral.susp Every 6 Hours [facility] Tizanidine Hcl 4 Mg Tablet Bedtime Active [facility] Allergies, Adverse Reactions, Alerts Substance Category Reaction Severity Reaction type Status Date Reported Comments Source Tramadol RASH Intermediate Allergy to Substance Active 06/28/2018 [facility] Immunizations Immunization Date Given Site Status Last Updated Comments Source Results Order Name Results Value Reference Range Date Interpretation Comments Source Blood leukocytes automated count (number/volume) 2.51 4.8 - 10.8 07/05/2018 [facility] Blood erythrocytes automated count (number/volume) 3.80 3.6 - 5.1 07/05/2018 [facility] Blood hemoglobin measurement (moles/volume) 11.8 12.0 - 16.0 07/05/2018 [facility] Automated blood hematocrit (volume fraction) 35.8 34.2 - 44.1 07/05/2018 [facility] Automated erythrocyte mean corpuscular volume 94.2 81 - 99 07/05/2018 [facility] Automated erythrocyte mean corpuscular hemoglobin (mass per erythrocyte) 31.1 28 - 32 07/05/2018 [facility] Automated erythrocyte mean corpuscular hemoglobin concentration measurement (mass/volume) 33.0 31 - 35 07/05/2018 [facility] RDW BldCo-Rto 16.0 11.7 - 14.4 07/05/2018 [facility] Automated blood platelet count (count/volume) 241 140 - 360 07/05/2018 [facility] Automated blood segmented neutrophil count as percentage of total leukocytes 69.3 38.7 - 80.0 07/05/2018 [facility] Automated blood lymphocyte count as percentage ot total leukocytes 25.1 18.0 - 39.1 07/05/2018 [facility] Automated blood monocyte count as percentage of total leukocytes 4.4 4.4 - 11.3 07/05/2018 [facility] Automated blood eosinophil count as percentage of total leukocytes 0.4 0.0 - 6.0 07/05/2018 [facility] Automated blood basophil count as percentage of total leukocytes 0.8 0.0 - 1.0 07/05/2018 [facility] IM GRANULOCYTES % 0.0 0.0 - 1.0 07/05/2018 [facility] Automated blood neutrophil count 1.7 2.1 - 6.9 07/05/2018 [facility] Blood lymphocytes count (number/volume) 0.6 1.0 - 3.2 07/05/2018 [facility] Blood monocytes automated count (number/volume) 0.1 0.2 - 0.8 07/05/2018 [facility] Automated blood eosinophil count 0.0 0.0 - 0.4 07/05/2018 [facility] Automated blood basophil count (count/volume) 0.0 0.0 - 0.1 07/05/2018 [facility] Absolute Immature Granulocyte (auto 0 0 - 0.1 07/05/2018 [facility] Serum or plasma sodium measurement (moles/volume) 135 136 - 145 07/05/2018 [facility] Serum or plasma potassium measurement (moles/volume) 3.7 3.5 - 5.1 07/05/2018 [facility] Serum or plasma chloride measurement (moles/volume) 103 98 - 107 07/05/2018 [facility] Serum or plasma carbon dioxide, total measurement (moles/volume) 19 22 - 29 07/05/2018 [facility] Serum or plasma anion gap 16.7 8 - 16 07/05/2018 [facility] Serum or plasma urea nitrogen measurement (mass/volume) < 5 7 - 26 07/05/2018 [facility] Serum or plasma creatinine measurement (mass/volume) 0.73 0.57 - 1.11 07/05/2018 [facility] Serum or plasma urea nitrogen/creatinine mass ratio 7 6 - 25 07/05/2018 [facility] Estimated glomerular filtration rate (GFR) determination > 60 60 07/05/2018 [facility] Glucose measurement 143 74 - 118 07/05/2018 [facility] Serum or plasma calcium measurement (mass/volume) 9.4 8.4 - 10.2 07/05/2018 [facility] Capillary blood glucose measurement by glucometer (mass/volume) 140 70 - 120 07/05/2018 [facility] Serum or plasma total bilirubin measurement (mass/volume) 0.4 0.2 - 1.2 07/04/2018 [facility] Aspartate Amino Transf (AST/SGOT) 12 5 - 34 07/04/2018 [facility] Serum or plasma alanine aminotransferase measurement (enzymatic activity/volume) 12 0 - 55 07/04/2018 [facility] Serum or plasma protein measurement (mass/volume) 4.7 6.5 - 8.1 07/04/2018 [facility] Serum or plasma albumin measurement (mass/volume) 2.5 3.5 - 5.0 07/04/2018 [facility] Plasma globulin measurement (mass/volume) 2.2 2.3 - 3.5 07/04/2018 [facility] Serum or plasma albumin/globulin mass ratio 1.1 0.8 - 2.0 07/04/2018 [facility] Serum or plasma alkaline phosphatase measurement (enzymatic activity/volume) 36 40 - 150 07/04/2018 [facility] Differential Total Cells Counted 100 07/02/2018 [facility] Manual blood neutrophils/100 leukocytes 62 40 - 74 07/02/2018 [facility] Manual blood band neutrophils form/100 leukocytes 1 07/02/2018 [facility] Manual blood lymphocytes/100 leukocytes 18 19 - 48 07/02/2018 [facility] Manual blood monocytes/100 leukocytes 12 3.4 - 9.0 07/02/2018 [facility] Manual blood eosinophil count as percentage of total leukocytes 6 0 - 7 07/02/2018 [facility] Manual basophil percentage 1 0 - 1.5 07/02/2018 [facility] Blood platelets count by estimate (number/volume) ADEQUATE 07/02/2018 [facility] Platelet morphology NORMAL 07/02/2018 [facility] Blood hypochromia detection by light microscopy SLIGHT 07/02/2018 [facility] Blood anisocytosis detection by light microscopy SLIGHT 07/02/2018 [facility] RBC morphology NORMAL 07/02/2018 [facility] Serum or plasma C peptide measurement (mass/volume) 1.1 1.1 - 4.4 06/30/2018 [facility] Serum or plasma thyroxine (T4) free measurement (mass/volume) 0.95 0.9 - 1.8 06/29/2018 [facility] Serum or plasma thyrotropin measurement by detection limit <=0.005 miu/l (units/volume) 1.943 0.350 - 4.940 06/29/2018 [facility] Plasma corticotropin measurement (mass/volume) 9.0 7.2 - 63.3 06/29/2018 [facility] Serum or plasma triiodothyronine (T3) free measurement (mass/volume) 2.0 2.0 - 4.4 06/29/2018 [facility] Serum or plasma cortisol measurement (mass/volume) 7.5 06/29/2018 [facility] Serum or plasma insulin measurement (units/volume) 4.9 2.6 - 24.9 06/28/2018 [facility] Urine color determination YELLOW YELLOW 06/28/2018 [facility] Urine clarity CLEAR CLEAR 06/28/2018 [facility] Specific gravity of Urine by Test strip 1.015 1.010 - 1.025 06/28/2018 [facility] Urine pH measurement by automated test strip 6 5 - 7 06/28/2018 [facility] Urine leukocyte esterase detection by dipstick NEGATIVE NEGATIVE 06/28/2018 [facility] Urine nitrite detection NEGATIVE NEGATIVE 06/28/2018 [facility] Urine protein measurement by test strip (mass/volume) NEGATIVE NEGATIVE 06/28/2018 [facility] Urine glucose detection 2+ NEGATIVE 06/28/2018 [facility] Urine ketones detection by automated test strip 2+ NEGATIVE 06/28/2018 [facility] Urine urobilinogen measurement by test strip (mass/volume) 0.2 0.2 - 1 06/28/2018 [facility] Urine total bilirubin measurement (mass/volume) 2+ NEGATIVE 06/28/2018 [facility] Urine erythrocytes detection NEGATIVE NEGATIVE 06/28/2018 [facility] Automated urine sediment leukocyte count by microscopy (number/high power field) NONE 0 - 5 06/28/2018 [facility] Erythrocytes detection in urine sediment by light microscopy 0-5 0 - 5 06/28/2018 [facility] Bacteria detection in urine sediment by light microscopy NONE NONE 06/28/2018 [facility] Epithelial cells detection in urine sediment by light microscopy FEW NONE 06/28/2018 [facility] Lactic Acid Level 9.0 4.5 - 19.8 06/28/2018 [facility] Blood culture NO GROWTH AFTER 5 DAYS, FINAL REPORT 06/28/2018 [facility] Hemoglobin A1c Percent 4.1 4.0 - 7.0 06/28/2018 [facility] Serum or plasma choriogonadotropin ( test) detection NEGATIVE NEGATIVE 06/28/2018 [facility] Prothrombin time (PT) in platelet poor plasma by coagulation assay 14.2 11.9 - 14.5 06/28/2018 [facility] INR in Platelet poor plasma by Coagulation assay 1.01 06/28/2018 [facility] Activated partial thromboplastin time (aPTT) in platelet poor plasma bycoagulation assay 28.6 23.8 - 35.5 06/28/2018 [facility] Serum or plasma magnesium measurement (mass/volume) 2.2 1.3 - 2.1 06/28/2018 [facility] Stool gastrointestinal hemoglobin detection POSITIVE NEGATIVE 06/28/2018 [facility] Urine opiates screening test POSITIVE NEGATIVE 06/26/2018 [facility] Barbiturates screen, urine NEGATIVE NEGATIVE 06/26/2018 [facility] Urine phencyclidine detection by screening method NEGATIVE NEGATIVE 06/26/2018 [facility] Urine amphetamines detection by screen method > 1000 ng/mL NEGATIVE NEGATIVE 06/26/2018 [facility] Urine Methamphetamines Screen NEGATIVE NEGATIVE 06/26/2018 [facility] Urine benzodiazepines detection by screening method NEGATIVE NEGATIVE 06/26/2018 [facility] Urine cocaine measurement (mass/volume) NEGATIVE NEGATIVE 06/26/2018 [facility] Urine cannabinoids detection by screening method POSITIVE NEGATIVE 06/26/2018 [facility] Urine methadone screen NEGATIVE NEGATIVE 06/26/2018 [facility] Mucus detection in urine sediment by light microscopy MANY RARE 06/25/2018 [facility] Urine human chorionic gonadotropin (hCG) detection NEGATIVE NEGATIVE 06/25/2018 [facility] Serum or plasma amylase measurement (enzymatic activity/volume) 71 25 - 125 06/25/2018 [facility] Serum or plasma lipase measurement (enzymatic activity/volume) 11 8 - 78 06/25/2018 [facility] CHEMISTRY Lactic Acid Lvl 0.8 mMol/L 0.5 - 2.2 06/25/2012 Normal [facility] CHEMISTRY Lipase Lvl 112 unit/L 73 - 393 06/25/2012 Normal [facility] CHEMISTRY eGFR 94 mL/min/1.73m2 06/25/2012 NA 1Result [...] should be multiplied by the estimated BMI. [facility] CHEMISTRY B/C Ratio 9 6 - 25 06/25/2012 Normal [facility] CHEMISTRY AST 8 unit/L 0 - 37 06/25/2012 Normal [facility] CHEMISTRY AGAP 9.2 meq/L 10.0 - 20.0 06/25/2012 LOW [facility] CHEMISTRY Globulin 4.2 g/dL 2.0 - 4.0 06/25/2012 HI [facility] CHEMISTRY A/G Ratio 0.9 0.7 - 1.6 06/25/2012 Normal [facility] CHEMISTRY Potassium Lvl 4.2 meq/L 3.5 - 5.1 06/25/2012 Normal [facility] CHEMISTRY Chloride Lvl 106 meq/L 95 - 109 06/25/2012 Normal [facility] CHEMISTRY CO2 26 meq/L 24 - 32 06/25/2012 Normal [facility] CHEMISTRY BUN 8 mg/dL 7 - 22 06/25/2012 Normal [facility] CHEMISTRY Glucose Lvl 93 mg/dL 70 - 99 06/25/2012 Normal 2Interpretive Data: Adult reference range values reflect the clinical guidelines of the [place] [employer]. [facility] CHEMISTRY Alk Phos 64 unit/L 39 - 136 06/25/2012 Normal [facility] CHEMISTRY Total Protein 7.8 g/dL 6.4 - 8.4 06/25/2012 Normal [facility] CHEMISTRY Creatinine Lvl 0.9 mg/dL 0.5 - 1.4 06/25/2012 Normal [facility] CHEMISTRY Sodium Lvl 137 meq/L 135 - 145 06/25/2012 Normal [facility] CHEMISTRY Calcium Lvl 8.5 mg/dL 8.5 - 10.5 06/25/2012 Normal [facility] CHEMISTRY Bili Total 0.3 mg/dL 0.2 - 1.3 06/25/2012 Normal [facility] CHEMISTRY Albumin Lvl 3.6 g/dL 3.5 - 5.0 06/25/2012 Normal [facility] CHEMISTRY ALT 14 unit/L 0 - 65 06/25/2012 Normal [facility] HEMATOLOGY Basophils # 0.2 K/CMM 0.0 - 0.2 06/25/2012 Normal [facility] HEMATOLOGY Eosinophils # 0.4 K/CMM 0.0 - 0.5 06/25/2012 Normal [facility] HEMATOLOGY Monocytes # 0.7 K/CMM 0.0 - 0.8 06/25/2012 Normal [facility] HEMATOLOGY Lymphocytes # 4.1 K/CMM 1.0 - 5.5 06/25/2012 Normal [facility] HEMATOLOGY Segs-Bands # 3.6 K/CMM 1.5 - 8.1 06/25/2012 Normal [facility] HEMATOLOGY Lymphocytes 45.5 % 20.0 - 40.0 06/25/2012 [facility] HEMATOLOGY Eosinophils 4.1 % 0.0 - 4.0 06/25/2012 [facility] HEMATOLOGY Monocytes 7.9 % 2.0 - 12.0 06/25/2012 Normal [facility] HEMATOLOGY Basophils 2.5 % 0.0 - 1.0 06/25/2012 [facility] HEMATOLOGY Segs 40.0 % 45.0 - 75.0 06/25/2012 LOW [facility] HEMATOLOGY WBC 9.0 K/CMM 3.7 - 10.4 06/25/2012 Normal [facility] HEMATOLOGY RBC 4.27 M/CMM 4.20 - 5.40 06/25/2012 Normal [facility] HEMATOLOGY MCHC 32.8 g/dL 32.0 - 36.0 06/25/2012 Normal [facility] HEMATOLOGY MCH 30.7 pg 27.0 - 31.0 06/25/2012 Normal [facility] HEMATOLOGY MCV 93.5 fL 81.0 - 99.0 06/25/2012 Normal [facility] HEMATOLOGY Hct 39.9 % 36.0 - 48.0 06/25/2012 Normal [facility] HEMATOLOGY Hgb 13.1 g/dL 12.0 - 16.0 06/25/2012 Normal [facility] HEMATOLOGY Platelet 245 K/CMM 133 - 450 06/25/2012 Normal [facility] HEMATOLOGY RDW 13.9 % 11.5 - 14.5 06/25/2012 Normal [facility] HEMATOLOGY MPV 9.1 fL 7.4 - 10.4 06/25/2012 Normal [facility] CHEMISTRY U Preg Negative (06/24/2012 17:47:00) Negative 06/24/2012 Normal [facility] URINALYSIS UA RBC None Seen (06/24/2012 17:47:00) 0 - 2 06/24/2012 Normal [facility] URINALYSIS UA Bacteria Few /HPF (06/24/2012 17:47:00) None Seen 06/24/2012 Normal [facility] URINALYSIS Micro? Performed (06/24/2012 17:47:00) 06/24/2012 Normal [facility] URINALYSIS UA Sq Epi Occasional /LPF (06/24/2012 17:47:00) Few 06/24/2012 Normal [facility] URINALYSIS UA WBC 11-20 /HPF *ABN* (06/24/2012 17:47:00) None Seen 06/24/2012 ABN [facility] URINALYSIS UA Leuk Est Moderate *ABN* (06/24/2012 17:47:00) Negative 06/24/2012 ABN [facility] URINALYSIS UA Blood Negative (06/24/2012 17:47:00) Negative 06/24/2012 Normal [facility] URINALYSIS UA Nitrite Negative (06/24/2012 17:47:00) Negative 06/24/2012 Normal [facility] URINALYSIS UA Urobilinogen 0.2 EU/dL 0.1 - 1.0 06/24/2012 Normal [facility] URINALYSIS UA Turbidity Slight Cloudy (06/24/2012 17:47:00) Clear 06/24/2012 Normal [facility] URINALYSIS UA Glucose Negative (06/24/2012 17:47:00) Negative 06/24/2012 Normal [facility] URINALYSIS UA Ketones Negative *NA* (06/24/2012 17:47:00) Negative 06/24/2012 NA [facility] URINALYSIS UA pH 6.0 5.0 - 8.0 06/24/2012 Normal [facility] URINALYSIS UA Protein Negative (06/24/2012 17:47:00) Negative 06/24/2012 Normal [facility] URINALYSIS UA Spec Grav 1.015 <=1.030 06/24/2012 Normal [facility] URINALYSIS UA Color Yellow *NA* (06/24/2012 17:47:00) Yellow 06/24/2012 NA [facility] URINALYSIS UA Bili Negative *NA* (06/24/2012 17:47:00) Negative 06/24/2012 NA [facility] Vital Signs Vital Sign Value Date Comments Source Weight 99.091 07/21/2012 [facility] Height 162.56 cm 07/21/2012 [facility] Weight 99.091 07/16/2012 [facility] Height 162.56 cm 07/16/2012 [facility] Height 165.10 cm 06/24/2012 [facility] Weight 100.000 06/24/2012 [facility] Encounters Location Location Details Encounter Type Encounter Number Reason For Visit Attending Provider ADM Date DC Date Status Source [facility] Emergency [id number] COLIN WEINER 06/24/2012 06/24/2012 Active [facility] Emergency [id number] CARRILLO ASH 07/16/2012 07/16/2012 Active [facility] Emergency [id number] DOMI FAYE 07/20/2012 07/21/2012 Active [facility] Departed Emergency Room [id number] ABIODUN KHOURY MD 09/22/2017 09/23/2017 [facility] Departed Emergency Room [id number] GLORIA OKEEFE MD 05/22/2018 05/23/2018 [facility] Departed Emergency Room [id number] IRINEO NUNEZ MD 06/11/2018 06/11/2018 [facility] Departed Emergency Room [id number] SIS CASTAÑEDA MD 06/25/2018 06/26/2018 [facility] Discharged Inpatient [id number] PB EASLEY MD 06/28/2018 07/05/2018 [facility] Departed Emergency Room [id number] NGOC BRAND MD 08/27/2018 08/27/2018 [facility] Procedures Procedure Code Date Perfomer Comments Source EGD with biopsy [id number] 07/04/2018 DARMADI [facility] Magnetic resonance imaging of abdomen without then with contrast [id number] 06/29/2018 JORGE [facility] Computed tomography of abdomen and pelvis with contrast [id number] 06/28/2018 SRINIVAS [facility]
[2018-11-10] MEDS ORDERED: ASPIRIN 81 MG CHEW TAB PO ONE (10:45)
[2018-11-10] MEDS ORDERED: ONDANSETRON HCL INJ 2MG/ML 2ML 2 MG/ML VIAL IV STA (11:36)
--- NOTE | 2018-11-10 11:36 | Diagnostic Imaging Report ---
EXAMINATION: CXR 2 VIEW - HOPD INDICATION: Right-sided chest pain and tingling in the right arm COMPARISON: None FINDINGS: AP view TUBES and LINES: None. LUNGS: Lungs are well inflated. Lungs are clear. There is no evidence of pneumonia or pulmonary edema. PLEURA: No pleural effusion or pneumothorax. HEART AND MEDIASTINUM: The cardiomediastinal silhouette is unremarkable. Small hiatal hernia. BONES AND SOFT TISSUES: No acute osseous lesion. Soft tissues are unremarkable. UPPER ABDOMEN: No free air under the diaphragm. IMPRESSION: No acute thoracic abnormality. Signed by: Dr. Kathy Baldwin M.D. on 11/10/2018 11:33 AM
[2018-11-10] MEDS ORDERED: POTASSIUM CHLORIDE 10MEQ EA PO ONE (11:45)
--- NOTE | 2018-11-10 11:52 | NUR ---
[facility] CALLED FOR TRANSPORT
--- NOTE | 2018-11-10 11:53 | NUR ---
ARRIVED WITH NEW CURT WRAP TO RT WRIST STATING SHE WAS HAVING PAIN AND WRAPPED IT HERSELF. ASKED IF WENT TO URGENT/ER PT SAID NO AND WHEN TAKING OFF JACKET, NURSE NOTICED 12 LEAD STICKERS AND LEAD STICKERS. ASKED PT AGAIN REGARDING URGERNT CARE OR ER VISIT AND PT THEN STATES SHE "FORGOT" SHE WENT TO [facility] YESTERDAY FOR ABD PAIN AND DX CONSTIPATION. PT STATES THEY CURT WRAPPED HER WRIST...PT STATES TODAY NO ABD PAIN AND ONLY HER CHEST PAIN AND LEFT ARM PAIN..
[2018-11-10] MEDS ORDERED: MORPHINE SULFATE 5 MG/ML VIAL IV ONE (12:00)
[2018-11-10] MEDS ORDERED: NITROGLYCERIN 0.4 MG SUBL SL PRN (12:30)
[2018-11-10] MEDS ORDERED: SODIUM CHLORIDE FLUSH 10 ML SYR INJ PRN (12:30)
--- NOTE | 2018-11-10 12:35 | NUR ---
REPORT TO EMS
--- NOTE | 2018-11-10 13:02 | NUR ---
REPORT TO KEZIA
--- NOTE | 2018-11-10 13:15 | NUR ---
Recvd patient from [facility], AAOX3, Resp even and unlabored, assisted her to bed, not in any distress, Dr Rocío Kumari had rounds, new orders recvd from Dr Alberts
[2018-11-10 13:33] VITALS: BP 120/66
[2018-11-10] MEDS ORDERED: MORPHINE SULFATE INJ 4 MG/ML INJ 1ML IV ONE (13:45)
[2018-11-10] MEDS ORDERED: D5NS/KCL 20MEQ 1,000 ML IV SCH (13:45)
[2018-11-10] MEDS ORDERED: ACETAMINOPHEN/CODEINE 300MG - 30MG TAB PO PRN (13:45)
[2018-11-10 14:41] VITALS: BP 120/66
[2018-11-10] MEDS: ONDANSETRON HCL INJ 2MG/ML 2ML 2 MG/ML VIAL IV PRN ×2 (14:46→19:01)
[2018-11-10 16:05] VITALS: BP 110/63
[2018-11-10] MEDS: LACTULOSE SYRUP 20 GM/30 ML UDC PO SCH (17:00)
[2018-11-10] MEDS ORDERED: AMLODIPINE BESYLATE 10 MG TAB PO SCH (17:00)
[2018-11-10] MEDS: DOCUSATE SODIUM 100 MG CAP PO SCH (17:00)
[2018-11-10] MEDS ORDERED: ALBUTEROL SULFATE 2 MG TAB PO SCH (17:00)
[2018-11-10] MEDS: SUCRALFATE 1 GM/10 ML SUSP PO SCH (17:21)
--- NOTE | 2018-11-10 17:31 | NUR ---
patient is complaining of pain in the chest /. patient has been given prn pain medications and states they are not effective. Advisory Application Developer has been paged. awaiting call back from physician.
--- NOTE | 2018-11-10 18:00 | NUR ---
MD has returned call and given orders for pain medications. will continue to monitor patient for pain.
[2018-11-10] MEDS: MORPHINE SULFATE INJ 4 MG/ML INJ 1ML IV PRN (19:01)
[2018-11-10 20:00] VITALS: BP 107/62
[2018-11-10 20:19] VITALS: BP 107/62
--- NOTE | 2018-11-10 20:51 | History and Physical ---
CHIEF COMPLAINT: Left-sided chest pain. HISTORY OF PRESENT ILLNESS: This is a 43-year-old female with past medical history of chronic pain syndrome, chronic back pain, hypertension, and hypothyroidism, was in her usual state of health until she had some atypical left-sided chest pain, retrosternal in nature, radiating to the left arm. No shortness of breath. The patient went to the freestanding ER. Cardiac enzymes negative. EKG, nonspecific ST-T changes. The patient was sent back to admission at [facility] floor with telemetry. Occasional chest pain. No shortness of breath, no headaches. Has some chronic back pain, leg pain, and bone pain. No fever. No cough. No diarrhea, but has some constipation. No nausea. No vomiting. PAST MEDICAL HISTORY: 1. Hypertension. 2. Fibromyalgia. 3. Back ache. PAST SURGICAL HISTORY: 1. History of hysterectomy. 2. Gastric sleeve surgery. 3. Incarcerated hernia surgery. FAMILY HISTORY: Father diagnosed with hypotension and heart disease. Mother with diabetes and hypotension. SOCIAL HISTORY: This patient smokes cigarettes and no alcohol use, but she has marijuana use admitted today. ALLERGIES: ALLERGIC TO TRAMADOL. MEDICATIONS: List attached. REVIEW OF SYSTEMS: GENERAL: Denies fatigue or weakness. HEENT: No diplopia or blurred vision. CARDIOPULMONARY: Has some chest pain. No shortness of breath. No palpitation. ALIMENTARY SYSTEM: Mild nausea. No vomiting. Has constipation. GENITOURINARY SYSTEM: No dysuria. No hematuria. MUSCULOSKELETAL: No joint pain. CENTRAL NERVOUS SYSTEM: No focal weakness. PHYSICAL EXAMINATION: GENERAL: This is a 43-year-old female, in no acute distress. VITAL SIGNS: Temperature 97.3, pulse 51, respiratory rate 18, and blood pressure 120/66. HEENT: Head, atraumatic and normocephalic. Pupils bilaterally equal and reactive to light. Extraocular muscles are intact. NECK: Supple. No JVD. No carotid bruits. LUNGS: Clear to auscultation and percussion bilaterally. No added sounds. HEART: S1 and S2. Regular rate and rhythm. No S3, no S4, or murmur. ABDOMEN: Soft and nontender. Bowel sounds plus, active. No organomegaly. EXTREMITIES: No edema. Peripheral pulse +1. 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 LABORATORY DATA: Sodium 139, potassium 2.9, BUN 9, and creatinine 0.9. LFTS normal. Cardiac enzymes negative; CK, CK-MB, and troponin. White count 12.2, hemoglobin 12.5, hematocrit 36.9, and platelets 314. ASSESSMENT: 1. Atypical chest pain, rule out myocardial infarction. 2. Hypothyroidism. 3. Hypertension. 4. Chronic back pain. 5. Chronic pain syndrome. 6. Gastroesophageal reflux disease. 7. Gastric sleeve surgery. PLAN: Admit the patient to telemetry. Cardiac enzymes q.8h. x3. Home medicine. Labs in morning, CMP, CBC, lipid and thyroid profile in the morning. Stop pain medicine and give Tylenol No. 3 q.8 hours p.r.n. for pain. IV fluids, D5 half normal saline with 20 of K at 50 mL/hour. Recheck labs in the morning. Cardiology consult with Dr. Curry. Discussed condition and prognosis with the patient. MD ROMAINE Desai/NORMA /[id number]
[2018-11-10] MEDS ORDERED: TIZANIDINE HCL 4 MG TAB PO SCH (21:00)
[2018-11-10 22:50] LABS: CREATINE KINASE 64 IU/L (29-168)
[2018-11-11] VITALS: BP 93/50
[2018-11-11] MEDS: MORPHINE SULFATE INJ 4 MG/ML INJ 1ML IV PRN ×2 (01:39→06:07)
[2018-11-11] MEDS: ONDANSETRON HCL INJ 2MG/ML 2ML 2 MG/ML VIAL IV PRN ×2 (01:39→06:07)
[2018-11-11 05:20] VITALS: BP 99/56
[2018-11-11 05:59] LABS: BASOPHILS % 0.8 % (0.0-1.0); EOSINOPHILS # (AUTO) 0.3 (0.0-0.4); EOSINOPHILS % 8.4 % (0.0-6.0); HEMATOCRIT 28.9 % (34.2-44.1); HEMOGLOBIN 9.7 g/dL (12.0-16.0); LYMPHOCYTES % 51.7 % (18.0-39.1); MEAN CORPUSCULAR HEMOGLOBIN 31.1 pg (28-32); MEAN CORPUSCULAR HGB CONC 33.6 g/dL (31-35); MEAN CORPUSCULAR VOLUME 92.6 fL (81-99); MONOCYTES # (AUTO) 0.2 (0.2-0.8); MONOCYTES % 6.3 % (4.4-11.3); NEUTROPHILS # (AUTO) 1.2 (2.1-6.9); NEUTROPHILS % 32.5 % (38.7-80.0); PLATELET COUNT 261 x10e3/uL (140-360); RED BLOOD COUNT 3.12 x10e6/uL (3.6-5.1); RED CELL DISTRIBUTION WIDTH 14.5 % (11.7-14.4)
[2018-11-11] MEDS ORDERED: LIOTHYRONINE SODIUM 5 MCG TAB PO SCH (06:00)
[2018-11-11] MEDS: SUCRALFATE 1 GM/10 ML SUSP PO SCH ×2 (06:00)
--- NOTE | 2018-11-11 06:10 | NUR ---
patient has refused to take morning medications.
[2018-11-11 06:18] LABS: ALANINE AMINOTRANSFERASE 28 IU/L (0-55); ALBUMIN 2.7 g/dL (3.5-5.0); ALKALINE PHOSPHATASE 49 IU/L (40-150); ANION GAP 10.6 mmol/L (8-16); BLOOD UREA NITROGEN 8 mg/dL (7-26); BUN/CREATININE RATIO 11 (6-25); CALCIUM 9.1 mg/dL (8.4-10.2); CARBON DIOXIDE 28 mmol/L (22-29); CHLORIDE 106 mmol/L (98-107); CREATININE, SERUM 0.74 mg/dL (0.57-1.11); EST GLOMERULAR FILTRATION RATE > 60 ML/MIN (60-); GLUCOSE 74 mg/dL (74-118); POTASSIUM 4.6 mmol/L (3.5-5.1); SODIUM 140 mmol/L (136-145)
[2018-11-11 06:33] LABS: CHOL/HDL RATIO 2.1 (3.0-3.6)
[2018-11-11 06:45] LABS: CREATINE KINASE MB 0.3 ng/mL (0-5.0)
--- NOTE | 2018-11-11 06:49 | NUR ---
report given to day nurse. patient is resting in bed. bed is in lowest position and call bejarano is within reach.
[2018-11-11 07:26] LABS: FREE T4 (FREE THYROXINE) 0.81 ng/dL (0.9-1.8); THYROID STIMULATING HORMONE 1.977 uIU/mL (0.350-4.940)
[2018-11-11 07:39] VITALS: BP 95/53
[2018-11-11] MEDS ORDERED: DEXTROSE 5%/0.9% SOD CHL 1,000 ML IV SCH (08:30)
[2018-11-11] MEDS ORDERED: AMLODIPINE BESYLATE 10 MG TAB PO SCH (09:00)
[2018-11-11] MEDS: LACTULOSE SYRUP 20 GM/30 ML UDC PO SCH (09:00)
[2018-11-11] MEDS: DOCUSATE SODIUM 100 MG CAP PO SCH (09:00)
[2018-11-11] MEDS ORDERED: PANTOPRAZOLE 40 MG 10ML VIAL IV SCH (09:00)
--- NOTE | 2018-11-11 09:20 | NUR ---
noted that patient walking outside building to smoke, instructed her to dont smoke during hospitalization or she have to discharge AMA, Post Anesthesia Nurse aware.
[2018-11-11 10:03] VITALS: BP 95/53
[2018-11-11 11:32] VITALS: BP 101/50
[2018-11-11 12:58] LABS: CREATINE KINASE MB 0.4 ng/mL (0-5.0)
--- NOTE | 2018-11-11 13:10 | NUR ---
patient refused all her medications other than pain med, Dr Rocío Kumari aware about it, no new orders
--- NOTE | 2018-11-11 15:41 | NUR ---
Spoke with Cardiology Dr Alberts, he said patient can go home, New discharge order recvd from Dr Rocío Zavala with instructions of continue home meds, drink more water and, f/up with Dr Rocío zavala next week
--- NOTE | 2018-11-11 16:05 | NUR ---
patient discharged home, IV canula removed with tip intact, no ss of infiltration noted, her significant other at bed side to take her home, Tele box returned, not in any distress, transported via wheel chair to [facility], patient got all personnel belongings with her
--- NOTE | 2018-11-11 20:45 | Consultation ---
DATE OF CONSULTATION: Cardiology Consultation HISTORY OF PRESENT ILLNESS: This is a 43-year-old woman with a history of chronic pain syndrome, hypertension, hypothyroidism, and chronic back pain, who presented to the emergency department with atypical left-sided chest pain, worse with deep breathing and coughing. No exertional symptoms. No other exacerbating or relieving factors. REVIEW OF SYSTEMS: A 12-point review of system was conducted, is negative otherwise as stated above in the HPI. PAST MEDICAL HISTORY: As stated above in the HPI. PAST SURGICAL HISTORY: None recent. PAST FAMILY HISTORY: No premature coronary artery disease or sudden cardiac . SOCIAL HISTORY: Tobacco use. No illicit drug or alcohol use. ALLERGIES: TRAMADOL. MEDICATIONS: See medication reconciliation form. PHYSICAL EXAMINATION: VITAL SIGNS: She is afebrile. Heart rate is 60, respirations are 18, blood pressure is 101/50, and oxygen saturation 100% on room air. GENERAL: Well appearing, well built, no apparent distress. Alert and oriented x3. HEAD: Normocephalic, atraumatic. EYES: Extraocular muscles are intact. Conjunctivae are clear. NECK: No JVD. No bruits. CARDIOVASCULAR: Regular rate and rhythm. LUNGS: Clear to auscultation bilaterally. No wheezes. No rales. ABDOMEN: Soft, nontender, and nondistended. EXTREMITIES: No clubbing, cyanosis, or edema. VASCULAR: 2+ pulses. SKIN: Warm, dry, and intact. LABORATORY DATA: Hemoglobin 9.7, creatinine 0.7. Troponin negative x3. LDL 65. A 12-lead electrocardiogram shows normal sinus rhythm. Echocardiogram showed preserved left ventricular systolic function with normal valves. IMPRESSION: 1. Atypical chest pain. 2. Chronic pain. 3. Gastroesophageal reflux disease. 4. Hypothyroidism. 5. Hypertension. RECOMMENDATIONS: The patient has ruled out for acute myocardial infarction. The pain is likely musculoskeletal in character. Her echocardiogram was within normal limits. The patient maybe discharged from a cardiovascular standpoint with outpatient followup. Everton Alberts DO BM/MODL /[id number]
[2018-11-12] MEDS ORDERED: LEVOTHYROXINE SODIUM 50 MCG TAB PO SCH (06:00)
== END 2018-11-11 16:00 | disposition home or self-care (01) ==
LOC: FSED 10:05 → ERHOLD 12:21 → IMCU 12:59
PROVIDERS: ADMIT Internal Medicine; ATTEND Internal Medicine
DX: R07.89 Other chest pain (principal); I11.0 Hypertensive heart disease with heart failure; I50.9 Heart failure, unspecified; J44.9 Chronic obstructive pulmonary disease, unspecified; E03.8 Other specified hypothyroidism; Z87.891 Personal history of nicotine dependence; G89.4 Chronic pain syndrome; E03.9 Hypothyroidism, unspecified; M79.7 Fibromyalgia; K21.9 Gastro-esophageal reflux disease without esophagitis; Z98.84 Bariatric surgery status
CPT/HCPCS: 36415 ×2; 71046; 80053 ×2; 80061; 80307; 81003; 81025; 82550 ×2; 82553 ×2; 82948; 83735; 84439; 84443; 84481; 84484 ×2; 85025 ×2; 85379; 93005; 93306; 99284; C9113; G0378 ×2; J2270 ×3; J2405 ×2; J7042

== ENCOUNTER 2020-11-24 16:49 | Emergency (ER) | payer MEDICARE ==
[~2020-11-24] VITALS: Ht 157.5 cm; Wt 59.9 kg
[2020-11-24] MEDS ORDERED: SODIUM CHLORIDE 0.9% 1000ML 1,000 ML IV STA (17:37)
[2020-11-24] MEDS ORDERED: ONDANSETRON HCL INJ 2MG/ML 2ML 2 MG/ML VIAL IV ONE (17:45)
[2020-11-24] MEDS ORDERED: FAMOTIDINE 20 MG/2 ML VIAL IV ONE ×2 (17:45→18:15)
[2020-11-24] MEDS ORDERED: KETOROLAC TROMETHAMINE 30 MG/ML VIAL IV ONE (18:00)
[2020-11-24] MEDS ORDERED: KETOROLAC TROMETHAMINE 30 MG/ML VIAL ONE (18:14)
[2020-11-24] MEDS ORDERED: SODIUM CHLORIDE 0.9% 1000ML 1,000 ML ONE (18:15)
[2020-11-24] MEDS ORDERED: ONDANSETRON HCL INJ 2MG/ML 2ML 2 MG/ML VIAL ONE (18:15)
[2020-11-24] MEDS ORDERED: OMEPRAZOLE40 MG PO (19:22)
[2020-11-24] MEDS ORDERED: PROMETHAZINE HC25 M1 PO (19:22)
[2020-11-24] MEDS ORDERED: CEFDINIR300 MG PO (19:22)
[2020-11-24] MEDS ORDERED: TYLENOL # 31 EA PO (19:22)
[2020-11-24 19:35] VITALS: BP 132/81
== END 2020-11-24 19:35 | disposition home or self-care (01) ==
LOC: FSED 17:40
DX: R10.31 Right lower quadrant pain (principal); R11.2 Nausea with vomiting, unspecified; K52.9 Noninfective gastroenteritis and colitis, unspecified; I10 Essential (primary) hypertension; E78.5 Hyperlipidemia, unspecified; I50.9 Heart failure, unspecified; J44.9 Chronic obstructive pulmonary disease, unspecified; M79.7 Fibromyalgia; E66.01 Morbid (severe) obesity due to excess calories; Z85.3 Personal history of malignant neoplasm of breast; Z85.05 Personal history of malignant neoplasm of liver; Z86.73 Personal history of transient ischemic attack (TIA), and cerebral infarction without residual deficits
CPT/HCPCS: 74176; 80053; 81003; 85025; 99284; J1885; J2405; J7030

== ENCOUNTER 2021-01-29 10:16 | Emergency (ER) | payer MEDICARE ==
[~2021-01-29] VITALS: Ht 157.5 cm; Wt 60.5 kg
[~2021-01-29 10:16] MED LIST changes: +CEFDINIR300 MG PO; +OMEPRAZOLE40 MG PO; +PROMETHAZINE HC25 M1 PO
[2021-01-29] MEDS ORDERED: DEXAMETHASONE SOD PHOS 10 MG/1 ML VIAL IV ONE (11:00)
[2021-01-29] MEDS ORDERED: FAMOTIDINE 20 MG/2 ML VIAL IV ONE ×2 (11:00→11:37)
[2021-01-29] MEDS ORDERED: KETOROLAC TROMETHAMINE 30 MG/ML VIAL IV ONE (11:00)
[2021-01-29] MEDS ORDERED: PROMETHAZINE 12.5MG/ NACL 0.9% 12.5 MG/50 ML BAG IV PRN (11:00)
[2021-01-29] MEDS ORDERED: SODIUM CHLORIDE 0.9% 1000ML 0 ML ONE (11:24)
[2021-01-29] MEDS ORDERED: ONDANSETRON HCL INJ 2MG/ML 2ML 2 MG/ML VIAL ONE (11:24)
[2021-01-29] MEDS ORDERED: DEXAMETHASONE SOD PHOS INJ 4 MG/ML VIAL ONE (11:36)
[2021-01-29] MEDS ORDERED: PROMETHAZINE HCL (IM) 25 MG/ML VIAL IM ONE (11:36)
[2021-01-29] MEDS ORDERED: KETOROLAC TROMETHAMINE 30 MG/ML VIAL ONE (11:36)
[2021-01-29] MEDS ORDERED: SODIUM CHLORIDE 0.9% 100 ML ONE (11:37)
[2021-01-29] MEDS ORDERED: ACETAMINOPHEN 325 MG TAB PO PRN (12:00)
[2021-01-29] MEDS ORDERED: FAMOTIDINE 20 MG/2 ML VIAL IV SCH (12:00)
[2021-01-29] MEDS ORDERED: CEFTRIAXONE 1 GM VIAL IV ONE (12:00)
[2021-01-29] MEDS ORDERED: DIPHENHYDRAMINE HCL INJ 50 MG/ML VIAL IV PRN (12:00)
[2021-01-29] MEDS ORDERED: ONDANSETRON HCL INJ 2MG/ML 2ML 2 MG/ML VIAL IV PRN (12:00)
[2021-01-29] MEDS ORDERED: SODIUM CHLORIDE FLUSH 10 ML SYR INJ PRN (12:00)
[2021-01-29] MEDS ORDERED: ONDANSETRON ODT4 MG PO (12:22)
[2021-01-29] MEDS ORDERED: CEFDINIR300 MG PO (12:22)
[2021-01-29] MEDS ORDERED: ACETAMINOPHEN-1 EAC4 PO (12:22)
[2021-01-29] MEDS ORDERED: CEFTRIAXONE 1 GM VIAL ONE (12:32)
[2021-01-29] MEDS ORDERED: SIMVASTATIN 20 MG TAB PO SCH (21:00)
[2021-01-30] MEDS ORDERED: ASPIRIN 81 MG ENTERIC COATED PO SCH (09:00)
== END 2021-01-29 12:37 | disposition home or self-care (01) ==
LOC: FSED 10:27 → ERHOLD 11:56 → UNDOADMOB 11:56
DX: R06.02 Shortness of breath (principal); R07.9 Chest pain, unspecified; J02.0 Streptococcal pharyngitis; R00.1 Bradycardia, unspecified; R11.2 Nausea with vomiting, unspecified; N30.90 Cystitis, unspecified without hematuria; R10.9 Unspecified abdominal pain; R94.31 Abnormal electrocardiogram [ECG] [EKG]; Z20.822 Contact with and (suspected) exposure to COVID-19; F17.210 Nicotine dependence, cigarettes, uncomplicated
CPT/HCPCS: 71045; 80053; 81003; 82553; 83518; 84484; 85025; 87400; 87420; 93005; 99284; J0696; J1100 ×2; J1885; J2550; J7050; U0002; J2405; J7030

== ENCOUNTER 2021-12-29 23:13 | Emergency (ER) | payer MEDICARE ==
[~2021-12-29] VITALS: Ht 157.5 cm; Wt 76.2 kg
[~2021-12-29 23:13] MED LIST changes: +ACETAMINOPHEN-1 EAC4 PO; +ONDANSETRON ODT4 MG PO
[2021-12-30] MEDS ORDERED: CEFTRIAXONE 1 GM VIAL IM ONE (00:15)
[2021-12-30] MEDS ORDERED: KETOROLAC TROMETHAMINE 30 MG/ML VIAL IM STA (00:15)
[2021-12-30] MEDS ORDERED: ONDANSETRON HCL 4 MG ORAL DISINTEGRATING TAB PO ONE (00:30)
[2021-12-30] MEDS ORDERED: CEFDINIR300 MG PO (00:44)
[2021-12-30] MEDS ORDERED: ONDANSETRON ODT4 MG PO (00:45)
[2021-12-30] MEDS ORDERED: PREDNISONE20 MG PO (00:46)
[2021-12-30] MEDS ORDERED: HYDROCODON-ACE1 EA11 PO ×2 (00:47→00:51)
== END 2021-12-30 01:19 | disposition home or self-care (01) ==
LOC: FSED 23:32
DX: M25.571 Pain in right ankle and joints of right foot (principal); L02.512 Cutaneous abscess of left hand; L03.012 Cellulitis of left finger; E03.9 Hypothyroidism, unspecified; M06.9 Rheumatoid arthritis, unspecified; M79.7 Fibromyalgia; K74.60 Unspecified cirrhosis of liver; I11.0 Hypertensive heart disease with heart failure; I50.9 Heart failure, unspecified; F17.200 Nicotine dependence, unspecified, uncomplicated; Z71.6 Tobacco abuse counseling; Z88.6 Allergy status to analgesic agent; Z91.018 Allergy to other foods; Z79.899 Other long term (current) drug therapy; Z86.2 Personal history of diseases of the blood and blood-forming organs and certain disorders involving the immune mechanism
CPT/HCPCS: 99283

== ENCOUNTER 2024-05-02 20:50 | Emergency (ER) | payer MEDICARE ==
[~2024-05-02] VITALS: Ht 157.5 cm; Wt 70.3 kg
[~2024-05-02 20:50] MED LIST changes: +ALBUTEROL SULFAT2 MG INH; -ALBUTEROL SULFAT2 MG PO; +AMOX TR-K CLV1 EAC2 PO; +CEPHALEXIN500 MG PO; +FAMOTIDINE40 MG PO; +GABAPENTIN300 MG PO; +HYDROCODON-ACE1 EA11 PO; +KEFLEX125 MG/5 M PO; +LASIX20 MG PO; +LINZESS290 MCG PO; +LOSARTAN POTAS100 MG PO; +NIFEDIPINE ER30 M1 PO; +NITROSTAT0.4 MG SL; +OMEPRAZOLE20 MG PO; +ONDANSETRON ODT4 MG SL; +PREDNISONE20 MG PO; +SYMBICORT 16010.2 GM INH; +TRELEGY ELLIPT1 EAC1 INH; +VITAMIN D250 MC1 PO; +[UNRECOGNIZED DRUG - OTHER] PO
[2024-05-02 21:15] VITALS: PULSE 53; RESP 18; TEMP 97.6
[2024-05-02] MEDS: IBUPROFEN 600 MG TAB PO STA (22:24)
[2024-05-02] MEDS: BACITRACIN ZINC 0.9GM TP ONE (22:29)
[2024-05-02] MEDS: TETANUS/DIPHTHERIA TOX ADULT 0.5 ML SYR IM ONE (22:30)
[2024-05-02] MEDS: ACETAMINOPHEN/CODEINE 300MG - 30MG TAB PO ONE (22:37)
[2024-05-02] MEDS ORDERED: CEPHALEXIN500 MG PO (22:46)
[2024-05-02] MEDS ORDERED: MUPIROCIN22 GM TOP (22:47)
[2024-05-02] MEDS ORDERED: KETOROLAC TROMETHAMINE 30 MG/ML VIAL IM STA (23:03)
[2024-05-02] MEDS ORDERED: KETOROLAC TROMETHAMINE 30 MG/ML VIAL ONE (23:18)
[2024-05-02] MEDS ORDERED: ACETAMINOPHEN-1 EAC3 PO (23:51)
[2024-05-02] MEDS ORDERED: CYCLOBENZAPRINE5 MG PO (23:54)
[2024-05-03] MEDS ORDERED: CYCLOBENZAPRINE5 MG PO (00:06)
[2024-05-03 00:13] VITALS: BP 127/69; PULSE 53; RESP 18; TEMP 98.6; O2SAT 100
== END 2024-05-03 00:13 | disposition home or self-care (01) ==
LOC: FSED 21:00
DX: S80.212A Abrasion, left knee, initial encounter (principal); S80.02XA Contusion of left knee, initial encounter; W22.09XA Striking against other stationary object, initial encounter; Y93.01 Activity, walking, marching and hiking; Y92.89 Other specified places as the place of occurrence of the external cause; I10 Essential (primary) hypertension; I50.9 Heart failure, unspecified; K76.9 Liver disease, unspecified; M19.09 Primary osteoarthritis, other specified site; M79.7 Fibromyalgia; Z98.84 Bariatric surgery status
CPT/HCPCS: 73562; 90471; 90714; 96372; 99282; J1885

== ENCOUNTER 2024-06-24 13:31 | Emergency (ER) | payer MEDICARE ==
[~2024-06-24] VITALS: Ht 157.5 cm; Wt 70.4 kg
[~2024-06-24 13:31] MED LIST changes: +ACETAMINOPHEN-1 EAC3 PO; +CYCLOBENZAPRINE5 MG PO; +MUPIROCIN22 GM TOP
[2024-06-24] MEDS: HYDROCODONE/APAP 5MG-325MG TAB PO ONE (15:06)
[2024-06-24 16:01] VITALS: PULSE 68; RESP 16; TEMP 97.4
[2024-06-24] MEDS ORDERED: CORICIDIN HBP1 EAC3 PO (16:05)
[2024-06-24] MEDS ORDERED: AMOXICILLIN500 MG PO (16:06)
[2024-06-24] MEDS ORDERED: HYDROCODON-ACE1 EA16 PO (16:08)
[2024-06-24 16:21] VITALS: BP 170/89; PULSE 68; RESP 16; TEMP 97.4; O2SAT 98
== END 2024-06-24 16:20 | disposition home or self-care (01) ==
LOC: FSED 13:35
DX: S06.0X0A Concussion without loss of consciousness, initial encounter (principal); S20.214A Contusion of middle front wall of thorax, initial encounter; Y04.0XXA Assault by unarmed brawl or fight, initial encounter; Y92.89 Other specified places as the place of occurrence of the external cause; R05.9 Cough, unspecified; J06.9 Acute upper respiratory infection, unspecified; I10 Essential (primary) hypertension; I50.9 Heart failure, unspecified; K76.9 Liver disease, unspecified; M19.09 Primary osteoarthritis, other specified site; M79.7 Fibromyalgia
CPT/HCPCS: 70450; 70486; 71046; 72131; 99284